=== PATIENT | female | born 1965 | race Caucasian/White ===

== ENCOUNTER 2020-05-14 17:59 | Emergency (ER) | payer OTHER, SELFPAY ==
--- NOTE | ~2020-05-14 | XR_ITS ---
EXAMINATION: XR chest 1V portable EXAM DATE: 05/14/2020 19:01 INDICATION: Cough. Shortness of breath. TECHNIQUE: Portable AP frontal chest x-ray was obtained. There is no prior study for comparison. FINDINGS: The cardiac silhouette is enlarged. Moderate hyperinflation. No confluent consolidation, pn eumothorax or pleural effusion suspected. There are no osseous abnormalities identified. IMPRESSION: 1. Cardiomegaly. 2. Hyperinflation. Reviewed, dictated and finalized at location A.
--- NOTE | 2020-05-14 18:03 | ECG_ITS ---
Measurements Intervals [place] Rate: 104 P: 35 HI: 164 QRS: -48 QRSD: 117 T: 79 QT: 323 QTc: 426 Interpretive Statements SINUS TACHYCARDIA POSSIBLE LEFT ATRIAL ENLARGEMENT LEFT ANTERIOR FASCICULAR BLOCK LEFT VENTRICULAR HYPERTROPHY AND ST-T CHANGE POOR R WAVE PROGRESSION, ANTERIOR LEADS BASELINE WANDER- I, II, III, AVR ABNORMAL ECG Electronically Signed On 05-14-2020 20:53:47 CDT by Chintan Quintero D.O.
[2020-05-14 18:04] VITALS: BP 183/87; PULSE 104; RESP 18; TEMP 36.2; O2SAT 97
[2020-05-14 18:33] VITALS: BP 199/102; PULSE 107; RESP 20; O2SAT 96
--- NOTE | 2020-05-14 19:10 | ED.URI ---
HPI - URI/Sore Throat General Chief Complaint: Upper Respiratory Infection Stated Complaint: cough, headache, feeling hot, covid tested Time Seen by Provider: 05/14/20 18:50 Source: patient Mode of arrival: ambulatory Limitations: no limitations History of Present Illness HPI Narrative: This is a 54 year old female that presents to the ER for cold symptoms x 2 days. Reports cough, congestion, headache and shortness of breath. Reports subjective fevers. Reports her father recently and was found to have coronavirus. Denies chest pain. Related Data Allergies Allergy/AdvReac Type Severity Reaction Status Date / Time No Known Allergies Allergy Verified 05/14/20 18:01 Review of Systems Review of Systems: Narrative: CONSTITUTIONAL: Reports fever, chills ENT: Reports rhinorrhea, congestion. Denies sore throat CARDIOVASCULAR: Denies chest pain or edema. RESPIRATORY: Reports cough and dyspnea. All systems reviewed & are unremarkable except as noted in HPI and below PMFSH Past Medical History Medical History (Updated 05/14/20 @ 21:19 by Zenobia Hogan PA-C) History of CHF (congestive heart failure) History of diabetes mellitus History of hyperlipidemia Social History Social History Gender identity (if verbalized by the patient): Female Exam Narrative: Exam Narrative: GENERAL: Well-appearing, obese, and in no acute distress. HEAD: Normocephalic, atraumatic. EYES: EOMI. ENT: Nares clear, no rhinorrhea or epistaxis. Mucous membranes moist. Oropharynx without tonsillar hypertrophy exudate or other lesions. Bilateral TMs pearly bill non-bulging NECK: Supple. No adenopathy or masses. CHEST: Clear to auscultation. No respiratory distress. No wheezes rales or rhonchi HEART: Regular rate and rhythm. No murmur heard. Normal peripheral pulses. EXTREMITIES: Normal range of motion. No edema. SKIN: Warm, dry, no rash. NEURO: No focal deficits. Alert and oriented x3. PSYCH: Normal mood and affect Course Vital Signs Vital signs: Vital Signs Temperature 97.1 F L 05/14/20 18:04 Pulse Rate 104 H 05/14/20 18:04 Respiratory Rate 18 05/14/20 18:04 Blood Pressure 183/87 H 05/14/20 18:04 Pulse Oximetry 97 05/14/20 18:04 Temperature 97.1 F L 05/14/20 18:04 Pulse Rate 102 H 05/14/20 20:38 Respiratory Rate 20 05/14/20 20:38 Blood Pressure 159/82 H 05/14/20 19:35 Pulse Oximetry 96 05/14/20 20:38 MDM - URI/Sore Throat MDM Narrative Medical decision making narrative: Patient presents to the emergency department for cold symptoms since yesterday. She is afebrile and nontoxic-appearing. Blood pressure elevated upon arrival, this improved without intervention. Patient's oxygen saturation has remained normal on room air. CBC without acute findings. Metabolic panel with mild hypokalemia and transaminitis, otherwise no acute findings. Patient given a dose of potassium in the ED. BNP is elevated to 1430. No vascular congestion noted on chest x-ray and no lower extremity edema. D-dimer is not elevated. Patient was tested today for coronavirus. Her father recently and was COVID positive. Patient able to ambulate in the ED and maintain oxygen saturation. She is stable and felt appropriate for further outpatient evaluation. She was given warnings to return to the ER Lab Data Attestation: I reviewed the patient's lab results. Result diagrams: 05/14/20 19:25 05/14/20 19:25 Labs: Lab Results 05/14/20 05/14/20 05/14/20 Range/Units 19:25 19:25 19:25 WBC 5.5 (4.5-10.0) K/mm3 RBC 4.42 (4.2-5.4) M/mm3 Hgb 13.3 (12.0-15.0) g/dL Hct 38.8 (37.0-47.0) % MCV 87.8 (80-100) fl MCH 30.1 (26-34) pg MCHC 34.3 (32-36) g/dl RDW 13.0 (11.5-14.5) % Plt Count 246 (150-375) k/mm3 MPV 10.5 H (7.4-10.4) fl Immature Gran % (Auto) 0.4 (0-0.5) % Neut % (Auto) 70.4 (45.5-73.1) % Lymph % (Auto) 11.4 L (18.3-44.2) % M
[2020-05-14 19:35] VITALS: BP 159/82; PULSE 105; RESP 22; O2SAT 96
[2020-05-14 19:46] LABS: Basophils Absolute Auto 0.1 K/mm3 (0.0-0.1); Basophils Percent Auto 0.9 % (0.2-1.2); Eosinophils Absolute Auto 0.2 K/mm3 (0-0.3); Eosinophils Percent Auto 2.7 % (0-4.4); Hematocrit 38.8 % (37.0-47.0); Hemoglobin 13.3 g/dL (12.0-15.0); Immature Granulocyte Absolute 0.02 K/mm3 (0.00-0.031); Immature Granulocyte Percent A 0.4 % (0-0.5); Lymphocytes Absolute Auto 0.63 K/mm3 (0.9-3.2); Lymphocytes Percent Auto 11.4 % (18.3-44.2); Mean Corpuscular HGB Conc 34.3 g/dl (32-36); Mean Corpuscular Hemoglobin 30.1 pg (26-34); Mean Corpuscular Volume 87.8 fl (80-100); Mean Platelet Volume 10.5 fl (7.4-10.4); Monocytes Absolute Auto 0.8 K/mm3 (0.1-0.6); Monocytes Percent Auto 14.2 % (2.6-8.5); Neutrophils Absolute Auto 3.9 K/mm3 (1.3-6.7); Neutrophils Percent Auto 70.4 % (45.5-73.1); Platelet Count Result 246 k/mm3 (150-375); Red Blood Count 4.42 M/mm3 (4.2-5.4); White Blood Count 5.5 K/mm3 (4.5-10.0)
[2020-05-14 19:54] LABS: INR 1.1; Prothrombin Time 13.5 Seconds (11.1-14.7)
[2020-05-14 19:55] LABS: Partial Thromboplastin Time 28.1 SECONDS (22.3-36.8)
[2020-05-14 19:57] LABS: D Dimer 0.32 ug/mL (<0.48)
[2020-05-14 20:02] LABS: Alanine Aminotransferase 49 U/L (4-35); Albumin Level 4.6 g/dL (3.5-5.1); Alkaline Phosphatase 87 U/L (38-126); Anion Gap 13 mmol/L (8-16); Aspartate Amino Transferase 67 U/L (14-36); Bilirubin,Total 0.8 mg/dL (0.2-1.3); Blood Urea Nitrogen 10 mg/dL (7-17); CRP 1.3 mg/dL (<1.0); Calcium 8.7 mg/dL (8.4-10.2); Carbon Dioxide 27 mmol/L (22-30); Chloride 96 mmol/L (98-107); Estimated CRCL calculation 96 ml/min; Estimated Glomerular Filt Rate > 60; Glucose 168 mg/dL (65-105); Lactate Dehydrogenase 546 U/L (313-618); Potassium 3.1 mmol/L (3.4-5.0); Sodium 136 mmol/L (137-145)
[2020-05-14 20:08] LABS: NT Pro B Type Natriuretic Pept 1430 PG/ML (5-100)
[2020-05-14 20:38] VITALS: PULSE 102; RESP 20; O2SAT 96
[2020-05-14 21:50] VITALS: BP 150/81; PULSE 104; RESP 20; O2SAT 95
== END 2020-05-14 22:22 | disposition home or self-care (01) ==
PROVIDERS: Physician Assistant; Emergency Provider Emergency Medicine
DX: B34.9 Viral infection, unspecified (principal); Z20.828 Contact with and (suspected) exposure to other viral communicable diseases; E11.9 Type 2 diabetes mellitus without complications; I50.9 Heart failure, unspecified; E78.5 Hyperlipidemia, unspecified; I51.7 Cardiomegaly; R00.0 Tachycardia, unspecified; R94.31 Abnormal electrocardiogram [ECG] [EKG]; I44.4 Left anterior fascicular block
CPT/HCPCS: 36415; 71045; 80053; 82728; 83615; 83880; 85025; 85380; 85610; 85730; 86140; 93005; 99284

== ENCOUNTER 2021-03-24 14:43 | Inpatient (IN) | payer OTHER, SELFPAY ==
[2021-03-24] VITALS (24 sets, daily range): BP systolic 142–172; BP diastolic 79–106; PULSE 81–97; RESP 15–32; TEMP 36.1–36.6; O2SAT 95–100; BMI 30.3
--- NOTE | ~2021-03-24 | XR_ITS ---
XR chest 2V DATE: 03/24/2021 15:10 INDICATION: Chest heaviness, shortness of breath. History of congestive heart failure, diabetes melli tus TECHNIQUE: PA and lateral views COMPARISON: 05/14/2020 portable AP chest FINDINGS: Cardiomegaly. No hilar or mediastinal enlargement. No pulmonary infiltrate or consolidation , pleural effusion or pulmonary vascular congestion or pneumothorax. Aortic calcification and minimal aortic unfolding. Mild degenerative spurring of the thoracic spine. IMPRESSION: Cardiomegaly; no active pulmonary disease or congestive change Reviewed, dictated and finalized at location A.
--- NOTE | 2021-03-24 14:58 | ECG_ITS ---
Measurements Intervals [place] Rate: 91 P: 41 CO: 168 QRS: -63 QRSD: 114 T: 84 QT: 406 QTc: 502 Interpretive Statements SINUS RHYTHM POSSIBLE LEFT ATRIAL ENLARGEMENT LEFT ANTERIOR FASCICULAR BLOCK NONSPECIFIC ST & T-WAVE ABNORMALITY- HIGH LATERAL LEADS ABNORMAL ECG Electronically Signed On 03-25-2021 8:16:15 CDT by Chintan Quintero D.O.
[2021-03-24 15:09] LABS: Basophils Absolute Auto 0.1 K/mm3 (0.0-0.1); Basophils Percent Auto 0.9 % (0.2-1.2); Eosinophils Absolute Auto 0.2 K/mm3 (0-0.3); Eosinophils Percent Auto 2.3 % (0-4.4); Hematocrit 42.1 % (37.0-47.0); Hemoglobin 13.5 g/dL (12.0-15.0); Immature Granulocyte Absolute 0.02 K/mm3 (0.00-0.031); Immature Granulocyte Percent A 0.3 % (0-0.5); Lymphocytes Absolute Auto 1.48 K/mm3 (0.9-3.2); Lymphocytes Percent Auto 18.6 % (18.3-44.2); Mean Corpuscular HGB Conc 32.1 g/dl (32-36); Mean Corpuscular Hemoglobin 28.9 pg (26-34); Mean Corpuscular Volume 90.1 fl (80-100); Monocytes Absolute Auto 0.5 K/mm3 (0.1-0.6); Monocytes Percent Auto 6.8 % (2.6-8.5); Neutrophils Absolute Auto 5.7 K/mm3 (1.3-6.7); Neutrophils Percent Auto 71.1 % (45.5-73.1); Platelet Count Result 316 k/mm3 (150-375); Red Blood Count 4.67 M/mm3 (4.2-5.4); Red Cell Distribution Width 14.7 % (11.5-14.5)
[2021-03-24 15:19] LABS: INR 1.3; Prothrombin Time 16.9 Seconds (11.1-14.7)
[2021-03-24 15:23] LABS: Anion Gap 15 mmol/L (8-16); Blood Urea Nitrogen 13 mg/dL (7-17); Calcium 9.2 mg/dL (8.4-10.2); Carbon Dioxide 20 mmol/L (22-30); Chloride 104 mmol/L (98-107); Estimated CRCL calculation 90 ml/min; Estimated Glomerular Filt Rate > 60; Glucose 184 mg/dL (65-105); Sodium 139 mmol/L (137-145)
[2021-03-24 15:35] LABS: NT Pro B Type Natriuretic Pept 13300 pg/mL (5-100); Troponin I 0.021 ng/mL (0.000-0.034)
[2021-03-24] MEDS: BUMETANIDE INJ 1 MG/4 ML VIAL 2 MG IV PUSH (16:40)
[2021-03-24] MEDS: POTASSIUM CHLORIDE 20 MEQ TABLET PO (16:40)
--- NOTE | 2021-03-24 17:55 | ED.SOB ---
HPI - SOB/Dyspnea General Chief Complaint: Shortness of Breath/Dyspnea Stated Complaint: SOB Time Seen by Provider: 03/24/21 16:25 Source: patient Mode of arrival: ambulatory Limitations: no limitations History of Present Illness HPI Narrative: 55-year-old female Here for shortness of breath Patient says she was diagnosed with congestive heart failure at the time of an ER visit at [facility] about 5 years ago She used to see a doctor in the area but they moved to [place] and for the last year she really has only been taking leftover medications and not seeing anybody She still has metoprolol but is out of Lasix She did say that she thinks he had Covid in May diagnosed here, but I cannot see that we have any Covid testing results in the EMR Her report is that she feels like she has shortness of breath and chest tightness all the time, does not matter if she is sitting or laying down or ambulating She has a tiny bit of swelling in her legs She does not have fever or cough Related Data Home Medications Medication Instructions Recorded Confirmed metoprolol tartrate 03/24/21 03/24/21 Allergies Allergy/AdvReac Type Severity Reaction Status Date / Time No Known Allergies Allergy Verified 03/24/21 14:57 Review of Systems Review of Systems: All systems reviewed & are unremarkable except as noted in HPI and below Constitutional: Constitutional: Reports no additional constitutional complaints, Denies chills, Denies fever(s) and Denies headache(s) Eyes: Eyes: Reports no additional eye complaints and Denies change in vision ENT: Denies headache(s) and Denies sore throat Cardiovascular: Cardiovascular: Reports chest pain, Denies radiating jaw, neck or arm pain and Denies dyspnea Respiratory: Respiratory: Denies cough and Reports dyspnea Gastrointestinal: Gastrointestinal: Denies abdominal pain, Denies diarrhea, Denies nausea and Denies vomiting Genitourinary: Genitourinary: Denies urinary frequency and Denies dysuria Musculoskeletal: Musculoskeletal: Denies deformity, Denies arthralgias, Denies joint swelling and Denies numbness Integumentary/Breasts: Skin/Breast: Denies rash and Denies wounds Neurologic: Denies headache(s), Denies focal weakness and Denies numbness Psychiatric: Psychiatric: Reports no additional psychiatric complaints Endocrine: Endocrine: Reports no additional endocrine complaints Hematologic/Lymphatic: Hematologic/Lymphatic: Reports no additional hematologic/lymphatic complaints Allergic/Immunologic: Allergic/Immunologic: Reports no additional allergic/immunologic complaints [facility] Past Medical History Medical History (Updated 03/24/21 @ 19:42 by Rajehs Reynaga MD) History of CHF (congestive heart failure) History of diabetes mellitus History of hyperlipidemia Social History Social History Gender identity (if verbalized by the patient): Female Exam Const: General: cooperative, no acute distress and alert Orientation/consciousness: patient oriented x3 (alert) HENMT: Head: normal to inspection, normocephalic and atraumatic Ears: external ears normal General nose exam: no epistaxis Eyes: Conjunctivae: conjunctivae normal EOM: EOMs intact bilaterally Neck: Neck: normal visual inspection, supple and no JVD Resp: Effort & Inspection: normal respiratory effort and not labored Auscultation: clear to auscultation bilaterally and other (BS =) Cardio: Rate: regular rate Rhythm: regular rhythm Heart sounds: no murmurs GI: GI Palp: Yes Soft to palpation and No Tenderness to palpation present (GI) Skin: General skin exam: normal color and no rashes or lesions noted Neuro: General: patient oriented x3 (alert) and moves all extremities Speech: normal speech Extrem: General: normal to inspection Other: Trace edema Psych: Affect: normal affect Course Course Emergency Course: Improved after diuresis and treatment of hypertension Discussed with hospital
[2021-03-24] MEDS: ENALAPRILAT 1.25 MG/ML VIAL IV PUSH (18:34)
--- NOTE | 2021-03-24 21:47 | PM.IMHP ---
H&P: HPI History of Present Illness Date/Time: 03/24/21 21:47 Chief Complaint: Shortness of breath Narrative: patient is a 55-year-old female with diagnosis of congestive heart failure with systolic dysfunction back 5 years ago with ejection fraction at 15% was given a LifeVest at that time and some medications. Follow-up echocardiogram with improvement of her heart failure up to 45% and subsequent removal of the life vest. He never followed up with copy messenger since then . Wil used to see her regular doctor and is on Lasix and metoprolol. She has not seen her doctor who is in [place] since a year now. She ran out of her Lasix couple of days ago. Wil started feeling short of breath and cough. She also reports some chest heaviness since past few days. She denies any chest pain per se that. See also notes increased swelling in her legs. No fever or chills. She did have COVID infection back in May and subsequent vaccination against COVID in December of 2020. Workup in the ER revealed normal CBC and BMP troponin was negative at 0.021 [place] [address]. Her chest x-ray showed cardiomegaly with no active pulmonary disease or congestive changes. She was given IV Lasix in the ER. EKG showed normal rate with sinus rhythm left axis deviation with no acute changes compared to previous was unchanged. she is feeling little better since She got the Lasix in the ER Review of Systems Review of Systems: Narrative: - CONSTITUTIONAL: Denies weight loss, fever and chills. - HEENT: Denies changes in vision and hearing - RESPIRATORY: reports SOB and cough. - CV: Denies palpitations and CP reports chest heaviness - GI: Denies abdominal pain, nausea, vomiting and diarrhea. - : Denies dysuria and urinary frequency. - MSK: Denies myalgia and joint pain. - SKIN: Denies rash and pruritus. - NEUROLOGICAL: Denies headache and syncope. - PSYCHIATRIC: Denies recent changes in mood. Denies anxiety and depression. All systems reviewed & are unremarkable except as noted in HPI and below Neurologic: Reports weakness Endocrine: Endocrine: Reports fatigue PMFSH Past Medical History Medical History (Updated 03/24/21 @ 21:53 by Gama Stewart MD) History of CHF (congestive heart failure) History of diabetes mellitus History of hyperlipidemia Social History Social History Gender identity (if verbalized by the patient): Female Meds Home Medications and Allergies Home Medications Medication Instructions Recorded Confirmed Type benzonatate [Tessalon Perles] 100 mg PO TID PRN 4 Days #14 cap 05/14/20 Rx metoprolol tartrate 03/24/21 03/24/21 History Allergies Allergy/AdvReac Type Severity Reaction Status Date / Time No Known Allergies Allergy Verified 03/24/21 14:57 Vital Signs Vital Signs - 24 hr 03/24/21 14:54 03/24/21 16:31 03/24/21 16:56 Temperature 97.4 F L Pulse Rate 92 88 91 Respiratory Rate 17 29 H Blood Pressure 170/100 H 155/97 H Pulse Oximetry 97 98 99 03/24/21 17:10 03/24/21 17:24 03/24/21 17:30 Temperature Pulse Rate 94 97 93 Respiratory Rate 32 H 21 H 27 H Blood Pressure Pulse Oximetry 98 99 98 03/24/21 17:31 03/24/21 17:32 03/24/21 17:45 Temperature Pulse Rate 93 90 92 Respiratory Rate 27 H 29 H 18 Blood Pressure 172/106 H Pulse Oximetry 97 97 99 03/24/21 17:46 03/24/21 18:00 03/24/21 18:01 Temperature Pulse Rate 90 Respiratory Rate 22 H Blood Pressure 150/97 H 147/92 H Pulse Oximetry 97 99 98 03/24/21 18:15 03/24/21 18:16 03/24/21 18:30 Temperature Pulse Rate 88 90 87 Respiratory Rate 15 15 22 H Blood Pressure 147/90 H Pulse Oximetry 99 98 97 03/24/21 18:31 03/24/21 18:32 03/24/21 18:45 Temperature Pulse Rate 88 93 85 Respiratory Rate 19 25 H 28 H Blood Pressure 149/89 H Pulse Oximetry 98 97 03/24/21 18:46 03/24/21 19:00 03/24/21 19:01 Temperature Pulse Rate 85 82 82 Respiratory Ra
--- NOTE | 2021-03-24 22:17 | ADMGEN ---
This patient, Miriam Silver, was admitted to [facility] Surg Room 331-01. Patient/family oriented to hospital policies and general routines including ID bracelet, bed and alarms, visiting hours, pain management, procedures, bathroom and other care routines, personal items, smoking policy, room service/diet, and visiting hours. Information on how to activate the Rapid Response Team has been discussed. Patient/Family are encouraged to report perceived risks to care and to ask questions if they do not understand what they are told or what they should do.
[2021-03-24 22:37] LABS: Troponin I 0.026 ng/mL (0.000-0.034)
[2021-03-24] MEDS: carvediloL 3.125 MG TABLET PO (22:43)
[2021-03-25] VITALS (10 sets, daily range): BP systolic 119–140; BP diastolic 63–80; PULSE 62–91; RESP 16–18; TEMP 36.1–36.7; O2SAT 95–99
[2021-03-25 06:28] LABS: Basophils Absolute Auto 0.1 K/mm3 (0.0-0.1); Basophils Percent Auto 0.9 % (0.2-1.2); Eosinophils Absolute Auto 0.6 K/mm3 (0-0.3); Hematocrit 35.4 % (37.0-47.0); Hemoglobin 11.5 g/dL (12.0-15.0); Immature Granulocyte Absolute 0.02 K/mm3 (0.00-0.031); Immature Granulocyte Percent A 0.3 % (0-0.5); Lymphocytes Absolute Auto 2.38 K/mm3 (0.9-3.2); Lymphocytes Percent Auto 30.3 % (18.3-44.2); Mean Corpuscular HGB Conc 32.5 g/dl (32-36); Mean Corpuscular Hemoglobin 28.8 pg (26-34); Mean Corpuscular Volume 88.7 fl (80-100); Mean Platelet Volume 9.9 fl (7.4-10.4); Monocytes Absolute Auto 0.6 K/mm3 (0.1-0.6); Monocytes Percent Auto 8.1 % (2.6-8.5); Neutrophils Absolute Auto 4.2 K/mm3 (1.3-6.7); Neutrophils Percent Auto 53.4 % (45.5-73.1); Platelet Count Result 229 k/mm3 (150-375); Red Blood Count 3.99 M/mm3 (4.2-5.4); Red Cell Distribution Width 14.4 % (11.5-14.5); White Blood Count 7.9 K/mm3 (4.5-10.0)
[2021-03-25 06:41] LABS: Anion Gap 9 mmol/L (8-16); Blood Urea Nitrogen 12 mg/dL (7-17); Calcium 8.5 mg/dL (8.4-10.2); Carbon Dioxide 26 mmol/L (22-30); Chloride 104 mmol/L (98-107); Estimated CRCL calculation 90 ml/min; Estimated Glomerular Filt Rate > 60; Glucose 120 mg/dL (65-105); Potassium 3.1 mmol/L (3.4-5.0); Sodium 139 mmol/L (137-145)
[2021-03-25] MEDS: carvediloL 3.125 MG TABLET PO (08:49)
[2021-03-25] MEDS: lisinopriL 5 MG TABLET PO (08:49)
[2021-03-25] MEDS: ENOXAPARIN 40 MG/0.4 ML SYRINGE SUB-Q (08:49)
[2021-03-25] MEDS: POTASSIUM CHLORIDE 20 MEQ TABLET.ER PO (08:50)
[2021-03-25] MEDS: ASPIRIN 81 MG CHEWABLE TABLET PO (08:50)
[2021-03-25] MEDS: FUROSEMIDE INJ 40 MG/4 ML VIAL 20 MG IV PUSH (08:51)
[2021-03-25 09:34] LABS: Magnesium 2.1 mg/dL (1.6-2.3)
--- NOTE | 2021-03-25 10:07 | PM.CNCAR ---
Assessment and Plan Assessment and plan (1) Accelerated essential hypertension: Code(s): I10 - Essential (primary) hypertension Status: Acute Assessment and Plan: In part related to lack of medications recently. Will increase her carvedilol to 6.25 mg p.o. b.i.d.. Discontinue her lisinopril and switch her to losartan 25 mg p.o. daily and hopefully transition her to Entresto if her insurance will approve. Depending on if her chest heaviness improves following CHF treatment, she may need repeat ischemic evaluation. (2) Nonischemic cardiomyopathy: Code(s): I42.8 - Other cardiomyopathies Status: Acute Assessment and Plan: Via cardiac catheterization several years ago, there is supposedly no significant coronary history seen. Will review records from [facility]. (3) Congestive heart failure: Code(s): I50.9 - Heart failure, unspecified Status: Acute Assessment and Plan: Acute on chronic decompensated heart failure related to lack of medications recently. Will Order 2D echocardiogram Doppler to re-evaluate EF. Again restart her home medications but with some adjustments. Will increase her carvedilol to 6.25 mg p.o. b.i.d., losartan 25 mg p.o. daily to be started and discontinue her lisinopril. Intake and output as well as daily weights. Basic metabolic panel in the morning. Increase her furosemide to 40 mg IV. b.i.d.. (4) Systolic dysfunction: Code(s): I51.9 - Heart disease, unspecified Status: Acute Assessment and Plan: History of severe nonischemic CHF with ejection fraction previously as low as 15%. At last evaluation around 45% per patient (5) Cough: Code(s): R05 - Cough Status: Acute Assessment and Plan: This is related to heart failure (6) Electrolyte imbalance: Code(s): E87.8 - Other disorders of electrolyte and fluid balance, not elsewhere classified Status: Acute Assessment and Plan: Replace her potassium 40 mg p.o. x1 History of Present Illness History of Present Illness Consult date/time: 03/25/21 10:07 Requesting physician: Gama Stewart MD Consult reason: congestive heart failure Reason For Visit: chf Narrative: Date of service 03/25/2021: Reason for consultation: CHF History patient is a 55-year-old female who does carry a diagnosis of systolic congestive heart failure. This dates back about 5 years. She had ejection fraction of 15% at that time and this was originally treated at [facility]. Her primary care doctor at the time (Dr. Hanna) referred her to [facility] for cardiac care. She states that she was seen a few times there. Her ejection fraction did improve and she has not seen a meteorological equipment repairer in several years. She does state that her ejection fraction improved up to around 45%. She did undergo a cardiac catheterization per patient which she had no coronary disease. Over the past year or so she has not seen any doctors as she has lost her insurance. Normal she no longer seeing her previous primary care physician either. She has been out of her medications for several weeks. She has a 2 week history of shortness of breath. Shortness breath progressed to the point of having dyspnea at rest. She also has a persistent heaviness in her chest. It does get worse with exercise. She has had this sensation the past which she relates to excessive fluid. She has had progressively worsening leg swelling as well as a cough whenever she lays flat. She has symptoms of orthopnea as well as paroxysmal nocturnal dyspnea. She denies any syncope, presyncope. She has palpitations which she feels her heart beating hard as well as skipping at times. She has been started on furosemide and is already feeling a little bit better but still has some dyspnea with exertion such as walking to and from the bathroom. Review of Systems Review of Systems: All systems reviewed & are unremarkable except as noted in HPI and bel
--- NOTE | 2021-03-25 11:30 | PM.IMPN ---
Progress Note: A&P Assessment and Plan (1) Congestive heart failure: Qualifiers: Heart failure type: combined systolic and diastolic Heart failure chronicity: acute on chronic Qualified Code(s): I50.43 - Acute on chronic combined systolic (congestive) and diastolic (congestive) heart failure Code(s): I50.9 - Heart failure, unspecified Status: Acute Assessment and Plan: Acute on chronic decompensated heart failure. She describes a history of severely reduced EF 15% diagnosed around 2015. She wore a LifeVest at that time and was treated medically. She describes repeat echo several months later showed improved EF 45%. She has not seen the vice president planning at [facility] since that time and has been managed by her PCP. She ran out of her Lasix 1 week ago and presents with shortness of breath and cough. Appreciate cardiology input. She remains on IV Lasix 40 BID. Her lisinopril was changed to losartan with intentions of possibly starting Entresto. Home metoprolol changed to carvedilol which has been increased today. Echocardiogram pending. Monitor fluid status with daily weights, I&Os. (2) Cough: Code(s): R05 - Cough Status: Acute Assessment and Plan: Suspect related to above. CXR negative. Tested for COVID-19; unlikely since she had COVID in May and was received both Pfizer vaccinations in December 2020. She is on droplet isolation precautions until results are available. (3) Accelerated essential hypertension: Code(s): I10 - Essential (primary) hypertension Status: Chronic Assessment and Plan: Cardiology making medication adjustments - appreciate input. BPs elevated on arrival now much improved, last 130/80. On losartan, carvedilol and lasix today. Monitor BP and adjust treatment as needed. (4) Nonischemic cardiomyopathy: Code(s): I42.8 - Other cardiomyopathies Status: Chronic Assessment and Plan: See above. Echo pending. 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 Check A1c in AM. Continue to monitor with accu-cheks and adjust treatment as needed, cover with SSI. Additional Plan Patient has Eliquis on home meds. She has not taken this in quite some time. She is unsure how long she has been off this medication or what she was prescribed it for in the past. She denies history of blood clots or arrhythmias. Subjective Date/time seen: 03/25/21 11:15 Interval history: Ms. Silver is a 55yo F admitted for acute on chronic decompensated heart failure. She is feeling a little better today. Shortness of breath is improved but she is still having some exertional dyspnea with walking in the room today. Nonproductive cough persists. She describes having chest heaviness yesterday which is improved today now that she can breathe easier. Denies nausea, vomiting or abdominal pain. She had some mild CHARY leg swelling which is improved. Review of Systems Review of Systems: All systems reviewed & are unremarkable except as noted in HPI and below Exam Narrative: Exam Narrative: General: Female resting comfortably sitting up in bed in no acute distress. HEENT: Normocephalic, EOMI, oral mucosa moist. Cardiovascular: Rate and rhythm are regular. Respiratory: Decreased breath sounds bilaterally without crackles. Respirations even and non-labored. To
[2021-03-25] MEDS: POTASSIUM CHLORIDE 20 MEQ TABLET 40 MEQ PO (14:58)
[2021-03-25 18:09] LABS: Glucose Point of Care 183 mg/dl (65-105)
[2021-03-25] MEDS: FUROSEMIDE INJ 40 MG/4 ML VIAL IV PUSH (18:09)
[2021-03-25] MEDS: carvediloL 6.25 MG TABLET PO (21:18)
[2021-03-26] VITALS (9 sets, daily range): BP systolic 109–130; BP diastolic 69–86; PULSE 70–89; RESP 14–20; TEMP 36–36.8; O2SAT 94–98
[2021-03-26 05:18] LABS: Glucose Point of Care 148 mg/dl (65-105)
[2021-03-26 06:35] LABS: Potassium 3.7 mmol/L (3.4-5.0)
[2021-03-26 06:42] LABS: Anion Gap 8 mmol/L (8-16); Blood Urea Nitrogen 14 mg/dL (7-17); Calcium 8.9 mg/dL (8.4-10.2); Carbon Dioxide 27 mmol/L (22-30); Chloride 106 mmol/L (98-107); Estimated CRCL calculation 78 ml/min; Estimated Glomerular Filt Rate > 60; Glucose 116 mg/dL (65-105); Potassium 3.6 mmol/L (3.4-5.0); Sodium 141 mmol/L (137-145)
[2021-03-26 06:43] LABS: Hematocrit 36.9 % (37.0-47.0); Hemoglobin 11.9 g/dL (12.0-15.0); Mean Corpuscular HGB Conc 32.2 g/dl (32-36); Mean Corpuscular Hemoglobin 28.5 pg (26-34); Mean Corpuscular Volume 88.3 fl (80-100); Platelet Count Result 263 k/mm3 (150-375); Red Blood Count 4.18 M/mm3 (4.2-5.4); Red Cell Distribution Width 14.1 % (11.5-14.5); White Blood Count 8.9 K/mm3 (4.5-10.0)
[2021-03-26 07:35] LABS: Hemoglobin A1C 6.8 % (<5.7)
[2021-03-26 08:25] LABS: Glucose Point of Care 129 mg/dl (65-105)
[2021-03-26] MEDS: FUROSEMIDE INJ 40 MG/4 ML VIAL IV PUSH ×2 (08:38→17:14)
[2021-03-26] MEDS: ASPIRIN 81 MG CHEWABLE TABLET PO (08:38)
[2021-03-26] MEDS: LOSARTAN POTASSIUM 25 MG TABLET PO (08:38)
[2021-03-26] MEDS: POTASSIUM CHLORIDE 20 MEQ TABLET.ER PO (08:38)
[2021-03-26] MEDS: carvediloL 6.25 MG TABLET PO ×2 (08:39→21:17)
[2021-03-26] MEDS: ENOXAPARIN 40 MG/0.4 ML SYRINGE SUB-Q (08:39)
--- NOTE | 2021-03-26 11:08 | PM.PNCARD ---
Progress Note: A&P Assessment and Plan (1) Accelerated essential hypertension: Code(s): I10 - Essential (primary) hypertension Status: Chronic Assessment and Plan: Continue carvedilol and losartan. Continue IV diuretics. Likely transition to oral diuretics tomorrow. Additional 40 mEq p.o. potassium x1. (2) Nonischemic cardiomyopathy: Code(s): I42.8 - Other cardiomyopathies Status: Chronic Assessment and Plan: Via cardiac catheterization several years ago, there is supposedly no significant coronary history seen. Will review records from [facility]. (3) Congestive heart failure: Qualifiers: Heart failure chronicity: acute on chronic Heart failure type: combined systolic and diastolic Qualified Code(s): I50.43 - Acute on chronic combined systolic (congestive) and diastolic (congestive) heart failure Code(s): I50.9 - Heart failure, unspecified Status: Acute Assessment and Plan: Echocardiogram is still pending. Continue carvedilol and losartan. Transition to oral furosemide tomorrow. (4) Systolic dysfunction: Code(s): I51.9 - Heart disease, unspecified Status: Acute Assessment and Plan: History of severe nonischemic CHF with ejection fraction previously as low as 15%. At last evaluation around 45% per patient (5) Cough: Code(s): R05 - Cough Status: Acute Assessment and Plan: This is related to heart failure (6) Electrolyte imbalance: Code(s): E87.8 - Other disorders of electrolyte and fluid balance, not elsewhere classified Status: Acute Assessment and Plan: Replace and additional potassium 40 mg p.o. x1 Subjective Date/time seen: 03/26/21 11:08 Interval history: Ms. Silver is a 55yo F admitted for acute on chronic decompensated heart failure. Date of service 03/26/2021: She feels better. She is less short of breath still somewhat dyspneic when walking to the bathroom after her Lasix wears off. No paroxysmal nocturnal dyspnea. No chest pain Review of Systems Review of Systems: All systems reviewed & are unremarkable except as noted in HPI and below Constitutional: Constitutional: Denies fatigue, Denies headache(s) and Denies weakness Eyes: Eyes: Denies blurry vision ENT: Reports Normal hearing present, Denies headache(s) and Denies neck pain Cardiovascular: Cardiovascular: Reports chest pain, Reports leg edema, Reports dyspnea and Reports dyspnea on exertion Respiratory: Respiratory: Reports cough, Reports dyspnea and Reports dyspnea on exertion Gastrointestinal: Gastrointestinal: Denies abdominal pain Genitourinary: Genitourinary: Denies hematuria and Denies flank pain Musculoskeletal: Musculoskeletal: Denies back pain and Denies neck pain Integumentary/Breasts: Skin/Breast: Denies dry skin and Denies unusual bruising Neurologic: Reports Normal hearing present, Denies confusion, Denies headache(s) and Denies weakness Psychiatric: Psychiatric: Denies anxiety and Denies confusion Endocrine: Endocrine: Denies fatigue and Denies flushing Hematologic/Lymphatic: Hematologic/Lymphatic: Denies easy bleeding Allergic/Immunologic: Allergic/Immunologic: Denies GI upset with certain foods Exam Narrative: Exam Narrative: Alert oriented appears to be in no acute distress. Appears stated age Const: General: comfortable and no acute distress; No confusion Orientation/consciousness: No confusion HENMT: General nose exam: no epistaxis Eyes: Sclera: sclerae normal Neck: Neck: supple and no JVD Chest: Other: No reproducible chest wall pain to palpation Resp: Auscultation: diminished lung sounds Cardio: Rate: regular rate Rhythm: regular rhythm GI: Inspection: non-distended Skin: General skin exam: normal color Neuro: General: No confusion Cranial nerves: Yes Normal hearing present Cognition (Neuro): normal cognition Speech: normal speech Extrem: General: edema (Mild
[2021-03-26] MEDS: POTASSIUM CHLORIDE 20 MEQ TABLET 40 MEQ PO (11:22)
[2021-03-26 12:20] LABS: Glucose Point of Care 161 mg/dl (65-105)
[2021-03-26 13:51] LABS: SARS-CoV-2 RNA PCR Negative (Negative)
--- NOTE | 2021-03-26 16:46 | PM.IMPN ---
Progress Note: A&P Assessment and Plan (1) Congestive heart failure: Qualifiers: Heart failure chronicity: acute on chronic Heart failure type: combined systolic and diastolic Qualified Code(s): I50.43 - Acute on chronic combined systolic (congestive) and diastolic (congestive) heart failure Code(s): I50.9 - Heart failure, unspecified Status: Acute Assessment and Plan: -Acute on chronic decompensated heart failure - She describes a history of severely reduced EF 15% diagnosed around 2016. She wore a LifeVest at that time and was treated medically. She describes repeat echo several months later showed improved EF 45%. Her dairy management specialist at that time said that there was no further need for follow-up and she has been following closely with her PCP since -She ran out of her Lasix 1 week ago and presented with shortness of breath and cough.She remains on IV Lasix 40 BID. -Her lisinopril was changed to losartan with intentions of possibly starting Entresto. - Home metoprolol changed to carvedilol -Echocardiogram pending. -likely discharge in 1-2 days (2) Cough: Code(s): R05 - Cough Status: Acute Assessment and Plan: Suspect related to above. CXR negative. COVID-19 negative -could also be due to atelectasis as she would cough with deep inspiration. I recommended deep breathing exercises (3) Accelerated essential hypertension: Code(s): I10 - Essential (primary) hypertension Status: Chronic Assessment and Plan: Last blood pressure 109/69 -continue losartan, carvedilol and lasix today. (4) Nonischemic cardiomyopathy: Code(s): I42.8 - Other cardiomyopathies Status: Chronic Assessment and Plan: See above. Echo pending. (5) Type 2 diabetes mellitus: Qualifiers: Diabetes mellitus termite treater helper insulin use: without termite treater helper use Diabetes mellitus complication status: without complication Qualified Code(s): E11.9 - Type 2 diabetes mellitus without complications Code(s): E11.9 - Type 2 diabetes mellitus without complications Status: Chronic Assessment and Plan: She reports is diet-controlled without medications. -A1c 6.8 -follow up with PCP Additional Plan Patient has Eliquis on home meds. She has not taken this in quite some time. She is unsure how long she has been off this medication or what she was prescribed it for in the past. She denies history of blood clots or arrhythmias. Time Spent With Patient Time with patient: 25 - 35 minutes Subjective Date/time seen: 03/26/21 16:46 Interval history: Pt is a 55 y/o here for CHF. Patient was seen today and states her dyspnea on exertion and orthopnea has improved but not completely gone away. She continues to have a cough. She feels a little bit constipated than her last bowel movement was Thursday. She is eating and drinking well and her appetite has been better than it has been in a while. She has diet-controlled diabetes and I discussed her A1c with her. She denies chest pain. Review of Systems Review of Systems: All systems reviewed & are unremarkable except as noted in HPI and below Exam Narrative: Exam Narrative: General: Well developed well nourished patient in NAD HEENT: normocephalic Neck: supple Neuro: Alert and oriented x4 CV:RRR Resp: No crackles or rhonchi but she did have a slight dry cough with deep inspiration. Abd: Soft, non distended. No pain to palpation. Positive bowel sounds Extremities: No swelling, erythema, or pain to palpation. Objective Data Vital Signs Vital Signs: Vital Signs - 24 hr 03/25/21 20:00 03/25/21 20:05 03/25/21 21:18 Temperature 98 F Pulse Rate 76 78 78 Respiratory Rate 18 18 Blood Pressure 133/78 Pulse Oximetry 99 99 03/26/21 00:00 03/26/21 04:00 03/26/21 08:00 Temperature 98.3 F 98.2 F Pulse Rate 80 70 74 Respiratory Rate 18 16 18 Blood Pressure 124/77 130/8
[2021-03-26 17:14] LABS: Glucose Point of Care 143 mg/dl (65-105)
[2021-03-26] MEDS: polyethylene glycoL 3350 17 GM POWD.PACK PO (17:15)
[2021-03-26 21:58] LABS: Glucose Point of Care 171 mg/dl (65-105)
[2021-03-27] VITALS: PULSE 73
[2021-03-27 04:00] VITALS: PULSE 82
[2021-03-27 06:00] VITALS: BP 127/78; PULSE 68; RESP 20; TEMP 36.7; O2SAT 97
--- NOTE | 2021-03-27 06:00 | ECHO_ITS ---
Patient Info Name: Miriam Silver Age: 55 years : 1965 Gender: Female Ht: 64 in Wt: 176 lbs BSA: 1.92 m2 HR: 74 bpm BP: 130 / 86 mmHg Heart Rhythm: Sinus Rhythm Technical Quality: Good Exam Date: 03/27/2021 8:01 AM Exam Location: [facility] Patient Status: Inpatient Admit Date: 03/26/2021 Staff Ordering Physician: Rajesh Reynaga MD Survey Worker: Bobby Kaplan RDCS, RT Attending Provider: Madeleine Tovra PA-C Referring Physician: Ronnell TOVAR; Exam Type: CA echo doppler color flow Study Info Indications I50.9 - Heart failure, unspecified Complete two-dimensional, color flow and Doppler transthoracic echocardiogram is performed. Strain analysis performed. Summary 1. Complete two-dimensional, color flow and Doppler transthoracic echocardiogram is performed. 2. Strain analysis performed. 3. Left ventricular chamber dimension is severely enlarged. 4. Left ventricular systolic function is severely reduced, estimated at 25-30%. 5. There is mildly increased left ventricular wall thickness. 6. The left ventricular diastolic function is grade II diastolic dysfunction. 7. Global longitudinal strain is abnormal at -7 %. 8. Left atrial chamber dimension is moderately enlarged. 9. There is moderate aortic valve regurgitation. 10. There is moderate to severe mitral valve regurgitation. 11. There is mild tricuspid valve regurgitation. 12. Mild pulmonary hypertension, estimated pulmonary arterial systolic pressure is 39 mmHg. 13. There is mild pulmonic regurgitation. Left Ventricle Left ventricular chamber dimension is severely enlarged. Left ventricular systolic function is severely reduced, estimated at 25-30%. There is mildly increased left ventricular wall thickness. The left ventricular diastolic function is grade II diastolic dysfunction. Global longitudinal strain is abnormal at -7 %. Right Ventricle Right ventricular chamber dimension is normal. Right ventricular systolic function is reduced. Left Atria Left atrial chamber dimension is moderately enlarged. Right Atria Right atrial chamber dimension is normal. Atrial Septum Intact interatrial septum visualized by color flow imaging. Aortic Valve The aortic valve is trileaflet. There is mild aortic valve sclerosis. There is no aortic valve stenosis. There is moderate aortic valve regurgitation. Pulmonic Valve The pulmonic valve is normal. There is no pulmonic valve stenosis. There is mild pulmonic regurgitation. Mitral Valve The mitral valve has thickened leaflets. There is no mitral valve stenosis. There is moderate to severe mitral valve regurgitation. Tricuspid Valve The tricuspid valve leaflets are normal. There is no significant tricuspid valve stenosis. There is mild tricuspid valve regurgitation. Mild pulmonary hypertension, estimated pulmonary arterial systolic pressure is 39 mmHg. Pericardium/Pleural The pericardium appears normal. There is trivial pericardial effusion. Inferior Vena Cava Dilated inferior vena cava with <50% collapse upon inspiration consistent with elevated right atrial pressure, 15 mmHg. Aorta The aortic root size at the sinus of Valsalva is normal. The prox ascending aorta size is normal. Left Ventricular Outflow Tract Name Value Normal
[2021-03-27 06:24] LABS: Alanine Aminotransferase 17 U/L (4-35); Albumin Level 4.3 g/dL (3.5-5.1); Alkaline Phosphatase 66 U/L (38-126); Anion Gap 11 mmol/L (8-16); Aspartate Amino Transferase 27 U/L (14-36); Bilirubin,Total 1.4 mg/dL (0.2-1.3); Blood Urea Nitrogen 17 mg/dL (7-17); Calcium 9.6 mg/dL (8.4-10.2); Carbon Dioxide 27 mmol/L (22-30); Chloride 102 mmol/L (98-107); Estimated CRCL calculation 78 ml/min; Estimated Glomerular Filt Rate > 60; Glucose 121 mg/dL (65-105); Sodium 140 mmol/L (137-145)
[2021-03-27 07:51] LABS: Glucose Point of Care 145 mg/dl (65-105)
[2021-03-27 08:52] VITALS: PULSE 70
[2021-03-27] MEDS: ASPIRIN 81 MG CHEWABLE TABLET PO (08:52)
[2021-03-27] MEDS: carvediloL 6.25 MG TABLET PO (08:52)
[2021-03-27] MEDS: POTASSIUM CHLORIDE 20 MEQ TABLET.ER PO (08:52)
[2021-03-27] MEDS: FUROSEMIDE INJ 40 MG/4 ML VIAL IV PUSH (08:53)
[2021-03-27] MEDS: LOSARTAN POTASSIUM 25 MG TABLET PO (08:53)
[2021-03-27] MEDS: polyethylene glycoL 3350 17 GM POWD.PACK PO (08:53)
[2021-03-27] MEDS: ENOXAPARIN 40 MG/0.4 ML SYRINGE SUB-Q (08:53)
--- NOTE | 2021-03-27 09:26 | PM.PNCARD ---
Progress Note: A&P Assessment and Plan (1) Accelerated essential hypertension: Code(s): I10 - Essential (primary) hypertension Status: Chronic Assessment and Plan: Continue carvedilol and losartan. (2) Nonischemic cardiomyopathy: Code(s): I42.8 - Other cardiomyopathies Status: Chronic Assessment and Plan: Via cardiac catheterization several years ago, there is supposedly no significant coronary history seen. Will review records from [facility]. (3) Congestive heart failure: Qualifiers: Heart failure chronicity: acute on chronic Heart failure type: combined systolic and diastolic Qualified Code(s): I50.43 - Acute on chronic combined systolic (congestive) and diastolic (congestive) heart failure Code(s): I50.9 - Heart failure, unspecified Status: Acute Assessment and Plan: EF less than 35%. Visually estimated at 25-30%. Continue carvedilol and losartan. DC IV furosemide. Resume furosemide 40 mg daily. She is agreeable to a LifeVest. Will add low-dose spironolactone also (4) Systolic dysfunction: Code(s): I51.9 - Heart disease, unspecified Status: Acute Assessment and Plan: History of severe nonischemic CHF with ejection fraction previously as low as 15%. At last evaluation around 45% per patient (5) Cough: Code(s): R05 - Cough Status: Acute Assessment and Plan: This is related to heart failure (6) Electrolyte imbalance: Code(s): E87.8 - Other disorders of electrolyte and fluid balance, not elsewhere classified Status: Acute Assessment and Plan: stable Subjective Date/time seen: 03/27/21 09:26 Interval history: Ms. Silver is a 55yo F admitted for acute on chronic decompensated heart failure. Date of service 03/27/2021: She feels better. She has no chest Heaviness. She is not having any shortness of breath walking to and from the bathroom. No dyspnea at rest Review of Systems Review of Systems: All systems reviewed & are unremarkable except as noted in HPI and below Constitutional: Constitutional: Denies fatigue, Denies headache(s) and Denies weakness Eyes: Eyes: Denies blurry vision ENT: Reports Normal hearing present, Denies headache(s) and Denies neck pain Cardiovascular: Cardiovascular: Reports chest pain, Reports leg edema, Reports dyspnea and Reports dyspnea on exertion Respiratory: Respiratory: Reports cough, Reports dyspnea and Reports dyspnea on exertion Gastrointestinal: Gastrointestinal: Denies abdominal pain Genitourinary: Genitourinary: Denies hematuria and Denies flank pain Musculoskeletal: Musculoskeletal: Denies back pain and Denies neck pain Integumentary/Breasts: Skin/Breast: Denies dry skin and Denies unusual bruising Neurologic: Reports Normal hearing present, Denies confusion, Denies headache(s) and Denies weakness Psychiatric: Psychiatric: Denies anxiety and Denies confusion Endocrine: Endocrine: Denies fatigue and Denies flushing Hematologic/Lymphatic: Hematologic/Lymphatic: Denies easy bleeding Allergic/Immunologic: Allergic/Immunologic: Denies GI upset with certain foods Exam Narrative: Exam Narrative: Alert oriented appears to be in no acute distress. Appears stated age Const: General: comfortable and no acute distress; No confusion Orientation/consciousness: No confusion HENMT: General nose exam: no epistaxis Eyes: Sclera: sclerae normal Neck: Neck: supple and no JVD Chest: Other: No reproducible chest wall pain to palpation Resp: Auscultation: diminished lung sounds Cardio: Rate: regular rate Rhythm: regular rhythm GI: Inspection: non-distended Skin: General skin exam: normal color Neuro: General: No confusion Cranial nerves: Yes Normal hearing present Cognition (Neuro): normal cognition Speech: normal speech Extrem: General: no edema Psych: Mental Status: mental status grossly normal Objective Data Vital S
[2021-03-27 11:46] LABS: Glucose Point of Care 191 mg/dl (65-105)
--- NOTE | 2021-03-27 12:07 | PM.DS ---
DS: Admitting Diagnosis Admitting Diagnosis Admitting Diagnosis: CHF exacerbation DS: Discharge Diagnosis Discharge Diagnosis (1) Congestive heart failure: Qualifiers: Heart failure chronicity: acute on chronic Heart failure type: combined systolic and diastolic Qualified Code(s): I50.43 - Acute on chronic combined systolic (congestive) and diastolic (congestive) heart failure Code(s): I50.9 - Heart failure, unspecified Status: Acute Assessment and Plan: -Acute on chronic decompensated heart failure - She describes a history of severely reduced EF 15% diagnosed around 2015. She wore a LifeVest at that time and was treated medically -Her echo from this stay showed 25-30% EF with moderate to severe mitral valve regurgitation and mild pulmonary HTN -She ran out of her Lasix 1 week ago and presented with shortness of breath and cough. -medications were adjusted as detailed below -pt sent home with life vest and is going to f/u with cardiology (2) Cough: Code(s): R05 - Cough Status: Acute Assessment and Plan: Suspect related to above. CXR negative. COVID-19 negative -could also be due to atelectasis as she would cough with deep inspiration. I recommended deep breathing exercises. This has improved (3) Accelerated essential hypertension: Code(s): I10 - Essential (primary) hypertension Status: Chronic Assessment and Plan: Last blood pressure 118/74 -continue losartan, carvedilol and lasix. (4) Nonischemic cardiomyopathy: Code(s): I42.8 - Other cardiomyopathies Status: Chronic Assessment and Plan: as above (5) Type 2 diabetes mellitus: Qualifiers: Diabetes mellitus terminal operator insulin use: without correction use Diabetes mellitus complication status: without complication Qualified Code(s): E11.9 - Type 2 diabetes mellitus without complications Code(s): E11.9 - Type 2 diabetes mellitus without complications Status: Chronic Assessment and Plan: She reports is diet-controlled without medications. -A1c 6.8 -follow up with PCP DS: Summary Hospital Course Hospital Course: Patient is a 55-year-old female with a history of CHF who presented emergency room for shortness of breath. Vitals in the ER were temperature 36.3? doses pulse 82 respiratory rate 17 blood pressure 170/100, pulse ox 97 on room air. CBC within normal limits. BMP relatively normal. Chest x-ray showed cardiomegaly with no active pulmonary disease. EKG showed normal rate sinus rhythm. Patient was admitted to the hospitalist service and started on Lasix therapy. Cardiology was consulted and adjusted her medications as stated below. The patient remained hospitalized for couple days on IV Lasix therapy which improved her symptoms. PE seemed less likely (wells 0). The day of discharge she had minimal shortness of breath with exertion and was feeling much better. Her echo is detailed below. She is to [facility] with [facility] and she was discharged with a life vest. She was educated about the worrisome signs and symptoms come back to emergency room for and was discharged stable condition. Echo: 1. Complete two-dimensional, color flow and Doppler transthoracic echocardiogram is performed. 2. Strain analysis performed. 3. Left ventricular chamber dimension is severely enlarged. 4. Left ventricular systolic function is severely reduced, estimated at 25-30%. 5. There is mildly increased left ventricular wall thickness. 6. The left ventricular diastolic function is grade II diastolic dysfunction. 7. Global longitudinal strain is abnormal at -7 %. 8. Left atrial chamber dimension is moderately enlarged. 9. There is moderate aortic valve regurgitation. 10. There is moderate to severe mitral valve regurgitation. 11. There is mild tricuspid valve regurgitation. 12. Mild pulmonary hypertension, estimated
[2021-03-27 14:00] VITALS: BP 118/74; PULSE 70; RESP 20; TEMP 36.4; O2SAT 94
== END 2021-03-27 17:47 | disposition home or self-care (01) | DRG 194 ==
LOC: ANHED 19:42 → ANH3MEDSUR 03-25 07:33
PROVIDERS: Emergency Medicine; Internal Medicine; Internal Medicine Cardiovascular Disease; Physician Assistant; Admitting Provider Family Medicine; Emergency Provider Emergency Medicine; Visit Provider Internal Medicine
DX: I11.0 Hypertensive heart disease with heart failure (principal); I50.43 Acute on chronic combined systolic (congestive) and diastolic (congestive) heart failure; Z20.822 Contact with and (suspected) exposure to COVID-19; J98.11 Atelectasis; I42.8 Other cardiomyopathies; E11.9 Type 2 diabetes mellitus without complications; E78.5 Hyperlipidemia, unspecified; Z86.16 Personal history of COVID-19
CPT/HCPCS: 36415; 71046; 80048; 80076; 82948; 83036; 83735; 83880; 84132; 84484; 85025; 85027; 85610; 85730; 93005; 93306; 96372; 96374; 96375; 96376; 99285; A9270; C9803; G0378; G0379; J1650; J1940; U0003; U0005

== ENCOUNTER 2021-04-02 12:13 | Outpatient (RCR) | payer OTHER, SELFPAY ==
[2021-04-02 13:15] LABS: Anion Gap 12 mmol/L (8-16); Blood Urea Nitrogen 15 mg/dL (7-17); Calcium 9.6 mg/dL (8.4-10.2); Carbon Dioxide 25 mmol/L (22-30); Chloride 106 mmol/L (98-107); Estimated Glomerular Filt Rate > 60; Glucose 162 mg/dL (65-105); Potassium 4.1 mmol/L (3.4-5.0); Sodium 143 mmol/L (137-145)
== END 2021-07-01 23:59 | disposition home or self-care (01) ==
LOC: ANHLAB 12:13
PROVIDERS: Visit Provider Nurse Practitioner Adult Health
DX: I42.0 Dilated cardiomyopathy (principal)
CPT/HCPCS: 36415; 80048

== ENCOUNTER 2021-04-11 13:02 | Outpatient (CLI) | payer OTHER, SELFPAY ==
[2021-04-11 14:04] LABS: Anion Gap 11 mmol/L (8-16); Blood Urea Nitrogen 19 mg/dL (7-17); Calcium 9.5 mg/dL (8.4-10.2); Carbon Dioxide 25 mmol/L (22-30); Chloride 105 mmol/L (98-107); Estimated Glomerular Filt Rate > 60; Glucose 185 mg/dL (65-105); Potassium 3.9 mmol/L (3.4-5.0); Sodium 141 mmol/L (137-145)
== END 2021-04-11 13:03 | disposition home or self-care (01) ==
LOC: ANHLAB 13:04
PROVIDERS: Visit Provider Nurse Practitioner Adult Health
DX: I42.0 Dilated cardiomyopathy (principal)
CPT/HCPCS: 36415; 80048

== ENCOUNTER 2021-04-29 14:42 | Emergency (ER) | payer OTHER, SELFPAY ==
--- NOTE | ~2021-04-29 | CT_ITS ---
EXAMINATION: CT lumbar spine wo con DATE: 04/29/2021 20:25 INDICATION: Low back pain TECHNIQUE: Computed tomography (CT) of the lumbar spine was performed without intravenous contrast. T he dose-length product (DLP) was 1130.78 mGy-cm. Iterative reconstruction was used. COMPARISON: None FINDINGS: There are 2 mm of retrolisthesis of L2 on L3 and L3 on L4. The vertebral body heights are m aintained. There is no fracture. There is severe loss of intervertebral disc space height at L2-3 and L3-4 there is moderate loss of intervertebral disc space height at L5-S1. There is moderate to sever e facet osteoarthritis at L4-5 and L5-S1. There is moderate central canal stenosis at L3-4. IMPRESSION: 1. Severe lumbar spondylosis without acute findings. Reviewed, dictated and finalized at location A.
[2021-04-29 15:26] VITALS: BP 157/81; PULSE 71; RESP 18; TEMP 36.3; O2SAT 99
--- NOTE | 2021-04-29 19:44 | ED.BACK ---
HPI - Back Pain/Injury General Chief Complaint: Back Pain/Injury Stated Complaint: fall/low back pain Time Seen by Provider: 04/29/21 19:28 Source: patient Mode of arrival: ambulatory Limitations: no limitations History of Present Illness HPI Narrative: This is a 55 year old female that presents to the ER for low back pain after a fall 4 days ago. Reports she slipped and fell off of her deck. Reports falling about 3 feet and landing onto her back on the grass. Reports since she has had low back pain. Worse with movement and relieved with rest. She has been taking OTC pain medication with little relief. Does report hitting her head. Denies loss of consciousness. Denies vision changes, vomiting, numbness, or weakness. Related Data Home Medications Medication Instructions Recorded Confirmed gabapentin [Neurontin] 300 mg PO HS PRN 03/25/21 03/25/21 tramadol 25 mg PO HS PRN 03/25/21 03/25/21 albuterol sulfate INHALATION 04/29/21 sacubitril-valsartan [Entresto] 1 tablet PO BID 04/29/21 Allergies Allergy/AdvReac Type Severity Reaction Status Date / Time No Known Allergies Allergy Verified 04/29/21 20:06 Review of Systems Review of Systems: Narrative: CONSTITUTIONAL: Denies fever EYES: Denies visual changes GASTROINTESTINAL: Denies vomiting MUSCULOSKELETAL: Reports back pain, and myalgia. NEUROLOGIC: Denies headache, numbness, or weakness. All systems reviewed & are unremarkable except as noted in HPI and below PMFSH Past Medical History Medical History (Updated 04/29/21 @ 20:58 by Zenobia Hogan PA-C) History of CHF (congestive heart failure) History of diabetes mellitus History of hyperlipidemia Type 2 diabetes mellitus Family History Family History Father Congestive heart failure Mother Cardiac abnormality Social History Social History Smoking status: Never smoker Alcohol intake: former Substance use: never Gender identity (if verbalized by the patient): Female Spiritual care concerns: No Exam Narrative: Exam Narrative: GENERAL: Well-appearing, well-nourished, and in no acute distress. HEAD: Normocephalic, atraumatic. EYES: PERRLA and EOMI. ENT: Nares clear, no rhinorrhea or epistaxis. Mucous membranes moist. Oropharynx without tonsillar hypertrophy exudate or other lesions. Bilateral TMs pearly bill non-bulging NECK: Supple. No adenopathy or masses. No midline cervical spine tenderness CHEST: Clear to auscultation. No respiratory distress. No wheezes rales or rhonchi HEART: Regular rate and rhythm. No murmur heard. Normal peripheral pulses. BACK: No midline thoracic spine tenderness. Tender to palpation of midline lumbar spine EXTREMITIES: Normal range of motion. No edema. Strength equal in bilateral upper and lower extremities (5/5) SKIN: Warm, dry, no rash. NEURO: No focal deficits. Alert and oriented x3. Cranial nerves II through XII grossly PSYCH: Normal mood and affect Course Vital Signs Vital signs: Vital Signs Temperature 97.3 F L 04/29/21 15:26 Pulse Rate 71 04/29/21 15:26 Respiratory Rate 18 04/29/21 15:26 Blood Pressure 157/81 H 04/29/21 15:26 Pulse Oximetry 99 04/29/21 15:26 Temperature 97.3 F L 04/29/21 15:26 Pulse Rate 71 04/29/21 15:26 Respiratory Rate 18 04/29/21 15:26 Blood Pressure 157/81 H 04/29/21 15:26 Pulse Oximetry 99 04/29/21 15:26 MDM - Back Pain/Injury MDM Narrative Medical decision making narrative: Patient presents to the ER for a fall 4 days ago with low back pain. Patient is neurologically intact. CT scan of the lumbar spine shows severe lumbar spondylosis without acute findings. Patient updated on case findings. Instructed to rest, ice and take [id number] pain medication as needed. She will be given muscle relaxer as needed for pain. She is to follow-up with her primary care doctor. She was given
[2021-04-29] MEDS: HYDROcodone/acetaminophen (*CRX) 5-325 MG TABLET 1 TAB PO (20:02)
== END 2021-04-29 21:18 | disposition home or self-care (01) ==
PROVIDERS: Emergency Provider Emergency Medicine; PCP Nurse Practitioner Family
DX: S39.92XA Unspecified injury of lower back, initial encounter (principal); I50.9 Heart failure, unspecified; E11.9 Type 2 diabetes mellitus without complications; E78.5 Hyperlipidemia, unspecified; Z79.82 Long term (current) use of aspirin; M47.816 Spondylosis without myelopathy or radiculopathy, lumbar region; W13.8XXA Fall from, out of or through other building or structure, initial encounter
CPT/HCPCS: 72131; 81025; 99284; A9270

== ENCOUNTER 2025-04-05 14:53 | Outpatient (CLI) | payer OTHER, SELFPAY ==
--- NOTE | ~2025-04-05 | CT_ITS ---
EXAMINATION: CTA chest DATE: 04/05/2025 15:40 INDICATION: Aortic root enlargement TECHNIQUE: Computed tomographic angiography (CTA) of the chest was performed without and with 100 mL Omnipaque-350 intravenous contrast. Volume-rendered 3D-reconstructions of the aorta and large arterie s were constructed by the technologist on a separate workstation. Automated exposure control and iter ative reconstruction technique were employed. The dose-length product was 735.54 mGy-cm. COMPARISON: None. FINDINGS: Fusiform aneurysm of the ascending thoracic aorta which measures 3.5 x 3.6 cm at the annulus increasi ng to 4.5 x 4.5 cm in the mid descending aorta and tapering to 3.5 x 3.4 cm immediately proximal to t he level of the takeoff of the innominate artery. The more distal aortic arch and descending thoracic aorta are normal in caliber. Although not performed as a dedicated pulmonary embolism protocol there is good contrast opacification of the pulmonary arteries demonstrating no pulmonary embolism. Visual ized portion of lungs are clear with no suspicious pulmonary nodules, pneumonia, pulmonary edema or p leural effusion. Heart size is normal. No pericardial effusion. No pathologically enlarged thoracic l ymphadenopathy. Cholecystectomy clips at the gallbladder fossa. Moderate thoracic spondylosis. IMPRESSION: 1. Fusiform ascending thoracic aortic aneurysm measuring up to 4.5 cm. Reviewed, dictated and finalized at location A.
--- OUTSIDE RECORDS SUMMARY | 2025-04-05 14:57 | XMS_ITS | Encounter Summary ---
Author Organization [facility] Address [address] [place] [address] Care Team Providers Care Numerical Control Programmer Name Role Phone Augusto Hanna MD Primary Care Provider [phone] Encounter Details Date Type Department Care Team (Late st Contact Info) Description 08/25/2005 Outpatient Historical [facility] Internal Medicine [address] [address] Augusto Hanna MD [address] [place] [phone] Social History Tobacco Use Types Packs/Day Years Used Date Smoking Tobacco: Never Assessed Comments Unknown Sex and Gender Information Value Date Recorded Sex Assigned at Not on file Legal Sex Female 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 Gender Identity Not on file Sexual Orientation Not on file documented as of this encounter Last Filed Vital Signs Vital Sign Reading Time Taken Comments Blood Pressure 140/70 08/25/2005 4:15 PM HOOP PUNCH OPERATOR HELPER Pulse - - Temperature 36.9 C (98.4 F) 08/25/2005 4:15 PM HOOP PUNCH OPERATOR HELPER Respiratory Rate - - Oxygen Saturation - - Inhaled Oxygen Concentration - - Weight 116.1 kg (256 lb) 08/25/2005 4:15 PM HOOP PUNCH OPERATOR HELPER Height - - Body Mass Index 43.26 10/17/2003 3:45 PM HOOP PUNCH OPERATOR HELPER documented in this encounter Plan of Treatment Not on file documented as of this encounter Visit Diagnoses Not on filedocumented in this encounter Care Teams Numerical Control Programmer Relationship Specialty Start Date End Date Augusto Hanna MD PCP - General 06/07/08 01/23/22 documented as of this encounter
--- OUTSIDE RECORDS SUMMARY | 2025-04-05 14:57 | XMS_ITS | Encounter Summary ---
Author Organization [facility] Address [address] [place] [address] Care Team Providers Care Gold Assayer Name Role Phone Augusto Hanna MD Primary Care Provider [phone] Encounter Details Date Type Department Care Team (Late st Contact Info) Description 04/26/2007 Orders Only [facility] Internal Medicine [address] [address] Joanna Cortez MD NO ADDRESS ON FILE Social History Tobacco Use Types Packs/Day Years Used Date Smoking Tobacco: Never Assessed Comments Unknown Sex and Gender Information Value Date Recorded Sex Assigned at Not on file Legal Sex Female 3:39 AM PROOFER BLACK AND WHITE Gender Identity Not on file Sexual Orientation Not on file documented as of this encounter Progress Notes * Joanna Cortez MD - 02/23/2008 11:36 AM CDT TIME:04:04 pm PATIENT`S HOME PHONE: PATIENT`S WORK PHONE: PATIENT`S INSURANCE: [facility] [employer] WHO TOOK THE CALL: Petty Ramirez L GENERAL INFORMATION WHO CALLED: Pharmacy called. PHARMACY NUMBER: [phone] SECTION 1: REQUESTED ACTION pamela 04/26/07 at 04:15 pm: MEDICATION REQUEST: AK pt MEDICATION REQUEST: Patient requests a refill. gen Wellbutrin SR 150 mg. bid #60 LF 02/23/07(on d/c list) and Delaney 180 mg. od #30 LF 02/23/07. DOCTOR`S RESPONSE: pino 04/26/07 at 05:09 pm MEDICATIONS: DELANEY ORAL TABLET 180 MG, 1 Every Day, 30 Dispensed, 5 Fills, status: CONTINUED, 04/26/2007. why is she refilling med on d/c'd list? FINAL ACTION: anant 04/26/07 at 05:[address] ARNDT per Pt never been off Wellbutrin SR 150 so he said to refill x1mth Electronically Signed by: Maryann Lyman on Thursday, April 26, 2007 documented in this encounter Plan of Treatment Not on file documented as of this encounter Visit Diagnoses Not on filedocumented in this encounter Care Teams Gold Assayer Relationship Specialty Start Date End Date Augusto Hanna MD PCP - General 06/07/08 01/23/22 documented as of this encounter
--- OUTSIDE RECORDS SUMMARY | 2025-04-05 14:57 | XMS_ITS | Encounter Summary ---
Author Organization [facility] Address 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
--- OUTSIDE RECORDS SUMMARY | 2025-04-05 14:57 | XMS_ITS | Encounter Summary ---
Author Organization [facility] Address [address] [place] [address] Care Team Providers Care Supervisor Labor Gang Name Role Phone Augusto Hanna MD Primary Care Provider [phone] Encounter Details Date Type Department Care Team (Late st Contact Info) Description 06/01/2007 Orders Only [facility] Internal Medicine [address] [address] Augusto Hanna MD [address] [place] [phone] Social History Tobacco Use Types Packs/Day Years Used Date Smoking Tobacco: Never Assessed Comments Unknown Sex and Gender Information Value Date Recorded Sex Assigned at Not on file Legal Sex Female 3:39 AM PRODUCTION CONTROL ANALYST Gender Identity Not on file Sexual Orientation Not on file documented as of this encounter Progress Notes * Augusto Hanna MD - 02/22/2008 3:12 PM CDT TIME:10:06 am PATIENT`S HOME PHONE: PATIENT`S WORK PHONE: PATIENT`S INSURANCE: [facility] [employer] WHO TOOK THE CALL: Maryann Lyman C GENERAL INFORMATION WHO CALLED: Pharmacy called. [phone] SECTION 1: REQUESTED ACTION anant 06/01/07 at 10:06 am: MEDICATION REQUEST: Patient requests a refill. Wellbutrin SR 150mg #60 L/R 04/26 DOCTOR`S RESPONSE: dinah 06/01/07 at 10:18 am MEDICATIONS: Call in to Pharmacy WELLBUTRIN SR ORAL TABLET 12 HR 150 MG, 1 Two Times A Day, 180 Dispensed, 1 Fills, status: CONTINUED, 06/01/2007. FINAL ACTION: pamela 06/01/07 at 03:08 pm Called pharmacy at 06/01/07 at 03:09 pm. Electronically Signed by: Petty Ramirez on Friday, June 01, 2007 documented in this encounter Plan of Treatment Not on file documented as of this encounter Visit Diagnoses Not on filedocumented in this encounter Care Teams Supervisor Labor Gang Relationship Specialty Start Date End Date Augusto Hanna MD PCP - General 06/07/08 01/23/22 documented as of this encounter
--- OUTSIDE RECORDS SUMMARY | 2025-04-05 14:57 | XMS_ITS | Encounter Summary ---
Author Organization [facility] Address 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
--- OUTSIDE RECORDS SUMMARY | 2025-04-05 14:57 | XMS_ITS | Encounter Summary ---
Author Organization [facility] Address 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
--- OUTSIDE RECORDS SUMMARY | 2025-04-05 14:57 | XMS_ITS | Encounter Summary ---
Author Organization [facility] Address [address] [place] [address] Care Team Providers Care Supervisor Fabrication And Assembly Name Role Phone Augusto Hanna MD Primary Care Provider [phone] Encounter Details Date Type Department Care Team (Late st Contact Info) Description 12/03/2007 Outpatient [facility] Internal Medicine [address] [address] Augusto Hanna MD [address] [place] [phone] Social History Tobacco Use Types Packs/Day Years Used Date Smoking Tobacco: Never Assessed Comments Unknown Sex and Gender Information Value Date Recorded Sex Assigned at Not on file Legal Sex Female 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
--- OUTSIDE RECORDS SUMMARY | 2025-04-05 14:57 | XMS_ITS | Encounter Summary ---
Author Organization [facility] Address [address] [place] [address] Care Team Providers Care Banquet Manager Name Role Phone Augusto Hanna MD Primary Care Provider [phone] Encounter Details Date Type Department Care Team (Late st Contact Info) Description 01/25/2007 Orders Only [facility] Internal Medicine [address] [address] Augusto Hanna MD [address] [place] [phone] Social History Tobacco Use Types Packs/Day Years Used Date Smoking Tobacco: Never Assessed Comments Unknown Sex and Gender Information Value Date Recorded Sex Assigned at Not on file Legal Sex Female 3:39 AM DIRECTOR SUPPLY Gender Identity Not on file Sexual Orientation Not on file documented as of this encounter Progress Notes * Augusto Hanna MD - 02/24/2008 4:44 PM CDT WHO TOOK THE CALL: Augusto Hanna M TIME:05:02 pm fax reviewed bp too high restart carlos a nix 01/25/07 05:03 pm ADDITIONAL TEST REQUESTS/ORDERS: . 401.9-HYPERTENSION, UNSPECIFIED MEDICATIONS: DIOVAN ORAL TABLET 80 MG, 1 Every Day, 90 Dispensed, 1 Fills, 90 Duration/Days Supply, status: NEW PRESCRIPTION, 01/25/2007. ukendr 01/25/07 05:38 pm STAFF FOLLOW UP: . spoke with pt. given above results and directions phoned script to pharmacy. /goyo Electronically Signed by: Urmila Hoskins on Thursday, January 25, 2007 documented in this encounter Plan of Treatment Not on file documented as of this encounter Visit Diagnoses Not on filedocumented in this encounter Care Teams Banquet Manager Relationship Specialty Start Date End Date Augusto Hanna MD PCP - General 06/07/08 01/23/22 documented as of this encounter
--- OUTSIDE RECORDS SUMMARY | 2025-04-05 14:57 | XMS_ITS | Encounter Summary ---
Author Organization [facility] Address [address] [place] [address] Care Team Providers Care Stock Broker Supervisor Name Role Phone Augusto Hanna MD Primary Care Provider [phone] Encounter Details Date Type Department Care Team (Late st Contact Info) Description 07/16/2006 Outpatient [facility] Internal Medicine [address] [address] Augusto Hanna MD [address] [place] [phone] Social History Tobacco Use Types Packs/Day Years Used Date Smoking Tobacco: Never Assessed Comments Unknown Sex and Gender Information Value Date Recorded Sex Assigned at Not on file Legal Sex Female 3:39 AM 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 Gender Identity Not on file Sexual Orientation Not on file documented as of this encounter Last Filed Vital Signs Vital Sign Reading Time Taken Comments Blood Pressure 126/80 07/16/2006 3:00 PM CDT Pulse - - Temperature - - Respiratory Rate - - Oxygen Saturation - - Inhaled Oxygen Concentration - - Weight 117.5 kg (259 lb) 07/16/2006 3:00 PM CDT Height - - Body Mass Index 43.77 10/17/2003 3:45 PM HAND CANDY DIPPER documented in this encounter Plan of Treatment Not on file documented as of this encounter Visit Diagnoses Not on filedocumented in this encounter Care Teams Stock Broker Supervisor Relationship Specialty Start Date End Date Augusto Hanna MD PCP - General 06/07/08 01/23/22 documented as of this encounter
--- OUTSIDE RECORDS SUMMARY | 2025-04-05 14:57 | XMS_ITS | Encounter Summary ---
Author Organization [facility] Address [address] [place] [address] Care Team Providers Care Dramatic Art Teacher Name Role Phone Augusto Hanna MD Primary Care Provider [phone] Encounter Details Date Type Department Care Team (Late st Contact Info) Description 02/01/2007 Orders Only [facility] Internal Medicine [address] [address] Augusto Hanna MD [address] [place] [phone] Social History Tobacco Use Types Packs/Day Years Used Date Smoking Tobacco: Never Assessed Comments Unknown Sex and Gender Information Value Date Recorded Sex Assigned at Not on file Legal Sex Female 3:39 AM BACK LINE COOK Gender Identity Not on file Sexual Orientation Not on file documented as of this encounter Progress Notes * Augusto Hanna MD - 02/24/2008 5:57 PM CDT TIME:03:21 pm PATIENT`S HOME PHONE: PATIENT`S WORK PHONE: PATIENT`S INSURANCE: [facility] HEALTH PLANS WHO TOOK THE CALL: Petty Ramirez L GENERAL INFORMATION ALTERNATIVE PHONE NUMBER: [phone] WHO CALLED: Patient called. PROBLEMS: Throat is swollen. Med gets stuck in throat in the morning. SORE THROAT: Patient complains of sore throat. The sore throat began approximately 5 days ago. Therapies tried include Tylenol. Had 3 wks ago, but went away when she was taking Amoxicillin for tooth extraction. When she finished the antibiotic, the pain came back. Last time she was in the office you told her you didn't have a long enough instrument to see that far down in her throat. -Was to call w/BP readings: 01/29/07 104/61 01/30/07 107/64 01/31/07 120/69 02/01/07 117/67 SECTION 1: REQUESTED ACTION licasl 02/01/07 at 03:26 pm: Pt wants to know if she can have a strep culture doneat [facility] by her office. DOCTOR`S RESPONSE: dinah 02/01/07 at 03:59 pm not likely to have pos culture at this pt after abx,can re rx with stronger abx--if persists will refer to ent--bp ok MEDICATIONS: Call in to Pharmacy CEFUROXIME AXETIL ORAL TABLET 250 MG, 1 Two Times A Day, 20 Dispensed, status: NEW PRESCRIPTION, 02/01/2007. SPECIALTY REFERRAL: ENT (OTOLARYNGOLOGY) Dr. Félix Powers ph: [phone].if sx persist 02/01/07 Spoke with pt. given above results and directions. phoned script to pharmacy. /goyo Electronically Signed by: Urmila Hoskins on Thursday, February 01, 2007 documented in this encounter Plan of Treatment Not on file documented as of this encounter Visit Diagnoses Not on filedocumented in this encounter Care Teams Dramatic Art Teacher Relationship Specialty Start Date End Date Augusto Hanna MD PCP - General 06/07/08 01/23/22 documented as of this encounter
--- OUTSIDE RECORDS SUMMARY | 2025-04-05 14:57 | XMS_ITS | Encounter Summary ---
Author Organization [facility] Address [address] [place] [address] Care Team Providers Care Janitor Supervisor Name Role Phone Augusto Hanna MD Primary Care Provider [phone] Encounter Details Date Type Department Care Team (Late st Contact Info) Description 10/09/2005 Outpatient [facility] Internal Medicine [address] [address] Augusto Hanna MD [address] [place] [phone] Social History Tobacco Use Types Packs/Day Years Used Date Smoking Tobacco: Never Assessed Comments Unknown Sex and Gender Information Value Date Recorded Sex Assigned at Not on file Legal Sex Female 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
--- OUTSIDE RECORDS SUMMARY | 2025-04-05 14:57 | XMS_ITS | Clinical Summary ---
Author Organization [address] Address [address] [place] [id number] Care Team Providers Care Blanket Binder Name Role Phone BeatrizLuz Maria PT Unavailable Katrina Shorty Yancey MD Primary Care Provider [phone] Allergies Active Allergy Reactions Criticality Noted Date Comments Canagliflozin Rash Medium 03/29/2014 Dulaglutide Diarrhea,Nausea And Vomiting Low 2015 Metformin Diarrhea,Nausea And Vomiting Low 013 Sitagliptin Diarrhea,Nausea And Vomiting Low 2012 Medications albuterol HFA (PROVENTIL HFA,VENTOLIN HFA,PROAIR HFA) 90 mcg/actuation inhalerIndication s:Bronchitis Inhale 2 puffs every 6 (six) hours as needed for wheezing or shortness of breath 1 Inhaler 3 04/04/20 21 Active acetaminophen (TYLENOL) 500 mg tablet Take 1 tablet (500 mg total) by mouth every 6 (six) hours as needed for pain Active biotin 10 mg tablet Active diphenhydrAMINE (BENADRYL) 25 mg capsule Take 1 tablet/capsu le (25 mg total) by mouth every 6 (six) hours as needed for itching Active aspirin 81 mg chewable tabletIndications :Mild coronary artery disease Take 1 tablet (81 mg total) by mouth daily 30 tablet 11 01/30/[address] (CYMBALTA) 60 mg capsule TAKE 1 CAPSULE BY MOUTH AT BEDTIME AFTER FINISHED WITH 30MG DOSE 04/11/20 22 Active traMADoL (ULTRAM) 50 mg tablet TAKE 1 TABLET BY MOUTH 1 TO 2 TIMES DAILY NEEDED FOR SEVERE PAIN 02/14/20 23 Active carvediloL (COREG) 6.25 mg tabletIndications :Nonischemic cardiomyopathy (HCC) TAKE 1 TABLET BY MOUTH EVERY 12 HOURS 180 tablet 3 08/06/20 23 Active Rybelsus 14 mg tablet TAKE 1 TABLET BY MOUTH IN THE MORNING BEFORE BREAKFAST 90 tablet 1 10/27/19 24 Active lidocaine (LIDODERM) 5 % Place 1 patch on the skin daily for 14 days Remove & discard patch within 12 hours or as directed by . 14 patch 02/23/20 24 026 Active HYDROcodone-aceta minophen (NORCO) 5-325 mg per tabletIndications :Pain Take 1 tablet by mouth every 6 (six) hours as needed for pain for up to 8 doses 8 tablet 02/23/20 24 Active atorvastatin (LIPITOR) 20 mg tabletIndications :Coronary artery disease involving [place] coronary artery of [place] heart without angina pectoris Take 1 tablet (20 mg total) by mouth daily 90 tablet 3 04/01/20 24 Active meclizine (ANTIVERT) 25 mg tablet Take 1 tablet (25 mg total) by mouth as needed 08/15/20 24 Active Jardiance 25 mg tablet Take 1 tablet by mouth once daily 30 tablet 09/23/20 24 Active buPROPion SR (WELLBUTRIN SR) 200 mg 12 hr tablet Take 1 tablet by mouth twice daily 180 tablet 10/03/20 24 Active spironolactone (ALDACTONE) 25 mg tabletIndications :Chronic combined systolic and diastolic CHF (congestive heart failure) (HCC),Non-ischemi c cardiomyopathy (HCC) Take 1 tablet by mouth once daily 90 tablet 3 10/11/19 25 Active sacubitriL-valsar wallace (Entresto) 49-51 mg tabletIndications :Nonischemic cardiomyopathy (HCC) Take 1 tablet by mouth twice daily 180 tablet 1 11/29/19 25 Active furosemide (LASIX) 40 mg tablet Take 1 tablet by mouth nightly 30 tablet 5 02/23/20 25 Active gabapentin (NEURONTIN) 300 mg capsule TAKE 1 CAPSULE BY MOUTH THREE TIMES DAILY 270 capsule 03/20/20 25 Active gabapentin (NEURONTIN) 300 mg capsule TAKE 1 CAPSULE BY MOUTH THREE TIMES DAILY 270 capsule 03/22 025 Discontinued Active Problems Problem Noted Date Diagnosed Date Annual physical exam 05/11/2024 Assessment & Plan (05/11/2024 11:49 AM CDT): Discussed lifestyle modifications, diet and exercise. Routine blood work ordered/reviewed today. Yearly vision and dental examinations. Anxiety and depression 06/30/2023 Assessment & Plan (08/25/2023 1:17 PM LABORATORY MACHINIST): Not at goal at thsi time Will increase wellbutrin to 200 mg bid Assessment & Plan (06/30/2023 3:04 PM CDT): Not at goal at this time Continue duloxetine Worse since the passing of a friend recently Start wellbutrin 150 mg bid Diabetic polyneuropathy asso ciated with type 2 diabetes mellitus 01/01/2023 Assessment & Plan (11/14/2024 12:02 PM LABORATORY MACHINIST): Stable - doing well with gabapentin 300 mg tid Continue current regimen Contrl sugars well Discussed other options Assessment & Plan (01/01/2023 11:52 AM CDT): Stable - doing well with gabapentin 300 mg tid Continue current regimen Type 2 diabetes mellitus wit hout complication, without long-term current use of insulin 07/02/2022 Assessment & Plan (11/14/2024 11:50 AM LABORATORY MACHINIST): Lab Results Component Value Date HGBA1C 6.7 05/11/2024 HGBA1C 6.0 (H) 06/17/2023 HGBA1C 7.6 01/01/2023 Lab Results Component Value Date LDLCALC 93 05/11/2024 CREATININE 0.63 05/11/2024 At goal Cotn[place]ue jardiance 25 mg every day, continue rybelsus 14 mg every day Assessment & Plan (05/11/2024 11:57 AM CDT): Lab Results Component Value Date HGBA1C 6.7 05/11/2024 HGBA1C 6.0 (H) 06/17/2023 HGBA1C 7.6 01/01/2023 Lab Results Component Value Date LDLCALC 39 06/17/2023 CREATININE 0.9 01/20/2024 Worsening but still remains at goal Cotninue jardiance 25 mg every day, continue rybelsus 14 mg every day Assessment & Plan (01/01/2023 11:29 AM CDT): As above Assessment & Plan (07/02/2022 3:00 PM CDT): Lab Results Component Value Date HGBA1C 9.4 (H) 12/27/2021 HGBA1C 10.6 (H) 01/26/2016 Lab Results Component Value Date LDLCALC 45 12/27/2021 CREATININE 0.58 (L) 12/27/2021 Not at goal - recheck a1c today Continue jardiance, statin. likelty need to add another agent History of colon polyps 05/28/2022 Overview (05/28/2022): Added automatically from request for surgery [id number] Class 1 obesity due to exces s calories with serious comorbidity and body mass index (BMI) of 32.0 to 32.9 in adult 12/26/2021 Assessment & Plan (11/14/2024 12:04 PM LABORATORY MACHINIST): Wt Readings from Last 3 Encounters: 11/14/24 90.4 kg (199 lb 6.4 oz) 09/19/24 91.2 kg (201 lb) 05/11/24 87.5 kg (192 lb 14.4 oz) BMI Readings from Last 3 Encounters: 11/14/24 34.21 kg/m 09/19/24 34.50 kg/m 05/11/24 33.09 kg/m Not at goal of bmi <30 Continue diet and exercise BMI Follow-up includes: nutrition counseling and exercise counseling. Assessment & Plan (05/11/2024 11:50 AM CDT): Wt Readings from Last 3 Encounters: 05/11/24 87.5 kg (192 lb 14.4 oz) 04/01/24 88.5 kg (195 lb) 02/23/24 83.9 kg (185 lb) BMI Readings from Last 3 Encounters: 05/11/24 33.09 kg/m 04/01/24 33.47 kg/m 02/23/24 31.76 kg/m Not at goal of bmi <30 Continue diet and exercise BMI Follow-up includes: nutrition counseling and exercise counseling. Assessment & Plan (06/30/2023 2:47 PM CDT): Wt Readings from Last 3 Encounters: 06/30/23 85.3 kg (188 lb) 04/21/23 84.4 kg (186 lb) 01/20/23 90.8 kg (200 lb 3.2 oz) BMI Readings from Last 3 Encounters: 06/30/23 32.25 kg/m 04/21/23 31.93 kg/m 01/20/23 34.36 kg/m Not at goal of bmi <30 Continue diet and exercise BMI Follow-up includes: nutrition counseling and exercise counseling. Assessment & Plan (01/01/2023 11:51 AM CDT): Wt Readings from Last 3 Encounters: 01/01/23 93.4 kg (206 lb) 07/15/22 95.1 kg (209 lb 9.6 oz) 07/11/22 94.3 kg (208 lb) BMI Readings from Last 3 Encounters: 01/01/23 35.34 kg/m 07/15/22 35.98 kg/m 07/11/22 35.70 kg/m Not at goal of bmi <30 Continue diet and exercise BMI Follow-up includes: nutrition counseling and exercise counseling. Assessment & Plan (07/02/2022 2:49 PM CDT): BMI Follow-up includes: nutrition counseling and exercise counseling. Not at goal BMI Readings from Last 3 Encounters: 07/02/22 35.51 kg/m 06/11/22 35.34 kg/m 06/06/22 35.36 kg/m Assessment & Plan (03/28/2022 3:32 PM CDT): Healthy, low carbohydrate lifestyle and exercise for 150min/week recommended Assessment & Plan (12/26/2021 12:39 PM CDT): Healthy, low carbohydrate lifestyle and exercise for 150min/week recommended Major depressive disorder, recurrent, moderate 0 12/26/2021 Assessment & Plan (07/02/2022 3:01 PM CDT): Continue zoloft, pt has no concerns Assessment & Plan (03/28/2022 3:31 PM CDT): Condition has improved since increasing Sertraline to 100 mg daily. Will continue at this dose. Assessment & Plan (01/29/2022 1:10 PM CDT): Has improved with the Sertraline 50 mg daily but not at goal. Has stressors with mother she cares for and who was recently in hospital. Will increase to 100 mg daily and follow up in 6-8 weeks for normal HMV with labs. Assessment & Plan (12/26/2021 12:40 PM CDT): Patient's father in 2019 and she almost lost her mother about 10 days later. This has been trying for her, along with financial stressors at home. Discussed medications and counseling. She notes that she has been on antidepressant in the past but can't recall the name. Will start on Sertraline 50 mg daily, education on medication provided. Coronary artery disease invo lving [place] coronary artery of [place] heart without angina pectoris 04/02/2021 Assessment & Plan (12/26/2021 12:38 PM CDT): Patient is followed by Dr. Bar (cardio) As of now, condition is stable. EF has improved. Continues Coreg, Lasix, Entresto, and Spironolactone. Also, continues statin and aspirin Mitral valve insufficiency and aortic valve insu fficiency 04/02/2021 Sleep apnea 09/05/2020 Assessment & Plan (12/26/2021 12:34 PM CDT): Pt was diagnosed many years ago but never received CPAP. She continues to have daytime sleepiness, will have her see sleep medicine for further management. Gastroesophageal reflux disease without esophagi tis 10/02/2016 Chronic combined systolic an d diastolic CHF (congestive heart failure) 03/05/2016 Assessment & Plan (05/11/2024 11:51 AM CDT): Patient is followed by Dr. Bar (cardio) in [place] and [facility] As of now, condition is stable. EF has improved. Continues Coreg, Lasix 20 mg qd, Entresto, and Spironolactone 25 mg every day . \continue jardiance 25 mg qd Assessment & Plan (08/25/2023 1:19 PM LABORATORY MACHINIST): Patient is followed by Dr. Bar (cardio) in [place] and [facility] As of now, condition is stable. EF has improved. Continues Coreg, Lasix 20 mg qd, Entresto, and Spironolactone 25 mg every day . \continue jardiance 25 mg qd Assessment & Plan (06/30/2023 2:47 PM CDT): Patient is followed by Dr. Bar (cardio) As of now, condition is stable. EF has improved. Continues Coreg, Lasix 20 mg qd, Entresto, and Spironolactone 25 mg every day . \continue jardiance 25 mg qd Assessment & Plan (01/01/2023 11:28 AM CDT): Patient is followed by Dr. Bar (cardio) As of now, condition is stable. EF has improved. Continues Coreg, Lasix, Entresto, and Spironolactone. \continue jardiance 25 mg qd Assessment & Plan (07/02/2022 2:50 PM CDT): Patient is followed by Dr. Bar (cardio) As of now, condition is stable. EF has improved. Continues Coreg, Lasix, Entresto, and Spironolactone. Assessment & Plan (12/26/2021 12:31 PM CDT): Patient is followed by Dr. Bar (cardio) As of now, condition is stable. EF has improved. Continues Coreg, Lasix, Entresto, and Spironolactone. Non-ischemic cardiomyopathy 02/07/2016 Assessment & Plan (12/26/2021 12:35 PM CDT): Patient is followed by Dr. Bar (cardio) As of now, condition is stable. EF has improved. Continues Coreg, Lasix, Entresto, and Spironolactone. Hyperplastic colonic polyp 03/17/2012 Overview (09/05/2020): 02/2010 Assessment & Plan (12/26/2021 12:38 PM CDT): Pt has hx of polps and thinks her last colonoscopy was >5 years ago but <10 years ago. She notes that her brother from colon cancer in 2013. Will refer for Colonoscopy as she is likely in need. Family hx of colon cancer 03/17/2012 Overview (12/26/2021): Brother, dx age 52 Assessment & Plan (12/26/2021 12:39 PM CDT): Pt has hx of polps and thinks her last colonoscopy was >5 years ago but <10 years ago. She notes that her brother from colon cancer in 2013. Will refer for Colonoscopy as she is likely in need. Moderate persistent asthma with acute exacerbati on 12/03/2007 Assessment & Plan (12/26/2021 12:36 PM CDT): Asthma is stable, pt rarely uses prn inhaler. Please consider the albuterol as a rescue only medication. If needing the albuterol more than 2xwk, please contact office. Mixed hyperlipidemia 07/16/2006 Assessment & Plan (12/26/2021 12:37 PM CDT): Labs ordered Patient continues Atorvastatin, no side effects reported. Osteoarthritis 08/25/2005 Assessment & Plan (12/26/2021 12:35 PM CDT): Patient notes that she had lumbar imaging in the summer through [facility] that showed she had severe lumbar OA and 2 bulging discs. Pt experiences pain constantly, she has been on tramadol in the past. She currently takes otc Tylenol. Will get records from [place] and refer patient to pain management. Hypertension associated with diabetes 10/17/2003 Assessment & Plan (11/14/2024 12:05 PM LABORATORY MACHINIST): BP Readings from Last 3 Encounters: 11/14/24 106/58 09/19/24 116/60 05/11/24 110/70 Vitals BP 106/58 (BP Location: Left arm, Patient Position: Sitting) Pulse 79 Resp 16 Ht 162.6 cm (5' 4.02) Wt 90.4 kg (199 lb 6.4 oz) SpO2 97% BMI 34.21 kg/m Lab Results Component Value Date POTASSIUM 4.2 05/11/2024 At goal Continue aldactone 25 mg every day, lasxi 20 mg every day prn, entresto 49-51 mg every day Assessment & Plan (05/11/2024 11:51 AM CDT): BP Readings from Last 3 Encounters: 05/11/24 110/70 04/01/24 130/60 02/23/24 114/71 Vitals BP 110/70 (BP Location: Left arm, Patient Position: Sitting) Pulse 68 Resp 16 Ht 162.6 cm (5' 4.02) Wt 87.5 kg (192 lb 14.4 oz) SpO2 98% BMI 33.09 kg/m Lab Results Component Value Date POTASSIUM 4.2 06/17/2023 At goal Continue aldactone 25 mg every day, lasxi 20 mg every day prn, entresto 49-51 mg every day Assessment & Plan (08/25/2023 1:18 PM LABORATORY MACHINIST): BP Readings from Last 3 Encounters: 08/25/23 120/64 07/28/23 104/62 06/30/23 102/62 Vitals BP 120/64 (BP Location: Right arm, Patient Position: Sitting) Pulse 77 Resp 16 Ht 162.6 cm (5' 4.02) Wt 84.4 kg (186 lb 1.6 oz) SpO2 96% BMI 31.93 kg/m Lab Results Component Value Date POTASSIUM 4.2 06/17/2023 At goal Continue aldactone 25 mg every day, lasxi 40 mg every day, entresto 49-51 mg every day Assessment & Plan (06/30/2023 2:48 PM CDT): BP Readings from Last 3 Encounters: 04/21/23 112/68 01/20/23 114/62 01/01/23 112/62 Vitals Resp 18 Ht 162.6 cm (5' 4.02) Wt 85.3 kg (188 lb) BMI 32.25 kg/m Lab Results Component Value Date POTASSIUM 4.2 06/17/2023 At goal Continue aldactone 25 mg every day, lasxi 40 mg every day, entresto 49-51 mg every day Assessment & Plan (01/01/2023 11:28 AM CDT): BP Readings from Last 3 Encounters: 07/15/22 126/68 07/11/22 118/60 07/02/22 117/72 There were no vitals taken for this visit. Lab Results Component Value Date POTASSIUM 4.1 12/27/2021 At goal Continue aldactone 25 mg every day, lasxi 40 mg every day, entresto 49-51 mg every day Assessment & Plan (07/02/2022 2:50 PM CDT): At goal - continue current regimen Assessment & Plan (12/26/2021 12:32 PM CDT): BP is borderline in office today, for now will continue with current regimen and have pt monitor, follow up in 4 weeks. Resolved Problems Problem Noted Date Diagnosed Date Resolved Date Type 2 diabetes mellitus wit hout complication, without long-term current use of insulin 03/30/2012 05/11/2024 Assessment & Plan (08/25/2023 1:18 PM LABORATORY MACHINIST): Lab Results Component Value Date HGBA1C 6.0 (H) 06/17/2023 HGBA1C 7.6 01/01/2023 HGBA1C 8.2 07/02/2022 Lab Results Component Value Date LDLCALC 39 06/17/2023 CREATININE 0.75 06/17/2023 At goal = most recent A1c as above cotninue jhardiance 25 mg C/w jardiance 25 mg every day, rybelsus 14 mg every day , lipitor 20 gm every day Assessment & Plan (06/30/2023 2:49 PM CDT): Lab Results Component Value Date HGBA1C 6.0 (H) 06/17/2023 HGBA1C 7.6 01/01/2023 HGBA1C 8.2 07/02/2022 Lab Results Component Value Date LDLCALC 39 06/17/2023 CREATININE 0.75 06/17/2023 At goal = most recent A1c as above cotninue jhardiance 25 mg C/w jardiance 25 mg every day, rybelsus 14 mg every day , lipitor 20 gm every day Assessment & Plan (01/01/2023 11:50 AM CDT): Lab Results Component Value Date HGBA1C 8.2 07/02/2022 HGBA1C 9.4 (H) 12/27/2021 HGBA1C 10.6 (H) 01/26/2016 Lab Results Component Value Date LDLCALC 45 12/27/2021 CREATININE 0.58 (L) 12/27/2021 Repeat a1c still pending - will do today in office Neuropathy sx likely related to uncontrolled diabetes cotninue jhardiance 25 mg Pt stopped her cymbalta Doesn't seem she has been taking rybelsus either - but pt states she is Will increase rybelsus to 14 mg every day and see if we can achieve better glucose control Assessment & Plan (03/28/2022 3:30 PM CDT): Awaiting labs since adding in Jardiance. Assessment & Plan (12/26/2021 12:34 PM CDT): Last A1c that I can access was performed 10/2018 and was 7.3% Patient was on Jardiance in the past, I will likely restart this medication- given cardiac benefits. Will check labs first. Abnormal foot exam in office, pt experiences neuropathy. Will start Gabapentin. Eye exam appt made for patient. Encounters Date Type Department Care Team Description 04/04/2025 Telephone [facility] Cardiology [address] [place] [phone] Amy Bar MD 03/29/2025 Telephone [facility] Cardiology [address] [place] [phone] Amy Bar MD 03/27/2025 1:00 PM CDT Ancillary Procedure [facility] Cardiology [address] [place] [phone] Chronic combined systolic and diastolic CHF (congestive heart failure) (HCC); Coronary artery disease involving [place] coronary artery of [place] heart without angina pectoris; Mitral valve insufficiency and aortic valve insufficiency; Non-ischemic cardiomyopathy (HCC) 03/14/2025 Results Follow-Up [facility] Cardiology at [address] [place] [phone] Amy Bar MD XR Chest Pa Lateral 2 Views, Pro B-type natriuretic peptide, Transthoracic Echo (TTE) Complete W Doppler/CF 03/13/2025 12:16 PM CDT - 03/13/2025 11:59 PM CDT Hospital Encounter [address] [id number] Chronic combined systolic and diastolic CHF (congestive heart failure) (HCC) Discharge Disposition: Discharge to home or self care 03/13/2025 12:15 PM CDT Lab [facility] Outpatient Lab at [address] [phone] 03/13/2025 12:15 PM CDT Ancillary Procedure [facility] Imaging at [address] [phone] Cough, unspecified type 03/13/2025 11:00 AM CDT Office Visit [facility] Cardiology at [address] [place] [phone] Amy Bar MD Cough, unspecified type (Primary Dx); Chronic combined systolic and diastolic CHF (congestive heart failure) (HCC); Coronary artery disease involving [place] coronary artery of [place] heart without angina pectoris; Hypertension associated with diabetes (HCC); Mitral valve insufficiency and aortic valve insufficiency; Non-ischemic cardiomyopathy (HCC) 02/03/2025 Telephone [facility] Primary Care at [address] [place] [phone] Shorty Nicole MD Medical Question/Miscellaneous from Last 3 Months Immunizations Immunization Administration Dates Next Due Influenza, Quadrivalent, Carmen l Culture-based MDCK, Preservative Free, Antibiotic Free, Intramuscular 09/17/2021 Influenza, Quadrivalent, Spl it, Preservative Free, Intramuscular 06/17/2023,07/02/2022,07/03/2019 Influenza, Split 10/24/2013 Influenza, Trivalent, Preser vative Free, Intramuscular 06/22/2024 Influenza, Unspecified 09/10/2021 Pfizer SARS-CoV-2 Monovalent Vaccination (12+ Yrs) PURPLE 09/17/2021,12/26/2020,12/04/2020 Pneumococcal Conjugate Pcv20 01/01/2023 Pneumococcal Polysaccharide PPV23 02/10/2018,09/2010 Tdap 10/16/2009 Surgical History Surgery Date Site/Laterality Comments OTHER SURGICAL HISTORY Chlecystectomy SECTION C- section WRIST SURGERY wrist surgery NOSE SURGERY Nasal surgery CHOLECYSTECTOMY SECTION CARPAL TUNNEL RELEASE COLONOSCOPY 02/05/2010 COLONOSCOPY 05/27/2022 Medical History Medical History Date Comments Hx Other Medical CHICO Hx Other Medical PND Hx Other Medical Anal fissure Sleep apnea Sleep apnea Hx Other Medical HTN Hx Other Medical DM Polyp of colon Colon polyps Asthma Asthma Diabetes mellitus (HCC) Hypertension Rheumatoid arthritis (HCC) Depression CHF (congestive heart failure) (HCC) Type 2 diabetes mellitus (HCC) Lymphoma (HCC) Family History Medical History Relation Name Comments Colon cancer Brother COVID-19 Father Heart disease Mother Diabetes Other 1 Family history of Diabetes mellitus; Other Other 2 Family history of HTN; Other Other 3 Family history of Asbestosis; Coronary artery disease Other 4 Fami ly history of Coronary artery disease; Relation Name Status Comments Brother Father (Age 84) Mother Alive Other 1 Other 2 Other 3 Other 4 Social History Tobacco Use Types Packs/Day Years Used Date Smoking Tobacco: Never Smokeless Tobacco: Never Tobacco Cessation:Counseling Given: Not Answered Alcohol Use Standard Drinks/Week Comments No 0 (1 standard drink = 0.6 oz pur e alcohol) AUDIT-C Answer Date Recorded Q1: How often do you have a drink containing alcohol? Never 08/25/2023 Q2: How many drinks containi ng alcohol do you have on a typical day when you are drinking? Patient does not drink Q3: How often do you have si x or more drinks on one occasion? Never 08/25/2023 PHQ-2 Answer Date Recorded PHQ-2 Total Score (If total score is 3 or more points, staff should administer the PHQ-9) 0 11/14/2024 Personal Safety Answer Date Recorded Have you ever been in or are you currently in a harmful physical or emotional relationship or is someone making you feel afraid or unsafe? Denies 02/23/2024 Comments No Sex and Gender Information Value Date Recorded Sex Assigned at Not on file Legal Sex Female 1:49 AM LABORATORY MACHINIST Gender Identity Not on file Sexual Orientation Not on file Obstetrics History Para Term AB IAB SAB Ectopic Multiple Livin g Live Births 5 2 3 Date Outcome GA Total Labor Labor/2nd/3rd Weight Sex Type Anes PTL Patricia A1 A5 Name Clin Para Para AB AB AB Last Filed Vital Signs Vital Sign Reading Time Taken Comments Blood Pressure 126/72 03/13/2025 11:02 AM CDT Pulse 73 03/13/2025 11:02 AM CDT Temperature 36.4 C (97.5 F) 07/02/2022 2:36 PM CDT Respiratory Rate 16 11/14/2024 11:34 AM LABORATORY MACHINIST Oxygen Saturation 98% 03/13/2025 11:02 AM CDT Inhaled Oxygen Concentration - - Weight 89.8 kg (198 lb) 03/13/2025 11:02 AM CDT Height 162.6 cm (5' 4) 03/13/2025 11:02 AM CDT Body Mass Index 33.99 03/13/2025 11:02 AM CDT Plan of Treatment Health Maintenance Due Date Last Done Comments Dilated Eye Exam 1963 Zoster Vaccine (1 of 2) 2013 DTaP/Tdap/Td Vaccine (2 - Td or Tdap) 10/16/2019 10/16/2009 Foot Exam 12/26/2022 12/26/2021 Breast Cancer Screening-Mammogram 01/23/2023 022, 10/09/2016 Cervical Cancer Screening 04/21/2024 04/21/2023 Covid-19 Vaccine (2023-11 5 season) 2024 02/13/2022, 09/17/2021, 12/26/2020, Additional history exists Albumin Creatinine Ratio, Urine 06/17/2024 , 01/02/2022 Hemoglobin A1C 11/11/2024 05/11/2024, 06/05, 01/01/2023, Additional history exists Regular Well Visit/Exam 18-64 05/11/2025 05/11/2024, 04/21/2023 eGFR 05/11/2025 05/11/2024, 01/03, 06/17/2023, Additional history exists Influenza Vaccine (#1) 2025 , 06/17/2023, 07/02/2022, Additional history exists Colon Cancer Screening-Colonoscopy 06/11/20252021, 05/27/2022 Depression Screening 11/14/2025 11/14/2024, 05/11/2024, 08/25/2023, Additional history exists Lipid Panel 03/13/2026 03/13/2025, 09/04, 05/11/2024, Additional history exists Pneumococcal vaccine <65 Completed 023, 02/10/2018, 10/16/2009 Hepatitis B Screening Completed 05/11/2024 Hepatitis C Screening Completed 05/11/2024, 022 Procedures Procedure Name Priority Date/Time Associated Diagnosis Comments TRANSTHORACIC ECHO (TTE) COMPLETE W DOPPLER/CF WO CONTRAST Routine 03/27/2025 2:15 PM CDT Chronic combined systolic and diastolic CHF (congestive heart failure) (HCC) Coronary artery disease involving [place] coronary artery of [place] heart without angina pectoris Mitral valve insufficiency and aortic valve insufficiency Non-ischemic cardiomyopathy (HCC) XR CHEST PA LATERAL 2 VIEWS Schedule Routine, Read Routine (OP Routine) 03/13/2025 12:19 PM CDT Cough, unspecified type PRO B-TYPE NATRIURETIC PEPTIDE Routine 03/13/2025 12:16 PM CDT Chronic combined systolic and diastolic CHF (congestive heart failure) (HCC) POCT LIPID PANEL Routine 03/13/2025 10:57 AM CDT Coronary artery disease involving [place] coronary artery of [place] heart without angina pectoris HEPATITIS C ANTIBODY Routine 05/11/2024 12:50 PM CDT Need for hepatitis B screening test EGFR Routine 05/11/2024 12:50 PM CDT Type 2 diabetes mellitus with hyperglycemia, unspecified whether exterminator helper termite insulin use (HCC) POCT HEMOGLOBIN A1C Routine 05/11/2024 11:46 AM CDT Type 2 diabetes mellitus with hyperglycemia, unspecified whether exterminator helper termite insulin use (HCC) ALBUMIN CREATININE RATIO, URINE Routine 06/17/2023 11:18 AM CDT Type 2 diabetes mellitus without complication, without long-term current use of insulin (HCC) Type 2 diabetes mellitus with hyperglycemia, without long-term current use of insulin (HCC) PAP AND HPV, REFLEX TO HPV GENOTYPES Routine 04/21/2023 2:37 PM CDT COLONOSCOPY 06/11/2022 7:10 AM CDT SCREENING MAMMOGRAM BILATERAL W ALEX Schedule Routine, Read Routine (OP Routine) 01/23/2022 4:35 PM CDT Encounter for screening mammogram for breast cancer from Last 3 Months or Most Recently Relevant to Health Maintenance Results * TRANSTHORACIC ECHO (TTE) COMPLETE W DOPPLER/CF WO CONTRAST (03/27/2025 2:15 PM CDT) EF Mod BP 74 % CONS SCIMAGE Anatomical Region Laterality Modality Ultrasound 03/27/2025 1:09 PM CDT Narrative 03/27/2025 4:12 PM CDT [facility] [address], [place] [address] [address] [facility] [address], [place] [address] P:[phone] P:[phone] Echocardiographic Report Patient Name: JACEK TRIPP A : 1965 Study Date: 03/27/2025 1:09:19 PM Gender: F Geological Aide: Marifer Easton (Darin)(CT), RD Location: [facility] Provider: AMY BAR Height(Cm): 163 BSA: 2.02 Weight(Kg): 89.8 Heart Rate: 52 BP: 126 / 72 Quality: Good Order Provider: AMY BAR PROCEDURES: Echocardiographic Report: Transthoracic echocardiogram with complete 2D, M-Mode, and color Doppler examination. With Strain Analysis. 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 MEASUREMENTS: 2D/MM Value Range Doppler Value Range EF Mod BP 74 % [ 54 - 74 ] BRENNEN Vmax 2.25 cm2 [ 2.00 - 4.00 ] LVIDd 2D 4.99 cm [ 3.80 - 5.20 ] AV Mean PG 4 mmHg LVIDs 2D 2.82 cm [ 2.20 - 3.50 ] AV Peak Gustavo 1.30 m/s [ 1.00 - 1.70 ] LVPWd 2D 1.09 cm [ 0.60 - 0.90 ] AV Peak PG 7 mmHg IVSd 2D 1.22 cm [ 0.60 - 0.90 ] AV VTI 29.78 cm LA Volume Index 25 cc/m2 [ 16 - 34 ] LVOT Diam 2.02 cm [ 1.70 - 2.10 ] LVOT Peak Gustavo 0.81 m/s [ 0.70 - 1.10 ] LVOT VTI 18.41 cm PV Peak Gustavo 0.73 m/s [ 0.40 - 0.80 ] TR Peak Gsutavo 2.55 m/s [ 1.00 - 2.80 ] TR Peak PG 26 mmHg 2D/MM Value Range Doppler Value Range - FINDINGS: Interpretation Site: Exam was interpreted at [facility]. Left Ventricle: Ejection fraction is measured at 74 %. Global Longitudinal Strain is -14 %. The left ventricle is normal in size and systolic function. There is moderate concentric left ventricular hypertrophy. The left ventricular ejection fraction is visually estimated to be 65-70%. Right Ventricle: Normal right ventricular size. Normal right ventricular systolic function. Left Atrium: The left atrium is normal in size. Right Atrium: The right atrium is normal in size. Atrial Septum: The atrial septum is not well visualized. Mitral Valve: There is no mitral stenosis. There is no mitral regurgitation. Aortic Valve: The aortic valve is trileaflet and opens well. There is mild aortic regurgitation. Tricuspid Valve: The tricuspid valve is grossly normal. There is trace tricuspid regurgitation. Pulmonic Valve: The pulmonic valve is not well visualized. There is color Doppler evidence of trace pulmonic valve regurgitation. Pericardium: Normal pericardium with no significant pericardial effusion. Aorta: The aortic root at the level of the sinus of Valsalva measures 3.6 cm in diameter. The visualized portions of the proximal ascending aorta is dilated measuring 4.5 cm in diameter. IVC: The IVC is not well visualized. CONCLUSIONS: Ejection fraction is measured at 74 %. Global Longitudinal Strain is -14 %. The left ventricle is normal in size and systolic function. There is moderate concentric left ventricular hypertrophy. The left ventricular ejection fraction is visually estimated to be 65-70%. The aortic root at the level of the sinus of Valsalva measures 3.6 cm in diameter. The visualized portions of the proximal ascending aorta is dilated measuring 4.5 cm in diameter. Electronically Signed By: Dr. Momo Louis 03/27/2025 4:11:46 PM CDT Procedure Note Momo Louis MD - 03/27/2025 [facility] [address] [facility] [address], [place] [address] [address] [facility] [id number], [place] [address] P:[phone] P:[phone] Echocardiographic Report Patient Name: JACEK TRIPP A : 1965 Study Date: 03/27/2025 1:09:19 PM Gender: F Geological Aide: Marifer Fields)(CT), [facility] Location: [facility] Provider: AMY BAR Height(Cm): 163 BSA: 2.02 Weight(Kg): 89.8 Heart Rate: 52 BP: 126 / 72 Quality: Good Order Provider: AMY BAR PROCEDURES: Echocardiographic Report: Transthoracic echocardiogram with complete 2D, M-Mode, and color Dopplerexamination. With Strain Analysis. 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 MEASUREMENTS: 2D/MM Value Range Doppler ValueRange EF Mod BP 74 % [ 54 - 74 ] BRENNEN Vmax 2.25cm2 [ 2.00 - 4.00 ] LVIDd 2D 4.99 cm [ 3.80 - 5.20 ] AV Mean PG 4mmHg LVIDs 2D 2.82 cm [ 2.20 - 3.50 ] AV Peak Gustavo 1.30m/s [ 1.00 - 1.70 ] LVPWd 2D 1.09 cm [ 0.60 - 0.90 ] AV Peak PG 7mmHg IVSd 2D 1.22 cm [ 0.60 - 0.90 ] AV VTI 29.78cm LA Volume Index 25 cc/m2 [ 16 - 34 ] LVOT Diam 2.02 cm[ 1.70 - 2.10 ] LVOT Peak Gustavo 0.81 m/s [ 0.70 - 1.10 ] LVOT VTI 18.41 cm PV Peak Gustavo 0.73 m/s [ 0.40 - 0.80 ] TR Peak Gustavo 2.55 m/s [ 1.00 - 2.80 ] TR Peak PG 26 mmHg 2D/MM Value Range Doppler ValueRange - FINDINGS: Interpretation Site: Exam was interpreted at [facility]. Left Ventricle: Ejection fraction is measured at 74 %. Global Longitudinal Strain is -14%. The left ventricle is normal in size and systolic function. There is moderateconcentric left ventricular hypertrophy. The left ventricular ejection fraction isvisually estimated to be 65-70%. Right Ventricle: Normal right ventricular size. Normal right ventricular systolicfunction. Left Atrium: The left atrium is normal in size. Right Atrium: The right atrium is normal in size. Atrial Septum: The atrial septum is not well visualized. Mitral Valve: There is no mitral stenosis. There is no mitral regurgitation. Aortic Valve: The aortic valve is trileaflet and opens well. There is mild aorticregurgitation. Tricuspid Valve: The tricuspid valve is grossly normal. There is trace tricuspidregurgitation. Pulmonic Valve: The pulmonic valve is not well visualized. There is color Doppler evidenceof trace pulmonic valve regurgitation. Pericardium: Normal pericardium with no significant pericardial effusion. Aorta: The aortic root at the level of the sinus of Valsalva measures 3.6 cm indiameter. The visualized portions of the proximal ascending aorta is dilated measuring4.5 cm in diameter. IVC: The IVC is not well visualized. CONCLUSIONS: Ejection fraction is measured at 74 %. Global Longitudinal Strain is -14%. The left ventricle is normal in size and systolic function. There is moderateconcentric left ventricular hypertrophy. The left ventricular ejection fraction isvisually estimated to be 65-70%. The aortic root at the level of the sinus of Valsalva measures 3.6 cm indiameter. The visualized portions of the proximal ascending aorta is dilated measuring4.5 cm in diameter. Electronically Signed By: Dr. Momo Louis 03/27/2025 4:11:46 PM CDT Amy Bar MD CV ECHO PROCEDURES Final Result * XR Chest Pa Lateral 2 Views (03/13/2025 12:19 PM CDT) Anatomical Region Laterality Modality Body, Chest N/A Digital Radiogra phy 03/13/2025 3:57 PM CDT Narrative 03/13/2025 3:57 PM CDT EXAM DESCRIPTION: XR CHEST PA LATERAL 2 VIEWS REASON FOR STUDY: Pt complains of cough for a month and a half. No surgery to heart, lungs, or chest. History of heart disease. Non-smoker. TECHNIQUE: 2 radiographic view(s) of the chest. COMPARISON: Chest radiograph 09/23/2020 FINDINGS: The cardiomediastinal silhouette appears normal. There is no airspace consolidation or pleural effusion. IMPRESSION: No acute findings THIS IS AN ELECTRONICALLY VERIFIED FINAL REPORT 03/13/2025 3:57 PM - Electronically signed by Ian Spear M.D., JR T: Report ID: [id number] Reading Location: [id number] Procedure Note Ina Spear MD - 03/13/2025 EXAM DESCRIPTION: XR CHEST PA LATERAL 2 VIEWS REASON FOR STUDY: Pt complains of cough for a month and a half. No surgery to heart, lungs,or chest. History of heart disease. Non-smoker. TECHNIQUE: 2 radiographic view(s) of the chest. COMPARISON: Chest radiograph 09/23/2020 FINDINGS: The cardiomediastinal silhouette appears normal. There is no airspace consolidation or pleural effusion. IMPRESSION: No acute findings THIS IS AN ELECTRONICALLY VERIFIED FINAL REPORT 03/13/2025 3:57 PM - Electronically signed by Ian Spear M.D., JR T: Report ID: [id number] Reading Location: [id number] Amy Bar MD IMG XR PROCEDURES Final R esult * Pro B-type natriuretic peptide (03/13/2025 12:16 PM CDT) NT-proBNP <36 <=300 pg/mL Comment: Interpretive Comments: A. Dyspnea in Acute Care Setting All Ages: < 300 pg/ml, acute heart failure unlikely. < 50 yrs: 300 - 450 pg/ml, further investigation warranted. > 450 pg/ml, acute heart failure likely. 50 - 74 yrs: 300 - 900 pg/ml, further investigation warranted. > 900 pg/ml, acute heart failure likely . > or = 75 yrs: 450 - 1800 pg/ml, further investigation warranted. > 1800 pg/ml, acute heart failure likely. B. Non-acute Setting < 75 yrs < 125 pg/ml, rules out heart failure. > or = 125 pg/ml, further investigation warranted. > or = 75 yrs < 450 pg/ml, rules out heart failure. > or = 450 pg/ml, further investigation warranted. - Knowledge of each individual patient's NT-proBNP range may be more useful than using similar cut-points for every patient. Please note that marked elevations in NT-proBNP levels may be observed in state other than Left Ventricular Congestive Failure, including: acute coronary syndromes, right heart strain/failure (including pulmonary embolism and cor pulmonale), critical illness, renal failure, as well as advanced age. - References: 1. Ata RUIZ et.al. Eur Heart J. 2006:27:330-337. 2. Peri RW, Estevan AM. J. AM Lidia Cardiol: Cardiovasc Imag. 2009;2: 216- 225. Interpretive Data Last Revised Date: 2018. Blood 03/13/2025 12:1 6 PM CDT 03/13/2025 6:07 PM CDT us Amy Bar MD LAB BLOOD ORDERAB[place] [address] [address] [place] [address] * (ABNORMAL) POCT lipid panel (03/13/2025 10:57 AM CDT) Cholesterol, POC 124 <200 MG/DL HDL, POC 28(A) >=40 mg/dL Triglycerides, POC 202(A) <=149 mg/dL LDL Cholesterol POC 55 <=129 mg/dL Chol/HDL Ratio, POC 4.4 NONE Non-HDL Cholesterol, POC 95 NONE mg/dL Cholesterol Total, POC 124 30 - 199 mg/dL Capillary blood 03/13/2025 1 0:57 AM CDT Amy Bar MD POINT OF CARE TEST ORDERA BLES Final Result * eGFR (05/11/2024 12:50 PM CDT) eGFR >90 >=60 mL/min/1. 73 m2 Comment: Interpretive Data Reference Interval Normal >/= 90 mL/min/1.73m2 Mildly decreased* 60 - 89 mL/min/1.73m2 Mildly to moderately decreased 45 - 59 mL/min/1.73m2 Moderately to severely decreased 30 - 44 mL/min/1.73m2 Severely decreased 15 - 29 mL/min/1.73m2 Kidney Failure < 15 mL/min/1.73m2 *Relative to young adult level Estimated glomerular filtration rate is determined by the 2020 CKD-EPI equation recommended by the National Kidney Foundation (A Unifying Approach to GFR Estimation: Recommendations of the NKF-ASK Task Force on Reassessing the Inclusion of Race in Diagnosing Kidney Disease, JASN 2020). The CKD-EPI equation should not be used for patients with unstable renal function and has not been validated in children and those over 70. Current interpretive data was last reviewed 2021. Blood 05/11/2024 12:5 0 PM CDT 05/11/2024 1:14 PM CDT Shorty Nicole MD LAB BLOOD ORDERABLES Final Resul t [facility]) [address] [facility] Department [place] [address] * Hepatitis C antibody Blood (05/11/2024 12:50 PM CDT) Pathologist [facility] Hep C Ab Nonreactive Nonreactive Comment: Interpretive Data Nonreactive: Antibodies to HCV not detected. Does NOT exclude the possibility of recent exposure to HCV. Equivocal: Equivocal for HCV antibodies. Supplemental molecular testing will be automatically performed to determine infection status in accordance with current CDC screening recommendations. Reactive: Positive for HCV antibodies. This may represent current or past HCV infection. Supplemental molecular testing will be automatically performed to determine current infection status in accordance with current CDC screening recommendations. Interpretive data was last revised on 2019. Testing performed by: [address] [address] Blood 05/11/2024 12:5 0 PM CDT 05/11/2024 3:29 PM CDT us Shorty Nicole MD LAB MICROBIOLOGY - GENERAL ORDER DELANEY Edited Result - Final [place] [facility] ([place]) [address] [facility] Department [place] [address] * POCT hemoglobin A1c (05/11/2024 11:46 AM CDT) [facility] Hemoglobin A1C, POC 6.7 % Capillary blood 05/11/2024 1 1:46 AM CDT us Shorty Nicole MD POINT OF CARE TEST ORDERABLES Fi nal Result * Albumin Creatinine Ratio, Urine (06/17/2023 11:18 AM CDT) Pathologist [facility] Albumin Ur <12.0 mg/L [facility] ([facility]) Comment: Interpretive Data No reference range established. Current interpretive data was last revised 2019. Testing performed by: [address] [address] Creatinine Ur 59.2 mg/dL [facility] ([facility]) Comment: Interpretive Data No reference range established. Current interpretive data was last revised 2019. Testing performed by: [address] [address] Albumin Creatinine Ratio, Ur <20 1 - 29 mg/g [facility] ([facility]US) Comment:Testing performed by : [facility], [address] [facility], [place]., [address] Urine 06/17/2023 11:1 8 AM CDT 06/17/2023 10:08 PM CDT Shorty Nicole MD LAB URINE ORDERABLES Final Resul t [facility] ([facility]) [address] [facility] Department [place] [address] * Pap and HPV, reflex to HPV Genotypes (04/21/2023 2:37 PM CDT) CLINICAL INFORMATION: [facility] Comment: Routine exam Postmenopausal LMP [facility] Comment:POST MENOPAUSAL Previous Pap [facility] Comment:NONE GIVEN Prev. Bx [facility] Comment:NONE GIVEN SOURCE: [facility] Comment:Cervix, Endocervix Pap, specimen adequacy [facility] Comment: Satisfactory for evaluation. Endocervical/transformation zone component present. HPV interp [facility] Comment: Cytology Results: Negative for intraepithelial lesion or malignancy. Drying Room Attendant [facility] Comment: DEDRICKMALIK(ASCP) CT screening location: [place] [address] [place] [address] Comment [facility] Comment: EXPLANATORY NOTE: The Pap is a screening test for cervical cancer. It is not a diagnostic test and is subject to false negative and false positive results. It is most reliable when a satisfactory sample, regularly obtained, is submitted with relevant clinical findings and history, and when the Pap result is evaluated along with historic and current clinical information. Human papillomavirus DNA, High Risk E6/E7 Not Detected NOT DETECTED [facility]ISON Comment: Not Detected High Risk HPV types (16,18,31,33,35,39,45,51,52, 56,58,59,66,68) were not detected. Other HPV types which cause anogenital lesions may be present. The significance of the other types of HPV in malignant processes has not been established. Methodology: Real Time PCR 04/21/2023 2:37 PM CDT 04/22/2023 2:13 AM CDT us Lucia Clark [employer]AND MANAG[employer] FOREST[employer] LAB CYTOLOGY ORDERABLES Final Re [facility]ult [facility] [address] [place] [address] [facility] [address] [facility] [place] [address] * COLONOSCOPY (06/11/2022 7:10 AM CDT) Anatomical Region Laterality Modality Other Narrative Procedure Note Rosibel Sharp MD - 06/11/2022 7:10 AM CDT [facility] Patient Name: Jacek Tripp Procedure Date: 06/11/2022 7:10 AM Date of : 1965 Admit Type: Outpatient Age: 56 Gender: Female Attending MD: Rosibel Sharp M.D. Room: [facility] ENDOSCOPY ROOM 1 Note Status: Finalized Patient Profile: This is a 56 year old female. Her brother had colon cancer Procedure: Colonoscopy Indications: Screening in patient at increased risk: Familyhistory of 1st-degree relative with colorectal cancerbefore age 60 years, Last colonoscopy: February 2010 Referring MD: Cherelle Mary Providers: Rosibel Sharp M.D. Impression: - One 3 mm polyp in the cecum, removed with a jumbo cold forceps. Resected and retrieved. - One 4 mm polyp in the descending colon, removedwith a jumbo cold forceps. Resected and retrieved. - Internal and external hemorrhoids. Recommendation: - Await pathology results. - Repeat colonoscopy in 3 years for screeningpurposes. - Continue present medications. Medicines: Monitored Anesthesia Care Complications: No immediate complications. Estimated Blood Loss: Estimated blood loss: none. Procedure: Pre-Anesthesia Assessment: - Prior to the procedure, a History and Physicalwas performed, and patient medications and allergieswere reviewed. The patient's tolerance of previous anesthesia was also reviewed. The risks andbenefits of the procedure and the sedation options and risks were discussed with the patient. All questions were answered, and informed consent was obtained. Prior Anticoagulants: The patient has taken noanticoagulant or antiplatelet agents. ASA Grade Assessment: III -A patient with severe systemic disease. Afterreviewing the risks and benefits, the patient was deemed in satisfactory condition to undergo the procedure. The benefits, risks and alternatives of theprocedure and sedation were discussed and informed consentwas obtained. All questions were answered. Please referto the signed informed consent document in the medical record. The bowel preparation used was Miralax via split dose instruction. The bowel preparation usedwas bisacodyl tablets via split dose instruction. The scope was passed under direct vision. The Pediatric Colonoscope PCF-H190L [id number] was introducedthrough the anus and advanced to the the cecum, identifiedby appendiceal orifice and ileocecal valve. Thequality of the bowel preparation was adequate. Bowel prepwas administered using a split dose. Findings: Small to medium size external hemorrhoids were found on perianalexam. A 3 mm polyp was found in the cecum. The polyp was sessile. The polyp was removed with a jumbo cold forceps. Resection and retrieval were complete. The rectum, sigmoid colon, transverse colon and ascending colonappeared normal. A 4 mm polyp was found in the descending colon. The polyp wassessile. The polyp was removed with a jumbo cold forceps. Resection andretrieval were complete. Internal hemorrhoids were found during retroflexion. The hemorrhoids were medium-sized. Electronically signed by oRsibel Sharp M.D. Rosibel Sharp M.D. 06/11/2022 8:51:40 AM Number of Addenda: 0 Note Initiated On: 06/11/2022 7:10 AM Procedure Code(s): --- Professional --- 98971, Colonoscopy, flexible; with biopsy, single or multiple Diagnosis Code(s): --- Professional --- Z80.0, Family history of malignant neoplasm of digestive organs K64.8, Other hemorrhoids D12.0, Benign neoplasm of cecum D12.4, Benign neoplasm of descending colon CPT copyright 2020 [employer]. All rights reserved. The codes documented in this report are preliminary and upon compounder helper reviewmay be revised to meet current compliance requirements. Recognized by the [employer] for promoting quality in endoscopy Rosibel Sharp MD ENDOSCOPY PROCEDURES Edite d Result - Final * Screening Mammogram Bilateral W Alex (01/23/2022 4:35 PM CDT) Anatomical Region Laterality Modality Breast Bilateral Mammography 01/28/2022 2:56 PM CDT Impressions 01/28/2022 2:56 PM CDT There is no mammographic evidence of malignancy. A 1 year screening mammogram is recommended. BI-RADS: 1 - Negative. The patient has been or will be contacted. The patient will be entered into a reminder system with a target due date of 1 year for her next mammogram. Electronically signed by: BROOKLYNN Govea 01/28/2022 2:56 PM CDT EXAMINATION: SCREENING MAMMOGRAM BILATERAL W ALEX ORDERING HEALTHCARE PROVIDER: BRITTNEY YUSUF HISTORY: Routine screening mammography. COMPARISON: 10/09/2016, 06/29/2014. TECHNIQUE: CC and MLO views of both breasts were obtained with digital technique using digital breast tomosynthesis with C view. Computer aided detection was utilized. FINDINGS: DENSITY: The breasts have scattered areas of fibroglandular density. BREASTS: There are no suspicious masses, suspicious calcifications, or other suspicious findings in either breast. There has been no suspicious interval change. Brittney Yusuf [employer] IMG MAMMO PROCEDURES Final Resul t from Last 3 Months or Most Recently Relevant to Health Maintenance Insurance [facility] Advance Directives For more information, please contact: [phone] * Full Code (Latest Code Status on File) Date Activated Date Inactivated Comments 06/11/2022 7:25 AM 06/11/2022 1:35 PM * Full Code Date Activated Date Inactivated Comments 06/11/2022 7:25 AM 06/11/2022 7:25 AM * Full Code Date Activated Date Inactivated Comments 05/27/2022 10:05 AM 05/27/2022 4:02 PM * Full Code Date Activated Date Inactivated Comments 05/27/2022 10:05 AM 05/27/2022 10:05 AM Care Teams Blanket Binder Relationship Specialty Start Date End Date Shorty Nicole MD PCP - General Family Medicine 07/02/22 Luz Maria Henderson, PT Physical Therapist Physical Therapy 03/17/22
--- OUTSIDE RECORDS SUMMARY | 2025-04-05 14:57 | XMS_ITS | Encounter Summary ---
Author Organization [facility] Address [address] [place] [address] Care Team Providers Care Music Internship Name Role Phone Augusto Hanna MD Primary Care Provider [phone] Encounter Details Date Type Department Care Team (Late st Contact Info) Description 09/18/2006 Outpatient [facility] Internal Medicine [address] [address] Augusto Hanna MD [address] [place] [address] Social History Tobacco Use Types Packs/Day Years Used Date Smoking Tobacco: Never Assessed Comments Unknown Sex and Gender Information Value Date Recorded Sex Assigned at Not on file Legal Sex Female 3:39 AM ADMINISTRATION CLERK Gender Identity Not on file Sexual Orientation Not on file documented as of this encounter Last Filed Vital Signs Vital Sign Reading Time Taken Comments Blood Pressure 130/78 09/18/2006 2:00 PM ADMINISTRATION CLERK Pulse - - Temperature 36.9 C (98.4 F) 09/18/2006 2:00 PM ADMINISTRATION CLERK Respiratory Rate - - Oxygen Saturation - - Inhaled Oxygen Concentration - - Weight 114.8 kg (253 lb) 09/18/2006 2:00 PM ADMINISTRATION CLERK Height - - Body Mass Index 42.76 10/17/2003 3:45 PM ADMINISTRATION CLERK documented in this encounter Plan of Treatment Not on file documented as of this encounter Visit Diagnoses Not on filedocumented in this encounter Care Teams Music Internship Relationship Specialty Start Date End Date Augusto Hanna MD PCP - General 06/07/08 01/23/22 documented as of this encounter
--- OUTSIDE RECORDS SUMMARY | 2025-04-05 14:57 | XMS_ITS | Encounter Summary ---
Author Organization [facility] Address 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 HISTORY: HISTORY: 401.9-HYPERTENSION, UNSPECIFIED The patient denies chest pain, shortness of breath, dyspnea on exertion, pedal edema, or headache. 715.90-OSTEOARTHROSIS UNSPECIFIED The arthritis is unchanged. 780.57-SLEEP APNEA occ problems with machine PHYSICAL EXAMINATION: CONSTITUTIONAL: GENERAL APPEARANCE: Healthy appearing patient in no distress. NECK/THYROID: Trachea midline. No thyroid enlargement, tenderness, or mass. No supraclavicular or cervical adenopathy. RESPIRATORY: Clear to auscultation and percussion. Normal respiratory effort. CARDIOVASCULAR: CARDIAC: Regular rhythm. No murmurs, rubs, or gallops. ARTERIAL: No aortic bruits. EDEMA/VARICOSITIES OF EXTREMITIES: No edema or varicosities. GASTROINTESTINAL: ABDOMEN: Soft, non-tender, without masses. Bowel sounds active. LIVER/SPLEEN/KIDNEY: No hepatosplenomegaly, tenderness or nodularity. Kidneys not palpable. ASSESSMENT/PLAN: 272.4-HYPERLIPIDEMIA recheck lab 401.9-HYPERTENSION, UNSPECIFIED cont med, pt to home monitor LAB ORDERS: fasting Order number: [id number] Test Ordered: COMPREHENSIVE METABOLIC PANEL W/ GLOMERULAR FILTRATION RATE, ESTIMATED (EGFR) 16464 Order number: [id number] Test Ordered: LIPID PANEL 7600 780.57-SLEEP APNEA pt to take maching for adm PREVENTIVE COUNSELING The patient was counseled regarding diet, regular sustained exercise for at least 30 minutes 3-4 times per week. Patient Education: Risks, benefits, and possible side effects of medication(s) were reviewed with the patient. RETURN VISIT : Patient instructed to return in 4 months. Electronically Signed by: Augusto Hanna MD on Friday, December 29, 2006 documented in this encounter Plan of Treatment Not on file documented as of this encounter Visit Diagnoses Not on filedocumented in this encounter Care Teams Shrimp Trawler Captain Relationship Specialty Start Date End Date Augusto Hanna MD PCP - General 06/07/08 01/23/22 documented as of this encounter
--- OUTSIDE RECORDS SUMMARY | 2025-04-05 14:57 | XMS_ITS | Encounter Summary ---
Author Organization [facility] Address 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 [address] D.O.B: 1965 SSN: [id number] Parent/Guardian if applicable: Patient Insurance: [employer] PL[employer] Policy#: [id number] Group #: Best To Call : [phone] Best Time to Call : ANYTIME. May We Leave Message At That Number : YES, LEAVE MESSAGE. Referring to: PODIATRY Dr. Jm Potter ph: [phone]. Dr. Ramon Potter ph: [phone]. Reason for referral: foot and nail care. ORDERING PHYSICIAN : GERMÁN MEEKS MD PRIORITY OF REFERRAL: AT PATIENT'S CONVENIENCE. OFFICE CHARTER COACH DRIVER & PHONE: Apryl Hahn C FOR SCHEDULING USE ONLY FIRST ATTEMPT Date:JUN 01, 2007 Lucia Mann A 10:07 a Spoke with Patient. APPOINTMENT DATE : 06/17/2007 ( 1:30 pm) Dr. Jm Potter 06/01/07 10:08 am Referral number: [employer] --NN Entered into [facility] for tracking purposes. melchor vergara 06/16/2007 08:37 a Referral/Pre-auth communicated: Referral information phoned to specialist's office. ADDITIONAL CRS COMMENTS: Date MAY 05, 2007 Roslyn Paz 09:21 a Who would you like the patient to see? balaji Potter in [facility] * Germán Meeks MD - 02/23/2008 1:00 PM CDT WEIGHT: 250lbs BLOOD PRESSURE: 128/80 Left Arm Sitting ( LARGE CUFF) NURSE NAME: Bryson Reyes N TOBACCO USE Patient does not currently use tobacco. CHIEF COMPLAINT Back Pain HISTORY: back pain worse rad to left lef HISTORY: 401.9-HYPERTENSION, UNSPECIFIED The patient denies chest pain, shortness of breath, dyspnea on exertion, pedal edema, or headache. 780.57-SLEEP APNEA The patient's sleep apnea has not changed. PHYSICAL EXAMINATION: CONSTITUTIONAL: GENERAL APPEARANCE: Healthy appearing [...] hepatosplenomegaly, tenderness or nodularity. Kidneys not palpable. MUSCULOSKELETAL EXAM: EXTREMITIES: ls tender BILATERAL LOWER EXTREMITIES: No misalignment or tenderness. Full range of motion. Normal stability,strength and tone. fungal nails feet ASSESSMENT/PLAN: 401.9-HYPERTENSION, UNSPECIFIED con med, enc diet and ex 724.5-BACK PAIN discussed try med, pt to look at alt pain mgt, she does not want surgery MEDICATIONS: FLEXERIL ORAL TABLET 10 MG, 1 Every Day At Bedtime, 30 Dispensed, 3 Fills, status: NEW PRESCRIPTION, 05/04/2007. LYRICA ORAL CAPSULE CONVENTIONAL 75 MG, 1 Two Times A Day, 60 Dispensed, status: NEW PRESCRIPTION, 05/04/2007. SPECIALTY REFERRAL: PODIATRY Dr. Ramon Potter ph: [phone]. Dr. Jm Potter ph: [phone]. RETURN VISIT : Patient instructed to return in 3 months. Electronically Signed by: Germán Meeks MD on Friday, May 04, 2007 documented in this encounter Plan of Treatment Not on file documented as of this encounter Visit Diagnoses Not on filedocumented in this encounter Care Teams Book Reviewer Relationship Specialty Start Date End Date Germán Meeks MD PCP - General 06/07/08 01/23/22 documented as of this encounter
--- OUTSIDE RECORDS SUMMARY | 2025-04-05 14:57 | XMS_ITS | Encounter Summary ---
Author Organization [facility] Address 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 Gender Identity Not on file Sexual Orientation Not on file documented as of this encounter Last Filed Vital Signs Vital Sign Reading Time Taken Comments Blood Pressure 140/70 12/29/2006 3:15 PM CDT Pulse - - Temperature - - Respiratory Rate - - Oxygen Saturation - - Inhaled Oxygen Concentration - - Weight 117.9 kg (260 lb) 12/29/2006 3:15 PM CDT Height - - Body Mass Index 43.94 10/17/2003 3:45 PM BEVERAGE STEWARD documented in this encounter Plan of Treatment Not on file documented as of this encounter Visit Diagnoses Not on filedocumented in this encounter Care Teams Starter Mechanic Relationship Specialty Start Date End Date Augusto Hanna MD PCP - General 06/07/08 01/23/22 documented as of this encounter
--- OUTSIDE RECORDS SUMMARY | 2025-04-05 14:57 | XMS_ITS | Encounter Summary ---
Author Organization [facility] Address [address] [place] [address] Care Team Providers Care Crematory Operator Name Role Phone Augusto Hanna MD Primary Care Provider [phone] Encounter Details Date Type Department Care Team (Late st Contact Info) Description 01/08/2006 Orders Only [facility] Internal Medicine [address] [address] Augusto Hanna MD [address] [place] [address] Social History Tobacco Use Types Packs/Day Years Used Date Smoking Tobacco: Never Assessed Comments Unknown Sex and Gender Information Value Date Recorded Sex Assigned at Not on file Legal Sex Female 3:39 AM WAITER/WAITRESS FORMAL Gender Identity Not on file Sexual Orientation Not on file documented as of this encounter Progress Notes * Augusto Hanna MD - 07/14/2008 12:38 AM CDT WEIGHT: 262lbs BLOOD PRESSURE: 112/50 Right Arm Sitting Large Cuff NURSE NAME: Bryson Reyes N CHIEF COMPLAINT Patient here for follow up hypertension. HISTORY: HISTORY: 401.9-HYPERTENSION, UNSPECIFIED The patient is tolerating the medication. 466.0-BRONCHITIS ACUTE The acute bronchitis has improved. 724.5-BACK PAIN unchanged , little help with epidural 782.3-EDEMA The edema has improved. 786.50-CHEST PAIN UNSPECIFIED better when used xanax-stress related 477.9-RHINITIS ALLERGIC UNSPECIFIED sx worse recently ROS: RESPIRATORY: No dyspnea, cough, hemoptysis or wheezing. : No frequency, urgency, hematuria or dysuria. GI: No abdominal pain, nausea, vomiting, diarrhea, constipation, melena, or hematochezia. PAST MEDICAL HISTORY: reviewed FAMILY HISTORY: 3 brothers valve disease SOCIAL HISTORY: TOBACCO USE: Has no significant smoking history. 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 PHYSICAL EXAMINATION: CONSTITUTIONAL: GENERAL APPEARANCE: Healthy appearing patient in no distress. EYES: PUPILS: Pupils equal and normally reactive to light and accommodation. EARS, NOSE, MOUTH AND THROAT: EARS: EFFUSION PRESENT BILATERALLY. ORAL: Inspection of gums, lips, palate, and teeth normal. No scars, lesions, or masses. Oral mucosaunremarkable with non-inflamed posterior pharynx. NECK/THYROID: Trachea midline. No thyroid enlargement, tenderness, or mass. No supraclavicular or cervical adenopathy. RESPIRATORY: Clear to auscultation and percussion. Normal respiratory effort. CARDIOVASCULAR: CARDIAC: Regular rhythm. No murmurs, rubs, or gallops. ARTERIAL: Aortic pulses of normal amplitude with no bruits. EDEMA/VARICOSITIES OF EXTREMITIES: No edema or varicosities. GASTROINTESTINAL: ABDOMEN: Soft, non-tender, without masses. Bowel sounds active. LIVER/SPLEEN/KIDNEY: No hepatosplenomegaly, tenderness or nodularity. Kidneys not palpable. SKIN: SKIN: Warm, dry, no diaphoresis, no significant lesions, irritation, rashes or ulcers. No induration, obvious subcutaneous nodules or tightening. ASSESSMENT/PLAN: 401.9-HYPERTENSION, UNSPECIFIED improved, contm ed 724.5-BACK PAIN discussed at length ,may need surgery, discussed wt loss issues 346.81-MIGRAINE occasional, periods when frequent MEDICATIONS: TOPAMAX ORAL TABLET 25 MG, 1 Two Times A Day, 60 Dispensed, 3 Fills, status: NEW PRESCRIPTION, 01/08/2006. 477.9-RHINITIS ALLERGIC UNSPECIFIED MEDICATIONS: DELANEY ORAL TABLET 180 MG, 1 Every Day, 30 Dispensed, 3 Fills, status: NEW PRESCRIPTION, 01/08/2006. RETURN VISIT : Patient instructed to return in 3 months. Electronically Signed by: Augusto Hanna MD on January documented in this encounter Plan of Treatment Not on file documented as of this encounter Visit Diagnoses Not on filedocumented in this encounter Care Teams Crematory Operator Relationship Specialty Start Date End Date Augusto Hanna MD PCP - General 06/07/08 01/23/22 documented as of this encounter
--- OUTSIDE RECORDS SUMMARY | 2025-04-05 14:57 | XMS_ITS | Encounter Summary ---
Author Organization [facility] Address [address] [place] [address] Care Team Providers Care Creel Clerk Name Role Phone Augusto Hanna MD Primary Care Provider [phone] Encounter Details Date Type Department Care Team (Late st Contact Info) Description 12/13/2007 Orders Only [facility] Internal Medicine [address] [address] Augusto Hanna MD [address] [place] [address] Social History Tobacco Use Types Packs/Day Years Used Date Smoking Tobacco: Never Assessed Comments Unknown Sex and Gender Information Value Date Recorded Sex Assigned at Not on file Legal Sex Female 3:39 AM CHIEF OF VITAL STATISTICS Gender Identity Not on file Sexual Orientation Not on file documented as of this encounter Progress Notes * Augusto Hanna MD - 03/09/2008 5:56 PM CDT TIME:01:07 pm PATIENT`S HOME PHONE: PATIENT`S WORK PHONE: PATIENT`S INSURANCE: [employer] WHO TOOK THE CALL: Mayra Rutherford R GENERAL INFORMATION ALTERNATIVE PHONE NUMBER: [phone] WHO CALLED: Patient called. CURRENT ALLERGY LIST: PHARMACY NUMBER: [phone] call pt also PROBLEMS: COUGH:Patient complains of cough. bad sounding, barky, asthma cough. al ittle mucous coughing a lot SECTION 1: REQUESTED ACTION tashia 12/13/07 at 01:08 pm: MEDICATION REQUEST: Patient wants medications and can not come in. DOCTOR`S RESPONSE: dinah 12/13/07 at 04:48 pm will need see again if not improved MEDICATIONS: Call in to Pharmacy MEDROL (HETAL) ORAL TABLET 4 MG, DIRECTED, 1 Dispensed, status: NEW PRESCRIPTION, 12/13/2007. ZITHROMAX Z-HETAL ORAL TABLET 250 MG, DIRECTED, 1 Dispensed, status: NEW PRESCRIPTION, 12/13/2007. FINAL ACTION: anant 12/13/07 at 05:13 pm Spoke with patient 12/13/07 at 05:13 pm. Called pharmacy at 12/13/07 at 05:14 pm. Electronically Signed by: Maryann Lyman on Thursday, December 13, 2007 documented in this encounter Plan of Treatment Not on file documented as of this encounter Visit Diagnoses Not on filedocumented in this encounter Care Teams Creel Clerk Relationship Specialty Start Date End Date Augusto Hanna MD PCP - General 06/07/08 01/23/22 documented as of this encounter
--- OUTSIDE RECORDS SUMMARY | 2025-04-05 14:57 | XMS_ITS | Encounter Summary ---
Author Organization [facility] Address [address] [place] [address] Care Team Providers Care Inspector Exhaust Emissions Name Role Phone Augusto Hanna MD Primary Care Provider [phone] Encounter Details Date Type Department Care Team (Late st Contact Info) Description 12/03/2007 Outpatient [facility] Internal Medicine [address] [address] Augusto Hanna MD [address] [place] [phone] Social History Tobacco Use Types Packs/Day Years Used Date Smoking Tobacco: Never Assessed Comments Unknown Sex and Gender Information Value Date Recorded Sex Assigned at Not on file Legal Sex Female 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
--- OUTSIDE RECORDS SUMMARY | 2025-04-05 14:57 | XMS_ITS | Encounter Summary ---
Author Organization [facility] Healthcare Address [address] [place] [address] Care Team Providers Care Drug Safety Scientist Name Role Phone BeatrizLuz Maria PT Unavailable Katrina Shorty Yancey MD Primary Care Provider [phone] Encounter Details Date Type Department Care Team (Latest Contact Info) Description 03/14/2025 Results Follow-Up [facility] Medical Group Cardiology at [address] [place] [address] Angelito Bar MD [address] [facility] [place] [address] [facility], [place] [place] [address] XR Chest Pa Lateral 2 Views, Pro B-type natriuretic peptide, Transthoracic Echo (TTE) Complete W Doppler/CF Social History Tobacco Use Types Packs/Day Years Used Date Smoking Tobacco: Never Smokeless Tobacco: Never Alcohol Use Standard Drinks/Week Comments No 0 [...] on file Legal Sex Female 1:49 AM LINE CREW SUPERVISOR Gender Identity Not on file Sexual Orientation Not on file documented as of this encounter Plan of Treatment Not on file documented as of this encounter Visit Diagnoses Not on filedocumented in this encounter Care Teams Drug Safety Scientist Relationship Specialty Start Date End Date Shorty Nicole MD PCP - General Family Medicine 07/02/22 LuzM aria Henderson, PT Physical Therapist Physical Therapy 03/17/22 documented as of this encounter
--- OUTSIDE RECORDS SUMMARY | 2025-04-05 14:57 | XMS_ITS | Encounter Summary ---
Author Organization [facility] Address 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 [address] D.O.B: 1965 SSN: [id number] Parent/Guardian if applicable: Patient Insurance: [employer] Policy#: [id number] Group #: Best To Call : [phone] P.M. Best Time to Call : ANYTIME. May We Leave Message At That Number : YES, LEAVE MESSAGE. Referring to: ENT (OTOLARYNGOLOGY) Dr. Rajesh Bond ph. [phone] fax [phone] or [phone]. Dr Liban Bhagat ph. [phone] fax: [phone] ph: [phone]. PODIATRY Dr. Ramon Potter ph: [phone]. Reason for referral: Podiatris rt foot toe pain PATIENT DIAGNOSIS: . 787.2-DYSPHAGIA ORDERING PHYSICIAN : GERMÁN MEEKS MD PRIORITY OF REFERRAL: AT PATIENT'S CONVENIENCE. OFFICE WATCHMAKING TEACHER & PHONE: Apryl Hahn C FOR SCHEDULING USE ONLY: FIRST ATTEMPT Date:JUL 17, 2006 Triston Duran 10:09 a Left message on Recorder. SECOND ATTEMPT: Date:JUL 21, 2006 Radha Dobbins 01:18 p Spoke with Patient. SPECIALIST/FACILITY REFERRED TO: SAME ABOVE. Dr. Ramon Potter SPECIALIST DIFFERENT FROM ABOVE. NAME : Dr. Beny Meza PHONE : [phone] FAX : [phone] The appointment was scheduled by Radha Dobbins APPOINTMENT DATE : 07/23/2006 ( 3:[address] Ramon Potter) APPOINTMENT DATE : 08/03/2006 ( 3:[address] Beny Meza) Number of visits authorized : 3 for each specialists EFFECTIVE DATES : Valid from: 07/21/2006 To: 07/21/2007 ( for both appointments) Referral number: [employer] [id number] (Dr. Beny Meza) & [id number] (Dr. Ramon Potter) [facility] 07/21/2006 01:34 p Referral/Pre-auth communicated: Referral faxed to fax number. [phone] & [phone] * Germán Meeks MD - 07/18/2008 8:17 PM CDT WEIGHT: 259lbs BLOOD PRESSURE: 126/80 Right Arm Sitting NURSE NAME: King McduffieTresa rocha CHIEF COMPLAINT Patient here for follow up hypertension. HISTORY: HISTORY: 346.81-MIGRAINE stable 401.9-HYPERTENSION, UNSPECIFIED The patient denies chest pain, shortness of breath, dyspnea on exertion, pedal edema, or headache. 724.5-BACK PAIN The back pain has not changed. 780.57-SLEEP APNEA cpap pend 787.2-DYSPHAGIA recent, throat feels full 703.0-DISEASES OF NAIL x 2 weeks, pain swelling ROS: ENDOCRINE: No heat or cold intolerance, no excessive thirst. CARDIAC: No chest pain, palpitations, orthopnea, dyspnea on exertion, or paroxysmal nocturnal dyspnea. RESPIRATORY: No dyspnea, cough, hemoptysis or wheezing. : No frequency, urgency, hematuria or dysuria. GI: No abdominal pain, nausea, vomiting, diarrhea, constipation, melena, or hematochezia. PAST MEDICAL HISTORY: reviewed FAMILY HISTORY: 3 brothers valve disease SOCIAL HISTORY: TOBACCO USE: Has no significant smoking history. 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 PHYSICAL EXAMINATION: CONSTITUTIONAL: GENERAL APPEARANCE: Healthy appearing patient in no distress. EARS, NOSE, MOUTH AND THROAT: EARS: Tympanic membranes shiny without retraction. Canals unremarkable. Hearing grossly normal. ORAL: Inspection of gums, lips, palate, and [...] tenderness or nodularity. Kidneys not palpable. SKIN: nail full, toe tender ASSESSMENT/PLAN: 401.9-HYPERTENSION, UNSPECIFIED con tmed LAB ORDERS: 3 mo Order number: [id number] Test Ordered: COMPREHENSIVE METABOLIC PANEL W/ GLOMERULAR FILTRATION RATE, ESTIMATED (EGFR) [id number] Order number: [id number] Test Ordered: LIPID PANEL 7600 724.5-BACK PAIN stable 780.57-SLEEP APNEA try rx 278.00-OBESITY UNSPECIFIED discussed, try med MEDICATIONS: WELLBUTRIN SR ORAL TABLET 12 HR 150 MG, 1 Two Times A Day, 60 Dispensed, 3 Fills, status: NEW PRESCRIPTION, 07/16/2006. 787.2-DYSPHAGIA refer ent 790.5-ABNORMAL LIVER ENZYMES enc wt loss , recheck 703.0-DISEASES OF NAIL refer podiatry 272.4-HYPERLIPIDEMIA handouts given SPECIALTY REFERRAL: ENT (OTOLARYNGOLOGY) Dr. Rajesh Bond ph. [phone] fax [phone] or [phone].or Liban Bhagat PODIATRY Dr. Ramon Potter ph: [phone]. RETURN VISIT : Patient instructed to return in 3 months. Electronically Signed by: Germán Meeks MD on , July 16, 2006 documented in this encounter Plan of Treatment Not on file documented as of this encounter Visit Diagnoses Not on filedocumented in this encounter Care Teams Cabinetmaker Helper Relationship Specialty Start Date End Date Germán Meeks MD PCP - General 06/07/08 01/23/22 documented as of this encounter
--- OUTSIDE RECORDS SUMMARY | 2025-04-05 14:57 | XMS_ITS | Encounter Summary ---
Author Organization [facility] Healthcare Address [address] [place] [address] Care Team Providers Care Power Line Installer Name Role Phone GregoriomarilynLuz Maria PT Unavailable Katrina Shorty Yancey MD Primary Care Provider [phone] Encounter Details Date Type Department Care Team (Late st Contact Info) Description 04/04/[address] [facility] Medical Group Cardiology [address] [place] [address] Angelito Bar MD [address] [facility] [address] [place] [address] [facility], [place] [place] [address] Social History Tobacco Use Types Packs/Day Years [...] on file Legal Sex Female 1:49 AM DEVELOPMENT ADMINISTRATOR Gender Identity Not on file Sexual Orientation Not on file documented as of this encounter Miscellaneous Notes * Telephone Encounter - Joanna Mckeon RN - 04/04/2025 4:07 PM CDT Spoke with pt, advised that she will be able to drive to and from her CT scheduled for tomorrow. Ptverbalizes understanding. * Telephone Encounter - Glenda Ortega - 04/04/2025 3:37 PM CDT Pt requesting a call back to discuss whether or not she needs a ride to her appt tomorrow at thank you Contact: documented in this encounter Plan of Treatment Not on file documented as of this encounter Visit Diagnoses Not on filedocumented in this encounter Care Teams Power Line Installer Relationship Specialty Start Date End Date Shorty Nicole MD PCP - General Family Medicine 07/02/22 Luz Maria Henderson, PT Physical Therapist Physical Therapy 03/17/22 documented as of this encounter
--- OUTSIDE RECORDS SUMMARY | 2025-04-05 14:57 | XMS_ITS | Encounter Summary ---
Author Organization [facility] Address [address] [place] [address] Care Team Providers Care Jig Grinder Name Role Phone Augusto Hanna MD Primary Care Provider [phone] Encounter Details Date Type Department Care Team (Late st Contact Info) Description 05/04/2007 Outpatient Historical [facility] Internal Medicine [address] [address] Augusto Hanna MD [address] [place] [phone] Social History Tobacco Use Types Packs/Day Years Used Date Smoking Tobacco: Never Assessed Comments Unknown Sex and Gender Information Value Date Recorded Sex Assigned at Not on file Legal Sex Female 3:39 AM INSPECTOR OUTSIDE PRODUCTION Gender Identity Not on file Sexual Orientation Not on file documented as of this encounter Last Filed Vital Signs Vital Sign Reading Time Taken Comments Blood Pressure 128/80 05/04/2007 4:30 PM CDT Pulse - - Temperature - - Respiratory Rate - - Oxygen Saturation - - Inhaled Oxygen Concentration - - Weight 113.4 kg (250 lb) 05/04/2007 4:30 PM CDT Height - - Body Mass Index 42.25 10/17/2003 3:45 PM INSPECTOR OUTSIDE PRODUCTION documented in this encounter Plan of Treatment Not on file documented as of this encounter Visit Diagnoses Not on filedocumented in this encounter Care Teams Jig Grinder Relationship Specialty Start Date End Date Augusto Hanan MD PCP - General 06/07/08 01/23/22 documented as of this encounter
--- OUTSIDE RECORDS SUMMARY | 2025-04-05 14:57 | XMS_ITS | Encounter Summary ---
Author Organization [facility] Address [address] [place] [address] Care Team Providers Care Grades 1 Through 6 Teacher Name Role Phone Augusto Hanna MD Primary Care Provider [phone] Encounter Details Date Type Department Care Team (Late st Contact Info) Description 04/16/2006 Outpatient [facility] Internal Medicine [address] [address] Augusto Hanna MD [address] [place] [phone] Social History Tobacco Use Types Packs/Day Years Used Date Smoking Tobacco: Never Assessed Comments Unknown Sex and Gender Information Value Date Recorded Sex Assigned at Not on file Legal Sex Female 3:39 AM THERAPIST PHYS Gender Identity Not on file Sexual Orientation Not on file documented as of this encounter Last Filed Vital Signs Vital Sign Reading Time Taken Comments Blood Pressure 114/70 04/16/2006 2:45 PM CDT Pulse - - Temperature - - Respiratory Rate - - Oxygen Saturation - - Inhaled Oxygen Concentration - - Weight 116.6 kg (257 lb) 04/16/2006 2:45 PM CDT Height - - Body Mass Index 43.43 10/17/2003 3:45 PM THERAPIST PHYS documented in this encounter Plan of Treatment Not on file documented as of this encounter Visit Diagnoses Not on filedocumented in this encounter Care Teams Grades 1 Through 6 Teacher Relationship Specialty Start Date End Date Augusto Hanna MD PCP - General 06/07/08 01/23/22 documented as of this encounter
--- OUTSIDE RECORDS SUMMARY | 2025-04-05 14:57 | XMS_ITS | Encounter Summary ---
Author Organization [facility] Address [address] [place] [address] Care Team Providers Care Site Manager Name Role Phone Augusto Hanna MD Primary Care Provider [phone] Encounter Details Date Type Department Care Team (Late st Contact Info) Description 12/03/2007 Orders Only [facility] Internal Medicine [address] [address] Augusto Hanna MD [address] [place] [phone] Social History Tobacco Use Types Packs/Day Years Used Date Smoking Tobacco: Never Assessed Comments Unknown Sex and Gender Information Value Date Recorded Sex Assigned at Not on file Legal Sex Female 3:39 AM REVENUE TAX SPECIALIST Gender Identity Not on file Sexual Orientation Not on file documented as of this encounter Progress Notes * Augusto Hanna MD - 02/16/2008 3:20 PM CDT WHO TOOK THE CALL: Augusto Hanna M TIME:11:43 am * Augusto Hanna MD - 02/16/2008 3:20 PM CDT WEIGHT: 248lbs BLOOD PRESSURE: 120/84 Right Arm Sitting ( large cuff) TEMPERATURE: 36.83??c Oral NURSE NAME: Mayra Rutherford R CHIEF COMPLAINT Patient complains of cough, head congestion, chest congestion, sore throat. HISTORY: HISTORY: 272.4-HYPERLIPIDEMIA The patient is somewhat compliant with the low saturated fat diet. 401.9-HYPERTENSION, UNSPECIFIED The patient is tolerating the medication. 466.0-BRONCHITIS ACUTE 2 weeks cough congestion ears full sore throat 703.0-DISEASES OF NAIL unchanged 715.90-OSTEOARTHROSIS UNSPECIFIED The arthritis is unchanged. 780.57-SLEEP APNEA The patient's sleep apnea has not changed. ROS: ENDOCRINE: No heat or cold intolerance, no excessive thirst. CARDIAC: No chest pain, palpitations, orthopnea, dyspnea on exertion, or paroxysmal nocturnal dyspnea. RESPIRATORY: HAS A COUGH. : No frequency, urgency, hematuria or dysuria. GI: No abdominal pain, nausea, vomiting, diarrhea, constipation, melena, or hematochezia. PAST MEDICAL HISTORY: reviewed FAMILY HISTORY: brother oct? SOCIAL HISTORY: TOBACCO USE: Has no significant smoking history. DISCUSSED SMOKING: neg. ALCOHOL: Does not give any significant history of alcohol usage. PHYSICAL EXAMINATION: CONSTITUTIONAL: GENERAL APPEARANCE: Healthy appearing patient in no distress. EARS, NOSE, MOUTH AND THROAT: EARS: EFFUSION PRESENT BILATERALLY, TYMPANIC MEMBRANES INFLAMED BILATERALLY. ORAL: OROPHARYNX ERYTHEMATOUS. NECK/THYROID: Trachea midline. No thyroid enlargement, tenderness, [...] No induration, obvious subcutaneous nodules or tightening. right foot onychomycosis lg toe ASSESSMENT/PLAN: 272.4-HYPERLIPIDEMIA recheck lab 466.0-BRONCHITIS ACUTE rx MEDICATIONS: LEVAQUIN ORAL TABLET 500 MG, 1 Every Day, 10 Dispensed, status: NEW PRESCRIPTION, 12/03/2007. ADVAIR DISKUS INHALATION MISCELLANEOUS 250-50 MCG/DOSE, 1 Two Times A Day, 2 Dispensed, status: NEWPRESCRIPTION, 12/03/2007. 724.5-BACK PAIN stable 790.5-ABNORMAL LIVER ENZYMES recheck lab 493.90-ASTHMA UNSPECIFIED rx as above 790.21-ABNORMAL FASTING BLOOD GLUCOSE discussed diet recheck lab LAB ORDERS: Order number: [id number] Test Ordered: COMPREHENSIVE METABOLIC PANEL & GFR 1112 Order number: [id number] Test Ordered: HEMOGLOBIN A1C 1814 Order number: [id number] Test Ordered: LIPID PANEL 1078 PREVENTIVE COUNSELING The patient was counseled regarding diet, regular sustained exercise for at least 30 minutes 3-4 times per week. Patient Education: Risks, benefits, and possible side effects of medication(s) were reviewed with the patient. The patient was allowed to ask questions to stated satisfaction. RETURN VISIT : Instructed to call if not improving. Electronically Signed by: Augusto Hanna MD on December 03, 2007 documented in this encounter Plan of Treatment Not on file documented as of this encounter Visit Diagnoses Not on filedocumented in this encounter Care Teams Site Manager Relationship Specialty Start Date End Date Augusto Hanna MD PCP - General 06/07/08 01/23/22 documented as of this encounter
--- OUTSIDE RECORDS SUMMARY | 2025-04-05 14:57 | XMS_ITS | Referral Summary ---
Author Organization [facility] [address] [place] [address] [place] [phone] Care Team Providers Care Agricultural Equipment Operator Name Role Phone Maximus Hendersonkat Fregoso PT Unavailable Shorty Ham MD Primary Care Provider [phone] Encounters Date Type Department Care Team Description 04/04/2025 Telephone [facility] Cardiology [address] [place] [address] [address] [place] [phone] Amy Bar MD 03/29/2025 Telephone [facility] Cardiology [address] [place] [address] [place] [phone] Amy Bar MD 03/27/2025 1:00 PM CDT Ancillary Procedure [facility] Cardiology [address] [place] [address] [place] [phone] Chronic combined systolic and diastolic CHF (congestive heart failure) (HCC); Coronary artery disease involving [place] coronary artery of [place] heart without angina pectoris; Mitral valve insufficiency and aortic valve insufficiency; Non-ischemic cardiomyopathy (HCC) 03/14/2025 Results Follow-Up [facility] Cardiology at [address] [place] [address] Amy Bar MD XR Chest Pa Lateral 2 Views, Pro B-type natriuretic peptide, Transthoracic Echo (TTE) Complete W Doppler/CF 03/13/2025 12:16 PM CDT - 03/13/2025 11:59 PM CDT Hospital Encounter [facility] [address] [place] [address] Chronic combined systolic and diastolic CHF (congestive heart failure) (HCC) Discharge Disposition: Discharge to home or self care 03/13/2025 12:15 PM CDT Lab [facility] Outpatient Lab at [address] [phone] 03/13/2025 12:15 PM CDT Ancillary Procedure [facility] Imaging at [address] [phone] Cough, unspecified type 03/13/2025 11:00 AM CDT Office Visit [facility] Cardiology at [address] [place] [phone] Amy Bar MD Cough, unspecified type (Primary Dx); Chronic combined systolic and diastolic CHF (congestive heart failure) (HCC); Coronary artery disease involving [place] coronary artery of [place] heart without angina pectoris; Hypertension associated with diabetes (HCC); Mitral valve insufficiency and aortic valve insufficiency; Non-ischemic cardiomyopathy (HCC) 02/03/2025 Telephone [facility] Primary Care at [address] [place] [address] Shorty Nicole MD Medical Question/Miscellaneous from Last 3 Months Allergies Active Allergy Reactions Criticality Noted Date [...] within 12 hours or as directed by MD. 14 patch 02/23/20 24 026 Active HYDROcodone-aceta minophen (NORCO) 5-325 mg per tabletIndications :Pain Take 1 tablet by mouth every 6 (six) hours as needed for pain for up to 8 doses 8 tablet 02/23/20 24 Active atorvastatin (LIPITOR) 20 mg tabletIndications :Coronary artery disease involving [place] coronary artery of [place] heart without angina pectoris Take 1 tablet [...] BY MOUTH THREE TIMES DAILY 270 capsule 12/25/19 25 025 Discontinued Active Problems Problem Noted Date Diagnosed Date Annual physical exam 05/11/2024 Assessment & Plan (05/11/2024 11:49 AM CDT): Discussed lifestyle modifications, diet and exercise. Routine blood work ordered/reviewed today. Yearly vision and dental examinations. Anxiety and depression 06/30/2023 Assessment & Plan (08/25/2023 1:17 PM JELLY FILTER TENDER): Not at goal at thsi time Will increase wellbutrin to 200 mg bid Assessment & Plan (06/30/2023 3:04 PM CDT): Not at goal at this time Continue duloxetine Worse since the passing of a friend recently Start wellbutrin 150 mg bid Diabetic polyneuropathy asso ciated with type 2 diabetes mellitus 01/01/2023 Assessment & Plan (11/14/2024 12:02 PM JELLY FILTER TENDER): Stable - doing well with gabapentin 300 mg tid Continue current regimen Contrl sugars well Discussed other options Assessment & Plan (01/01/2023 11:52 AM CDT): Stable - doing well with gabapentin 300 mg tid Continue current regimen Type 2 diabetes mellitus wit hout complication, without long-term current use of insulin 07/02/2022 Assessment & Plan (11/14/2024 11:50 AM JELLY FILTER TENDER): Lab Results Component Value Date HGBA1C 6.7 [...] (05/28/2022): Added automatically from request for surgery [id number] Class 1 obesity due to exces s calories with serious comorbidity and body mass index (BMI) of 32.0 to 32.9 in adult 12/26/2021 Assessment & Plan (11/14/2024 12:04 PM JELLY FILTER TENDER): Wt Readings from Last 3 Encounters: 11/14/24 [...] goal BMI Readings from Last 3 Encounters: 09/28/22 35.51 kg/m 06/11/22 35.34 kg/m 06/06/22 35.36 [...] medication provided. Coronary artery disease invo lving [place] coronary artery of [place] heart without angina pectoris 04/02/2021 Assessment & [...] is followed [place] Dr. Bar (cardio[place] [facility] As of now, condition is stable. EF has improved. Continues Coreg, Lasix 20 mg qd, Entresto, and Spironolactone 25 mg every day . \continue jardiance 25 mg qd Assessment & Plan (08/25/2023 1:19 PM JELLY FILTER TENDER): Patient is followed by Dr. Bar (cardio) [place] and [facility] As of now, condition is stable. EF [...] she had lumbar imaging in the summer of 2020 through [facility] that showed she had severe lumbar OA and 2 bulging discs. Pt experiences pain constantly, she has been on tramadol in the past. She currently takes otc Tylenol. Will get records from [place] and refer patient to pain management. Hypertension associated with diabetes 10/17/2003 Assessment & Plan (11/14/2024 12:05 PM JELLY FILTER TENDER): BP Readings from Last 3 Encounters: 11/14/24 [...] day Assessment & Plan (08/25/2023 1:18 PM JELLY FILTER TENDER): BP Readings from Last 3 Encounters: 08/25/23 [...] 05/11/2024 Assessment & Plan (08/25/2023 1:18 PM JELLY FILTER TENDER): Lab Results Component Value Date HGBA1C 6.0 [...] Gabapentin. Eye exam appt made for patient. Immunizations Immunization Administration Dates Next Due Influenza, Quadrivalent, Carmen l Culture-based MDCK, Preservative Free, Antibiotic Free, Intramuscular 09/17/2021 Influenza, Quadrivalent, Spl it, Preservative Free, Intramuscular 06/17/2023,07/02/2022,07/03/2019 Influenza, Split 10/24/2013 Influenza, Trivalent, Preser vative Free, Intramuscular 06/22/2024 Influenza, Unspecified 09/10/2021 Pfizer SARS-CoV-2 Monovalent Vaccination (12+ Yrs) PURPLE 09/17/2021,12/26/2020,12/04/2020 Pneumococcal Conjugate Pcv20 01/01/2023 Pneumococcal Polysaccharide PPV23 02/10/2018,09/2010 Tdap 10/16/2009 Social History Tobacco Use Types Packs/Day Years [...] on file Legal Sex Female 1:49 AM JELLY FILTER TENDER Gender Identity Not on file Sexual Orientation Not on file Last Filed Vital Signs Vital Sign Reading Time Taken Comments Blood Pressure 126/72 03/13/2025 11:02 AM CDT Pulse 73 03/13/2025 11:02 AM CDT Temperature 36.4 C (97.5 F) 07/02/2022 2:36 PM CDT Respiratory Rate 16 11/14/2024 11:34 AM JELLY FILTER TENDER Oxygen Saturation 98% 03/13/2025 11:02 AM CDT Inhaled Oxygen Concentration - - Weight 89.8 kg (198 lb) 03/13/2025 11:02 AM CDT Height 162.6 cm (5' 4) 03/13/2025 11:02 AM CDT Body Mass Index 33.99 03/13/2025 11:02 AM CDT Plan of Treatment Not on file Procedures Procedure Name Priority Date/Time Associated Diagnosis Comments TRANSTHORACIC ECHO (TTE) COMPLETE W DOPPLER/CF WO CONTRAST Routine 03/27/2025 2:15 PM CDT Chronic combined systolic and diastolic CHF (congestive heart failure) (HCC) Coronary artery disease involving [place] coronary artery of [place] heart without angina pectoris Mitral valve insufficiency [...] 10:57 AM CDT Coronary artery disease involving [place] coronary artery of [place] heart without angina pectoris HEPATITIS C ANTIBODY Routine 05/11/2024 12:50 PM CDT Need for hepatitis B screening test EGFR Routine 05/11/2024 12:50 PM CDT Type 2 diabetes mellitus with hyperglycemia, unspecified whether jail insulin use (HCC) POCT HEMOGLOBIN A1C Routine 05/11/2024 11:46 AM CDT Type 2 diabetes mellitus with hyperglycemia, unspecified whether jail insulin use (HCC) ALBUMIN CREATININE RATIO, URINE [...] PM CDT Narrative 03/27/2025 4:12 PM CDT [facility] Cardiology [address] [place] [address], [place] [address] [address] [facility] [address], [place] [address] P:[phone] P:[phone] Echocardiographic Report Patient Name: JACEK TRIPP A : 1965 Study Date: 03/27/2025 1:09:19 PM Gender: F Concert Promoter: Marifer Fields)(CT), [facility] Location: [place] Ref Provider: AMY BAR Height(Cm): 163 BSA: 2.02 Weight(Kg): 89.8 Heart Rate: 52 BP: 126 / 72 Quality: Good Order Provider: AMY BAR PROCEDURES: Echocardiographic Report: Transthoracic echocardiogram with complete 2D, M-Mode, and color Doppler examination. With Strain Analysis. INDICATIONS: I50.42 Chronic combined systolic (congestive) and diastolic (congestive) heart failure, I25.10 Atherosclerotic heart disease of [place] coronary artery without angina pectoris, I08.0 Rheumatic [...] FINDINGS: Interpretation Site: Exam was interpreted at [facility]. Left Ventricle: Ejection fraction is measured [...] Procedure Note Momo Louis MD - 03/27/2025 [facility] Cardiology [address] [facility] [place] [address], [place] [address] [address] [facility] [address], [place] [address] P:[phone] P:[phone] Echocardiographic Report Patient Name: JACEK TRIPP A : 1965 Study Date: 03/27/2025 1:09:19 PM Gender: F Concert Promoter: Marifer Fields)(CT), [facility] Location: [facility] Provider: AMY BAR Height(Cm): 163 BSA: 2.02 Weight(Kg): 89.8 Heart Rate: 52 BP: 126 / 72 Quality: Good Order Provider: AMY BAR PROCEDURES: Echocardiographic Report: Transthoracic echocardiogram with complete 2D, M-Mode, and color Dopplerexamination. With Strain Analysis. INDICATIONS: I50.42 Chronic combined systolic (congestive) and diastolic (congestive)heart failure, I25.10 Atherosclerotic heart disease of [place] coronary artery withoutangina pectoris, I08.0 Rheumatic disorders [...] FINDINGS: Interpretation Site: Exam was interpreted at [facility]. Left Ventricle: Ejection fraction is measured [...] Dr. Momo Louis 03/27/2025 4:11:46 PM CDT us Amy Bar MD CV ECHO PROCEDURES Final [...] Ian Spear M.D., JR T: Report ID: [id number] Reading Location: [id number] Procedure Note Ian Spear MD - 03/13/2025 EXAM DESCRIPTION: XR [...] Ian Spear M.D., JR T: Report ID: [id number] Reading Location: [id number] us Amy Bar MD IMG XR PROCEDURES Final [...] Heart J. 2006:27:330-337. 2. Peri RW, Estevan WOOD. J. AM Lidia Cardiol: Cardiovasc Imag. 2009;2: 216- 225. Interpretive Data Last Revised Date: 2018. Blood 03/13/2025 12:1 6 PM CDT 03/13/2025 6:07 PM CDT Amy Bar MD LAB BLOOD ORDERABLES Aide l Result [facility] [address] [address] Department of Laboratories [place] [id number] * (ABNORMAL) POCT lipid panel (03/13/2025 10:57 [...] 0 PM CDT 05/11/2024 1:14 PM CDT us Shorty Nicole MD LAB BLOOD ORDERABLES Final Resul t TONIA [facility] Department [place] [address] * Hepatitis C antibody Blood (05/11/2024 12:50 PM CDT) Hep C Ab Nonreactive Nonreactive Comment: Interpretive [...] last revised on 2019. Testing performed by: [facility], [address] [place] [address], [place]., [address] Blood 05/11/2024 12:5 0 PM CDT 05/11/2024 3:29 PM CDT us Shorty Nicole MD LAB MICROBIOLOGY - GENERAL ORDER DELANEY Edited Result - Final [facility] ([place]) 1 [facility] [place] [address] * POCT hemoglobin A1c (05/11/2024 11:46 AM CDT) Pathologist [facility] Hemoglobin A1C, POC 6.7 % Capillary blood 05/11/2024 1 1:46 AM CDT us Shorty Nicole MD POINT OF CARE TEST ORDERABLES Fi nal Result * Albumin Creatinine Ratio, Urine (06/17/2023 11:18 AM CDT) [facility] Albumin Ur <12.0 mg/L [facility] AM H ([place]) Comment: Interpretive Data No reference range established. Current interpretive data was last revised 2019. Testing performed by: [facility], [address] [place] [address]., [address] Creatinine Ur 59.2 mg/dL [facility] ([place]) Comment: Interpretive Data No reference range established. Current interpretive data was last revised 2019. Testing performed by: [facility], [address] [place] [address]., [address] Albumin Creatinine Ratio, Ur <20 1 - 29 mg/g [facility] ([place]) Comment:Testing performed by : [facility], [address] [place] [address]., [address] Urine 06/17/2023 11:1 8 AM CDT 06/17/2023 10:08 PM CDT us Shorty Nicole MD LAB URINE ORDERABLES Final Resul t [facility] ([place]) 1 [facility] [place] [address] * Pap and HPV, reflex to HPV Genotypes (04/21/2023 2:37 PM CDT) Pathologist [facility] CLINICAL INFORMATION: [facility] Comment: Routine exam Postmenopausal LMP [facility] Comment:POST MENOPAUSAL Previous Pap [facility] Comment:NONE GIVEN Prev. Bx [facility] Comment:NONE GIVEN SOURCE: [facility] Comment:Cervix, Endocervix Pap, specimen adequacy [facility] Comment: Satisfactory for evaluation. Endocervical/transformation zone component present. HPV interp [facility] Comment: Cytology Results: Negative for intraepithelial lesion or malignancy. Instructor Product Inspection Que [facility] Comment: DEDRICK, CT(ASCP) CT screening location: [place] [address] Administration [place] [address] Comment [facility] Comment: EXPLANATORY NOTE: The Pap is a [...] High Risk E6/E7 Not Detected NOT DETECTED [place] [facility] Comment: Not Detected High Risk HPV types (16,18,31,33,35,39,45,51,52, 56,58,59,66,68) were not detected. Other HPV types which cause anogenital lesions may be present. The significance of the other types of HPV in malignant processes has not been established. Methodology: Real Time PCR 04/21/2023 2:37 PM CDT 04/22/2023 2:13 AM CDT Lucia Clark RACE RELATIONS ADVISER LAB CYTOLOGY ORDERABLES Final Re sult [facility] [place] [address] [address] [place] [address] [place] [address] [place] [address] * COLONOSCOPY (06/11/2022 7:10 AM CDT) Anatomical Region Laterality Modality Other Narrative Procedure Note Rosibel Sharp MD - 06/11/2022 7:10 AM CDT [facility] Patient Name: Jacek Tripp Procedure Date: 06/11/2022 7:10 AM Date of : 1965 Admit Type: Outpatient Age: 56 Gender: Female Attending MD: Rosibel Sharp M.D. Room: [facility] ENDOSCOPY ROOM 1 Note Status: Finalized Patient [...] under direct vision. The Pediatric Colonoscope PCF-H190L [id number] was introducedthrough the anus and advanced to [...] The hemorrhoids were medium-sized. Electronically signed by Rosibel Sharp M.D. Rosibel Sharp M.D. 06/11/2022 8:51:40 AM Number of Addenda: 0 Note Initiated On: 06/11/2022 7:10 AM Procedure Code(s): --- Professional --- 11022, Colonoscopy, flexible; with biopsy, single or multiple Diagnosis Code(s): --- Professional --- Z80.0, Family history of malignant neoplasm of digestive organs K64.8, Other hemorrhoids D12.0, Benign neoplasm of cecum D12.4, Benign neoplasm of descending colon CPT copyright 2020 [employer]. All rights reserved. The codes documented in this report are preliminary and upon director and professor reviewmay be revised to meet current compliance requirements. Recognized by the [employer] for promoting quality [...] been no suspicious interval change. Brittney Yusuf RACE RELATIONS ADVISER IMG MAMMO PROCEDURES Final Resul t from Last 3 Months or Most Recently Relevant to Health Maintenance Insurance [facility] Advance Directives For more information, please contact: [phone] * Full Code (Latest Code Status on File) Date Activated Date Inactivated Comments 06/11/2022 7:25 AM 06/11/2022 1:35 PM * Full Code Date Activated Date Inactivated Comments 06/11/2022 7:25 AM 06/11/2022 7:25 AM * Full Code Date Activated Date Inactivated Comments 05/27/2022 10:05 AM 05/27/2022 4:02 PM * Full Code Date Activated Date Inactivated Comments 05/27/2022 10:05 AM 05/27/2022 10:05 AM Care Teams Agricultural Equipment Operator Relationship Specialty Start Date End Date Shorty Nicole MD PCP - General Family Medicine 07/02/22 Luz Maria Henderson, PT Physical Therapist Physical Therapy 03/17/22
--- OUTSIDE RECORDS SUMMARY | 2025-04-05 14:57 | XMS_ITS | Encounter Summary ---
Author Organization [facility] Address [address] [place] [address] Care Team Providers Care Shackler Name Role Phone Augusto Hanna MD Primary Care Provider [phone] Encounter Details Date Type Department Care Team (Late st Contact Info) Description 09/21/2006 Orders Only [facility] Internal Medicine [address] [address] Augusto Hanna MD [address] [place] [phone] Social History Tobacco Use Types Packs/Day Years Used Date Smoking Tobacco: Never Assessed Comments Unknown Sex and Gender Information Value Date Recorded Sex Assigned at Not on file Legal Sex Female 3:39 AM SHARK BIOLOGIST Gender Identity Not on file Sexual Orientation Not on file documented as of this encounter Progress Notes * Augusto Hanna MD - 07/19/2008 3:14 AM CDT TIME:05:40 pm PATIENT`S HOME PHONE: PATIENT`S WORK PHONE: PATIENT`S INSURANCE: [facility] [employer] WHO TOOK THE CALL: Mayra Rutherford R GENERAL INFORMATION WHO CALLED: Pharmacy called. PHARMACY NUMBER: [phone] SECTION 1: Albuterol changing formulation. Change to Albuterol HFA, Proair or Xopenex? REQUESTED ACTION tashia 09/21/06 at 05:41 pm: MEDICATION REQUEST: MEDICATION REQUEST: Patient requests a change in current medication. DOCTOR`S RESPONSE: dinah 09/22/06 at 08:35 am MEDICATIONS: ALBUTEROL INHALATION AEROSOL SOLUTION 90 MCG/ACT, 2 Four Times A Day, As Needed, 1 Dispensed, status: DISCONTINUED, 09/21/2006. ALBUTEROL SULFATE HFA INHALATION AEROSOL SOLUTION 108 MCG/ACT, 2 Four Times A Day, As Needed, 1 Dispensed, 1 Fills, status: NEW PRESCRIPTION, 09/21/2006. FINAL ACTION: pamela 09/22/06 at 05:23 pm Called pharmacy at 09/22/06 at 05:23 pm. Electronically Signed by: Petty Ramirez on Friday, September 22, 2006 documented in this encounter Plan of Treatment Not on file documented as of this encounter Visit Diagnoses Not on filedocumented in this encounter Care Teams Shackler Relationship Specialty Start Date End Date Augusto Hanna MD PCP - General 06/07/08 01/23/22 documented as of this encounter
--- OUTSIDE RECORDS SUMMARY | 2025-04-05 14:57 | XMS_ITS | Encounter Summary ---
Author Organization [facility] Address [address] [place] [address] Care Team Providers Care Materials Management Manager Name Role Phone Augusto Hanna MD Primary Care Provider [phone] Encounter Details Date Type Department Care Team (Late st Contact Info) Description 01/08/2006 Outpatient [facility] Internal Medicine [address] [address] Augusto Hanna MD [address] [place] [address] Social History Tobacco Use Types Packs/Day Years Used Date Smoking Tobacco: Never Assessed Comments Unknown Sex and Gender Information Value Date Recorded Sex Assigned at Not on file Legal Sex Female 3:39 AM EXPERT WITNESS Gender Identity Not on file Sexual Orientation Not on file documented as of this encounter Last Filed Vital Signs Vital Sign Reading Time Taken Comments Blood Pressure 112/50 01/08/2006 4:15 PM CDT Pulse - - Temperature - - Respiratory Rate - - Oxygen Saturation - - Inhaled Oxygen Concentration - - Weight 118.8 kg (262 lb) 01/08/2006 4:15 PM CDT Height - - Body Mass Index 44.28 10/17/2003 3:45 PM EXPERT WITNESS documented in this encounter Plan of Treatment Not on file documented as of this encounter Visit Diagnoses Not on filedocumented in this encounter Care Teams Materials Management Manager Relationship Specialty Start Date End Date Augusto Hanna MD PCP - General 06/07/08 01/23/22 documented as of this encounter
--- OUTSIDE RECORDS SUMMARY | 2025-04-05 14:58 | XMS_ITS | Encounter Summary ---
Author Organization [facility] Address [address] [place] [address] Care Team Providers Care Medical Supply Technician Name Role Phone Augusto Hanna MD Primary Care Provider [phone] Encounter Details Date Type Department Care Team (Late st Contact Info) Description 09/30/2004 Outpatient Historical [facility] Maternal and Ground Floor [address] [place] [address] Kamar Ayoub MD NO ADDRESS ON FILE Social History Tobacco Use Types Packs/Day Years Used Date Smoking Tobacco: Never Assessed Comments Unknown Sex and Gender Information Value Date Recorded Sex Assigned at Not on file Legal Sex Female 3:39 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
--- OUTSIDE RECORDS SUMMARY | 2025-04-05 14:58 | XMS_ITS | Encounter Summary ---
Author Organization [facility] Address [address] [place] [address] Care Team Providers Care Control Panel Operator Crude Unit Name Role Phone Augusto Hanna MD Primary Care Provider Encounter Details Date Type Department Care Team (Late st Contact Info) Description 10/22/2004 Outpatient Historical [facility] Maternal and Ground Floor [address] [address] Kamar Ayoub MD NO ADDRESS ON FILE Social History Tobacco Use Types Packs/Day Years Used Date Smoking Tobacco: Never Assessed Comments Unknown Sex and Gender Information Value Date Recorded Sex Assigned at Not on file Legal Sex Female 3:39 AM TRESTLEMAN Gender Identity Not on file Sexual Orientation Not on file documented as of this encounter Plan of Treatment Not on file documented as of this encounter Visit Diagnoses Not on filedocumented in this encounter Care Teams Control Panel Operator Crude Unit Relationship Specialty Start Date End Date Augusto Hanna MD PCP - General 06/07/08 01/23/22 documented as of this encounter
--- OUTSIDE RECORDS SUMMARY | 2025-04-05 14:58 | XMS_ITS | Encounter Summary ---
Author Organization [employer] Address [address] [place] [address] Care Team Providers Care Hand Molder And Caster Name Role Phone Augusto Hanna MD Primary Care Provider [phone] Encounter Details Date Type Department Care Team (Latest Contact Info) Description 09/27/2004 Inpatient Historical HIS PATIENT IN A BED Kt Eason MD [address] [facility] [address] [place] [address] PROLONG RUPT MEMB-DELIVERED (Primary Dx) Social History Tobacco Use Types Packs/Day Years Used Date Smoking Tobacco: Never Assessed Comments Unknown Sex and Gender Information Value Date Recorded Sex Assigned at Not on file Legal Sex Female 3:39 AM LICENSED MORTGAGE LOAN OFFICER Gender Identity Not on file Sexual Orientation Not on file documented as of this encounter Plan of Treatment Not on file documented as of this encounter Procedures Procedure Name Priority Date/Time Associated Diagnosis Comments CBC WITH DIFFERENTIAL Routine 10/23/2004 6:35 AM LICENSED MORTGAGE LOAN OFFICER CBC WITH DIFFERENTIAL Routine 10/23/2004 6:35 AM LICENSED MORTGAGE LOAN OFFICER C-REACTIVE PROTEIN Routine 10/23/2004 6: 35 AM LICENSED MORTGAGE LOAN OFFICER CBC WITH DIFFERENTIAL Routine 10/22/2004 2:39 PM LICENSED MORTGAGE LOAN OFFICER CBC WITH DIFFERENTIAL Routine 10/22/2004 2:39 PM LICENSED MORTGAGE LOAN OFFICER CBC WITH DIFFERENTIAL Routine 10/18/2004 1:14 PM LICENSED MORTGAGE LOAN OFFICER CBC WITH DIFFERENTIAL Routine 10/18/2004 1:14 PM LICENSED MORTGAGE LOAN OFFICER CBC WITH DIFFERENTIAL Routine 10/16/2004 5:00 AM LICENSED MORTGAGE LOAN OFFICER CBC WITH DIFFERENTIAL Routine 10/16/2004 5:00 AM LICENSED MORTGAGE LOAN OFFICER CBC WITH DIFFERENTIAL Routine 10/15/2004 7:00 PM LICENSED MORTGAGE LOAN OFFICER CBC WITH DIFFERENTIAL Routine 10/15/2004 7:00 PM LICENSED MORTGAGE LOAN OFFICER GLUCOSE TOLERANCE, 3 HR Routine 10/09/2004 7:27 AM LICENSED MORTGAGE LOAN OFFICER GLUCOSE TOLERANCE, 2 HR Routine 10/09/2004 6:24 AM LICENSED MORTGAGE LOAN OFFICER GLUCOSE TOLERANCE, 1 HR Routine 10/09/2004 5:19 AM LICENSED MORTGAGE LOAN OFFICER GLUCOSE TOLERANCE, FASTING Routine 10/09/2004 4:12 AM LICENSED MORTGAGE LOAN OFFICER documented in this encounter Results * (ABNORMAL) CBC WITH DIFFERENTIAL (10/23/2004 6:35 AM LICENSED MORTGAGE LOAN OFFICER) NEUTROPHILS 82(H) 45 - 70 % INTERFAC E SYSTEM LYMPHOCYTES 10(L) 16 - 45 % INTERFAC E SYSTEM MONOCYTES 6 3 - 13 % INTERFACE SYSTEM EOSINOPHILS 2 0 - 7 % INTERFAC E SYSTEM BASOPHILS 0 0 - 2 % INTERFACE SYSTEM NEUTROPHIL ABSOLUTE 12.52(H) 1.90 - 7.00 K/uL INTERFACE SYSTEM LYMPHOCYTE ABSOLUTE 1.54 0.70 - 4.50 K/uL INTERFACE SYSTEM MONOCYTE ABSOLUTE 0.87 0.10 - 1.30 K/uL INTERFACE SYSTEM EOSINOPHIL ABSOLUTE 0.29 0.00 - 0.70 K/uL INTERFACE SYSTEM BASOPHILS ABSOLUTE 0.02 0.00 - 0.20 K/uL INTERFACE SYSTEM 10/23/2004 6:35 AM LICENSED MORTGAGE LOAN OFFICER us Kt Eason MD HEMATOLOGY ORDERABLES Final Result Performing Organization Address [facility] Phone Number INTERFACE SYSTEM Refer to clinic/hospital department * (ABNORMAL) CBC WITH DIFFERENTIAL (10/23/2004 6:35 AM LICENSED MORTGAGE LOAN OFFICER) WBC 15.2(H) 4.0 - 9.8 K/uL INTERFACE SYSTEM RBC 3.67(L) 3.90 - 4.90 M/uL INTERFACE SYSTEM HEMOGLOBIN 10.7(L) 11.8 - 14.8 g/dL INTERFACE SYSTEM HEMATOCRIT 32.8(L) 35.5 - 44.0 % INTERFACE SYSTEM MCV 89.4 82.0 - 99.0 fL INTERFACE SYSTEM MCH 29.2 27.2 - 32.6 pg INTERFACE SYSTEM MCHC 32.6 31.5 - 35.5 % INTERFACE SYSTEM RDW 13.8 11.5 - 14.5 % INTERFACE SYSTEM RDW-STDEV 44.6 37.1 - 48.7 fL INTERFACE SYSTEM PLATELETS 255 140 - 350 K/uL INTERFACE SYSTEM MPV 10.3 9.3 - 12.4 fL INTERFACE SYSTEM 10/23/2004 6:35 AM LICENSED MORTGAGE LOAN OFFICER Kt Eason MD HEMATOLOGY ORDERABLES Final Result Performing Organization Address [facility] Phone Number INTERFACE SYSTEM Refer to clinic/hospital department * (ABNORMAL) C-REACTIVE PROTEIN (10/23/2004 6:35 AM LICENSED MORTGAGE LOAN OFFICER) Pathologist [facility] CRP 5.2(H) 0.0 - 0.8 mg/dL INTERFACE SYSTEM 10/23/2004 6:35 AM LICENSED MORTGAGE LOAN OFFICER Kt Eason MD CHEMISTRY ORDERABLES F inal Result Performing Organization Address [facility] Phone Number INTERFACE SYSTEM Refer to clinic/hospital department * (ABNORMAL) CBC WITH DIFFERENTIAL (10/22/2004 2:39 PM LICENSED MORTGAGE LOAN OFFICER) NEUTROPHILS 82(H) 45 - 70 % INTERFAC E SYSTEM LYMPHOCYTES 10(L) 16 - 45 % INTERFAC E SYSTEM MONOCYTES 6 3 - 13 % INTERFACE SYSTEM EOSINOPHILS 2 0 - 7 % INTERFAC E SYSTEM BASOPHILS 0 0 - 2 % INTERFACE SYSTEM NEUTROPHIL ABSOLUTE 12.22(H) 1.90 - 7.00 K/uL INTERFACE SYSTEM LYMPHOCYTE ABSOLUTE 1.52 0.70 - 4.50 K/uL INTERFACE SYSTEM MONOCYTE ABSOLUTE 0.93 0.10 - 1.30 K/uL INTERFACE SYSTEM EOSINOPHIL ABSOLUTE 0.25 0.00 - 0.70 K/uL INTERFACE SYSTEM BASOPHILS ABSOLUTE 0.02 0.00 - 0.20 K/uL INTERFACE SYSTEM 10/22/2004 2:39 PM LICENSED MORTGAGE LOAN OFFICER Kt Eason MD HEMATOLOGY ORDERABLES Final Result INTERFACE SYSTEM Refer to clinic/hospital department * (ABNORMAL) CBC WITH DIFFERENTIAL (10/22/2004 2:39 PM LICENSED MORTGAGE LOAN OFFICER) WBC 14.9(H) 4.0 - 9.8 K/uL INTERFACE SYSTEM RBC 3.72(L) 3.90 - 4.90 M/uL INTERFACE SYSTEM HEMOGLOBIN 10.8(L) 11.8 - 14.8 g/dL INTERFACE SYSTEM HEMATOCRIT 32.8(L) 35.5 - 44.0 % INTERFACE SYSTEM MCV 88.2 82.0 - 99.0 fL INTERFACE SYSTEM MCH 29.0 27.2 - 32.6 pg INTERFACE SYSTEM MCHC 32.9 31.5 - 35.5 % INTERFACE SYSTEM RDW 13.7 11.5 - 14.5 % INTERFACE SYSTEM RDW-STDEV 43.4 37.1 - 48.7 fL INTERFACE SYSTEM PLATELETS 254 140 - 350 K/uL INTERFACE SYSTEM MPV 10.5 9.3 - 12.4 fL INTERFACE SYSTEM 10/22/2004 2:39 PM LICENSED MORTGAGE LOAN OFFICER Kt Eason MD HEMATOLOGY ORDERABLES Final Result INTERFACE SYSTEM Refer to clinic/hospital department * (ABNORMAL) CBC WITH DIFFERENTIAL (10/18/2004 1:14 PM LICENSED MORTGAGE LOAN OFFICER) NEUTROPHIL ABSOLUTE 9.16(H) 1.90 - 7.00 K/uL INTERFACE SYSTEM LYMPHOCYTE ABSOLUTE 2.09 0.70 - 4.50 K/uL INTERFACE SYSTEM MONOCYTE ABSOLUTE 0.23 0.10 - 1.30 K/uL INTERFACE SYSTEM EOSINOPHIL ABSOLUTE 0.12 0.00 - 0.70 K/uL INTERFACE SYSTEM BASOPHILS ABSOLUTE 0.00 0.00 - 0.20 K/uL INTERFACE SYSTEM NEUTROPHILS, SEG 79(H) 45 - 70 % INT ERFACE SYSTEM LYMPHOCYTES 18 16 - 45 % INTERFAC E SYSTEM MONOCYTES 2(L) 3 - 13 % INTERFACE SYSTEM EOSINOPHILS 1 0 - 7 % INTERFAC E SYSTEM BASOPHILS 0 0 - 2 % INTERFACE SYSTEM PLATELET EST. Normal Normal INTERF SHAMA SYSTEM ANISOCYTOSIS Slight INTERFA CE SYSTEM POIKILOCYTES Slight INTERFA CE SYSTEM OVALOCYTES Slight INTERFACE SYSTEM REVIEWED ON SMEAR WBC & Plt Reviewed INTERFACE SYSTEM 10/18/2004 1:14 PM LICENSED MORTGAGE LOAN OFFICER Kt Eason MD HEMATOLOGY ORDERABLES Final Result Performing Organization Address City/[facility] de Phone Number INTERFACE SYSTEM Refer to clinic/hospital department * (ABNORMAL) CBC WITH DIFFERENTIAL (10/18/2004 1:14 PM LICENSED MORTGAGE LOAN OFFICER) WBC 11.6(H) 4.0 - 9.8 K/uL INTERFACE SYSTEM RBC 3.70(L) 3.90 - 4.90 M/uL INTERFACE SYSTEM HEMOGLOBIN 10.8(L) 11.8 - 14.8 g/dL INTERFACE SYSTEM HEMATOCRIT 32.8(L) 35.5 - 44.0 % INTERFACE SYSTEM MCV 88.6 82.0 - 99.0 fL INTERFACE SYSTEM MCH 29.2 27.2 - 32.6 pg INTERFACE SYSTEM MCHC 32.9 31.5 - 35.5 % INTERFACE SYSTEM RDW 13.1 11.5 - 14.5 % INTERFACE SYSTEM RDW-STDEV 42.3 37.1 - 48.7 fL INTERFACE SYSTEM PLATELETS 258 140 - 350 K/uL INTERFACE SYSTEM MPV 10.4 9.3 - 12.4 fL INTERFACE SYSTEM 10/18/2004 1:14 PM LICENSED MORTGAGE LOAN OFFICER Kt Eason MD HEMATOLOGY ORDERABLES Final Result Performing Organization Address City/[facility] Co de Phone Number INTERFACE SYSTEM Refer to clinic/hospital department * (ABNORMAL) CBC WITH DIFFERENTIAL (10/16/2004 5:00 AM LICENSED MORTGAGE LOAN OFFICER) NEUTROPHILS 77(H) 45 - 70 % INTERFAC E SYSTEM LYMPHOCYTES 17 16 - 45 % INTERFAC E SYSTEM MONOCYTES 6 3 - 13 % INTERFACE SYSTEM EOSINOPHILS 1 0 - 7 % INTERFAC E SYSTEM BASOPHILS 0 0 - 2 % INTERFACE SYSTEM NEUTROPHIL ABSOLUTE 7.08(H) 1.90 - 7.00 K/uL INTERFACE SYSTEM LYMPHOCYTE ABSOLUTE 1.54 0.70 - 4.50 K/uL INTERFACE SYSTEM MONOCYTE ABSOLUTE 0.51 0.10 - 1.30 K/uL INTERFACE SYSTEM EOSINOPHIL ABSOLUTE 0.11 0.00 - 0.70 K/uL INTERFACE SYSTEM BASOPHILS ABSOLUTE 0.01 0.00 - 0.20 K/uL INTERFACE SYSTEM 10/16/2004 5:00 AM LICENSED MORTGAGE LOAN OFFICER Ishmael Salazar MD HEMATOLOGY ORDERABLES Final R esult Performing Organization Address [facility] de Phone Number INTERFACE SYSTEM Refer to clinic/hospital department * (ABNORMAL) CBC WITH DIFFERENTIAL (10/16/2004 5:00 AM LICENSED MORTGAGE LOAN OFFICER) Pathologist [facility] WBC 9.3 4.0 - 9.8 K/uL INTERFACE SYSTEM RBC 3.63(L) 3.90 - 4.90 M/uL INTERFACE SYSTEM HEMOGLOBIN 10.5(L) 11.8 - 14.8 g/dL INTERFACE SYSTEM HEMATOCRIT 32.3(L) 35.5 - 44.0 % INTERFACE SYSTEM MCV 89.0 82.0 - 99.0 fL INTERFACE SYSTEM MCH 28.9 27.2 - 32.6 pg INTERFACE SYSTEM MCHC 32.5 31.5 - 35.5 % INTERFACE SYSTEM RDW 13.0 11.5 - 14.5 % INTERFACE SYSTEM RDW-STDEV 42.4 37.1 - 48.7 fL INTERFACE SYSTEM PLATELETS 231 140 - 350 K/uL INTERFACE SYSTEM MPV 10.4 9.3 - 12.4 fL INTERFACE SYSTEM 10/16/2004 5:00 AM LICENSED MORTGAGE LOAN OFFICER Ishmael Salazar MD HEMATOLOGY ORDERABLES Final R esult Performing Organization Address [facility] de Phone Number INTERFACE SYSTEM Refer to clinic/hospital department * (ABNORMAL) CBC WITH DIFFERENTIAL (10/15/2004 7:00 PM LICENSED MORTGAGE LOAN OFFICER) NEUTROPHIL ABSOLUTE 9.34(H) 1.90 - 7.00 K/uL INTERFACE SYSTEM LYMPHOCYTE ABSOLUTE 2.82 0.70 - 4.50 K/uL INTERFACE SYSTEM MONOCYTE ABSOLUTE 0.38 0.10 - 1.30 K/uL INTERFACE SYSTEM EOSINOPHIL ABSOLUTE 0.26 0.00 - 0.70 K/uL INTERFACE SYSTEM BASOPHILS ABSOLUTE 0.00 0.00 - 0.20 K/uL INTERFACE SYSTEM NEUTROPHILS, SEG 73(H) 45 - 70 % INT ERFACE SYSTEM LYMPHOCYTES 20 16 - 45 % INTERFAC E SYSTEM MONOCYTES 3 3 - 13 % INTERFACE SYSTEM EOSINOPHILS 2 0 - 7 % INTERFAC E SYSTEM BASOPHILS 0 0 - 2 % INTERFACE SYSTEM ATYPICAL LYMPHOCYTE 2 0 - 5 % INTERFACE SYSTEM PLATELET EST. Normal Normal INTERF SHAMA SYSTEM POIKILOCYTES Slight INTERFA CE SYSTEM POLYCHROMASIA Slight INTERF SHAMA SYSTEM BASOPHILIC STIPPLING Slight INTERFACE SYSTEM HYPOCHROMIA Slight INTERFAC E SYSTEM OVALOCYTES Slight INTERFACE SYSTEM 10/15/2004 7:00 PM LICENSED MORTGAGE LOAN OFFICER us Ishmael Salazar MD HEMATOLOGY ORDERABLES Final R esult INTERFACE SYSTEM Refer to clinic/hospital department * (ABNORMAL) CBC WITH DIFFERENTIAL (10/15/2004 7:00 PM LICENSED MORTGAGE LOAN OFFICER) Pathologist [facility] WBC 12.8(H) 4.0 - 9.8 K/uL INTERFACE SYSTEM RBC 2.72(L) 3.90 - 4.90 M/uL INTERFACE SYSTEM HEMOGLOBIN 7.9(AA) 11.8 - 14.8 g/dL INTERFACE SYSTEM Comment: Verified by repeat analysis. Results called to kurtis at 10/15/2004 7:33 PM and read back verified. HEMATOCRIT 23.8(AA) 35.5 - 44.0 % INTERFACE SYSTEM MCV 87.5 82.0 - 99.0 fL INTERFACE SYSTEM MCH 29.0 27.2 - 32.6 pg INTERFACE SYSTEM MCHC 33.2 31.5 - 35.5 % INTERFACE SYSTEM RDW 13.0 11.5 - 14.5 % INTERFACE SYSTEM RDW-STDEV 41.5 37.1 - 48.7 fL INTERFACE SYSTEM PLATELETS 340 140 - 350 K/uL INTERFACE SYSTEM MPV 10.0 9.3 - 12.4 fL INTERFACE SYSTEM 10/15/2004 7:00 PM LICENSED MORTGAGE LOAN OFFICER Ishmael Salazar MD HEMATOLOGY ORDERABLES Final R esult Performing Organization Address [facility] Phone Number INTERFACE SYSTEM Refer to clinic/hospital department * GLUCOSE TOLERANCE, 3 HR (10/09/2004 7:27 AM LICENSED MORTGAGE LOAN OFFICER) GLUCOSE, 3HR 175 mg/dL INTERFA CE SYSTEM 10/09/2004 7:27 AM LICENSED MORTGAGE LOAN OFFICER Kt Eason MD CHEMISTRY ORDERABLES F inal Result Performing Organization Address [facility] Phone Number INTERFACE SYSTEM Refer to clinic/hospital department * GLUCOSE TOLERANCE, 2 HR (10/09/2004 6:24 AM LICENSED MORTGAGE LOAN OFFICER) GLUCOSE, 2HR 253 mg/dL INTERFA CE SYSTEM 10/09/2004 6:24 AM LICENSED MORTGAGE LOAN OFFICER Kt Eason MD CHEMISTRY ORDERABLES F inal Result Performing Organization Address [facility] Phone Number INTERFACE SYSTEM Refer to clinic/hospital department * GLUCOSE TOLERANCE, 1 HR (10/09/2004 5:19 AM LICENSED MORTGAGE LOAN OFFICER) GLUCOSE, 1HR 211 mg/dL INTERFA CE SYSTEM 10/09/2004 5:19 AM LICENSED MORTGAGE LOAN OFFICER Kt Eason MD CHEMISTRY ORDERABLES F inal Result Performing Organization Address [facility] Phone Number INTERFACE SYSTEM Refer to clinic/hospital department * GLUCOSE TOLERANCE, FASTING (10/09/2004 4:12 AM LICENSED MORTGAGE LOAN OFFICER) GLUCOSE FASTING 109 mg/dL [employer]CE SYSTEM GLUCOSE TOLERANCE INTERP INTERFACE SYSTEM Comment: Based on 100 g. dose, GDM criteria: 2 or more specimens must meet or exceed the following: Fastin mg/dL 1 hour: 180 mg/dL 2 hour: 155 mg/dL 3 hour: 140 mg/dL 10/09/2004 4:12 AM LICENSED MORTGAGE LOAN OFFICER Kt Eason MD CHEMISTRY ORDERABLES F inal Result INTERFACE SYSTEM Refer to clinic/hospital department documented in this encounter Visit Diagnoses Diagnosis Delayed delivery after spontaneous or unspecified rupture of membranes, delivered- Primary documented in this encounter Care Teams Hand Molder And Caster Relationship Specialty Start Date End Date Augusto Hanna MD PCP - General 06/07/08 01/23/22 documented as of this encounter
--- OUTSIDE RECORDS SUMMARY | 2025-04-05 14:58 | XMS_ITS | Encounter Summary ---
Author Organization [facility] Address [address] [place] [address] Care Team Providers Care Wallpaperer Name Role Phone Augusto Hanna MD Primary Care Provider [phone] Encounter Details Date Type Department Care Team (Late st Contact Info) Description 10/16/2004 Outpatient Historical [facility] Maternal and Ground Floor [address] [facility] [address] [place] [address] Zeyad Sharif MD [address] [facility] [address] [place] [address] Social History Tobacco Use Types Packs/Day Years Used Date Smoking Tobacco: Never Assessed Comments Unknown Sex and Gender Information Value Date Recorded Sex Assigned at Not on file Legal Sex Female 3:39 AM APPLICATION SYSTEMS ARCHITECT Gender Identity Not on file Sexual Orientation Not on file documented as of this encounter Plan of Treatment Not on file documented as of this encounter Visit Diagnoses Not on filedocumented in this encounter Care Teams Wallpaperer Relationship Specialty Start Date End Date Augusto Hanna MD PCP - General 06/07/08 01/23/22 documented as of this encounter
--- OUTSIDE RECORDS SUMMARY | 2025-04-05 14:58 | XMS_ITS | Encounter Summary ---
Author Organization [facility] Address [address] [place] [address] Care Team Providers Care Retail Customer Service Representative Name Role Phone Augusto Hanna MD Primary Care Provider Encounter Details Date Type Department Care Team (Late st Contact Info) Description 10/21/2004 Outpatient Historical [facility] Maternal and Ground Floor [address] [facility] [address] [place] [address] Kamar Ayoub MD NO ADDRESS ON FILE Social History Tobacco Use Types Packs/Day Years Used Date Smoking Tobacco: Never Assessed Comments Unknown Sex and Gender Information Value Date Recorded Sex Assigned at Not on file Legal Sex Female 3:39 AM 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
--- OUTSIDE RECORDS SUMMARY | 2025-04-05 14:58 | XMS_ITS | Encounter Summary ---
Author Organization [employer] Address [address] [place] [address] Care Team Providers Care Entry Writer Name Role Phone Augusto Hanna MD Primary Care Provider [phone] Encounter Details Date Type Department Care Team (Latest Contact Info) Description 01/11/2001 Inpatient Historical HIS PATIENT IN A BED YumiKt MD [address] [facility] [address] [place] [address] Transient hypertension of , with delivery (Primary Dx) Social History Tobacco Use Types Packs/Day Years Used Date Smoking Tobacco: Never Assessed Comments Unknown Sex and Gender Information Value Date Recorded Sex Assigned at Not on file Legal Sex Female 3:39 AM CRYPTOGRAPHIC CLERK Gender Identity Not on file Sexual Orientation Not on file documented as of this encounter Plan of Treatment Not on file documented as of this encounter Visit Diagnoses Diagnosis Transient hypertension of , with delivery- Primary documented in this encounter Care Teams Entry Writer Relationship Specialty Start Date End Date Augusto Hanna MD PCP - General 06/07/08 01/23/22 documented as of this encounter
--- OUTSIDE RECORDS SUMMARY | 2025-04-05 14:58 | XMS_ITS | Encounter Summary ---
Author Organization [facility] Address [address] [place] [address] Care Team Providers Care Credit Processor Name Role Phone Augusto Hanna MD Primary Care Provider [phone] Encounter Details Date Type Department Care Team (Late st Contact Info) Description 10/17/2003 Outpatient Historical [facility] Internal Medicine [address] [address] Ramon Villagomez MD [address] [place] [address] Social History Tobacco Use Types Packs/Day Years Used Date Smoking Tobacco: Never Assessed Comments Unknown Sex and Gender Information Value Date Recorded Sex Assigned at Not on file Legal Sex Female 3:39 AM COBBLER MCKAY Gender Identity Not on file Sexual Orientation Not on file documented as of this encounter Last Filed Vital Signs Vital Sign Reading Time Taken Comments Blood Pressure 150/88 10/17/2003 3:45 PM COBBLER MCKAY Pulse - - Temperature 36.8 C (98.3 F) 10/17/2003 3:45 PM COBBLER MCKAY Respiratory Rate - - Oxygen Saturation - - Inhaled Oxygen Concentration - - Weight 117 kg (258 lb) 10/17/2003 3:45 PM COBBLER MCKAY Height 163.8 cm (5' 4.5) 10/17/2003 3:45 PM COBBLER MCKAY Body Mass Index 43.6 10/17/2003 3:45 PM COBBLER MCKAY documented in this encounter Plan of Treatment Not on file documented as of this encounter Visit Diagnoses Not on filedocumented in this encounter Care Teams Credit Processor Relationship Specialty Start Date End Date Augusto Hanna MD PCP - General 06/07/08 01/23/22 documented as of this encounter
--- OUTSIDE RECORDS SUMMARY | 2025-04-05 14:58 | XMS_ITS | Encounter Summary ---
Author Organization [facility] Address [address] [place] [address] Care Team Providers Care Clinical Evaluator Name Role Phone Augusto Hanna MD Primary Care Provider Encounter Details Date Type Department Care Team (Late st Contact Info) Description 10/14/[address] 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
--- OUTSIDE RECORDS SUMMARY | 2025-04-05 14:58 | XMS_ITS | Encounter Summary ---
Author Organization [facility] Address [address] [place] [address] Care Team Providers Care Taker Off Name Role Phone Augusto Hanna MD Primary Care Provider [phone] Encounter Details Date Type Department Care Team (Late st Contact Info) Description 04/30/2005 Outpatient Historical [facility] Internal Medicine [address] [address] Augusto Hanna MD [address] [place] [address] Social History Tobacco Use Types Packs/Day Years Used Date Smoking Tobacco: Never Assessed Comments Unknown Sex and Gender Information Value Date Recorded Sex Assigned at Not on file Legal Sex Female 3:39 AM FUSE CUTTER Gender Identity Not on file Sexual Orientation Not on file documented as of this encounter Last Filed Vital Signs Vital Sign Reading Time Taken Comments Blood Pressure 132/68 04/30/2005 3:15 PM CDT Pulse - - Temperature 37.1 C (98.8 F) 04/30/2005 3:15 PM CDT Respiratory Rate - - Oxygen Saturation - - Inhaled Oxygen Concentration - - Weight 108.4 kg (239 lb) 04/30/2005 3:15 PM CDT Height - - Body Mass Index 40.39 10/17/2003 3:45 PM FUSE CUTTER documented in this encounter Plan of Treatment Not on file documented as of this encounter Visit Diagnoses Not on filedocumented in this encounter Care Teams Taker Off Relationship Specialty Start Date End Date Augusto Hanna MD PCP - General 06/07/08 01/23/22 documented as of this encounter
--- OUTSIDE RECORDS SUMMARY | 2025-04-05 14:58 | XMS_ITS | Encounter Summary ---
Author Organization [facility] Address [address] [place] [address] Care Team Providers Care Director Of Alumni Relations Name Role Phone Augusto Hanna MD Primary Care Provider [phone] Encounter Details Date Type Department Care Team (Late st Contact Info) Description 10/11/2004 Outpatient Historical [facility] Maternal and Ground Floor [address] [place] [address] Kamar Ayoub MD NO ADDRESS ON FILE Social History Tobacco Use Types Packs/Day Years Used Date Smoking Tobacco: Never Assessed Comments Unknown Sex and Gender Information Value Date Recorded Sex Assigned at Not on file 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
--- OUTSIDE RECORDS SUMMARY | 2025-04-05 14:58 | XMS_ITS | Encounter Summary ---
Author Organization [facility] Address [address] [place] [address] Care Team Providers Care Burring Machine Operator Name Role Phone Augusto Hanna MD Primary Care Provider [phone] Encounter Details Date Type Department Care Team (Late st Contact Info) Description 10/07/2004 Outpatient Historical [facility] Maternal and Ground Floor S Counts Include [address] At [facility] [address] [place] [address] Randy Douglas MD [facility] [place] [address] Social History Tobacco Use Types Packs/Day Years Used Date Smoking Tobacco: Never Assessed Comments Unknown Sex and Gender Information Value Date Recorded Sex Assigned at Not on file Legal Sex Female 3:39 AM PRINT FINISHER Gender Identity Not on file Sexual Orientation Not on file documented as of this encounter Plan of Treatment Not on file documented as of this encounter Visit Diagnoses Not on filedocumented in this encounter Care Teams Burring Machine Operator Relationship Specialty Start Date End Date Augusto Hanna MD PCP - General 06/07/08 01/23/22 documented as of this encounter
--- OUTSIDE RECORDS SUMMARY | 2025-04-05 14:58 | XMS_ITS | Encounter Summary ---
Author Organization [facility] Address [address] [place] [address] Care Team Providers Care Multiple Wire Sawyer Name Role Phone Augusto Hanna MD Primary Care Provider [phone] Encounter Details Date Type Department Care Team (Late st Contact Info) Description 10/15/2004 Outpatient Historical [facility] Maternal and Ground Floor S [facility] [address] [place] [address] Zeyad Sharif MD [address] [facility] [address] [place] [address] Social History Tobacco Use Types Packs/Day Years Used Date Smoking Tobacco: Never Assessed Comments Unknown Sex and Gender Information Value Date Recorded Sex Assigned at Not on file Legal Sex Female 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
--- OUTSIDE RECORDS SUMMARY | 2025-04-05 14:58 | XMS_ITS | Encounter Summary ---
Author Organization [facility] Address [address] [place] [address] Care Team Providers Care Customer Experience Consultant Name Role Phone Augusto Hanna MD Primary Care Provider [phone] Encounter Details Date Type Department Care Team (Late st Contact Info) Description 10/02/2004 Outpatient Historical [facility] Maternal and Ground Floor S [facility] [address] [place] [address] Zeyad Sharif MD [address] [facility] [address] [place] [address] Social History Tobacco Use Types Packs/Day Years Used Date Smoking Tobacco: Never Assessed Comments Unknown Sex and Gender Information Value Date Recorded Sex Assigned at Not on file Legal Sex Female 3:39 AM JOB CAPTAIN Gender Identity Not on file Sexual Orientation Not on file documented as of this encounter Plan of Treatment Not on file documented as of this encounter Visit Diagnoses Not on filedocumented in this encounter Care Teams Customer Experience Consultant Relationship Specialty Start Date End Date Augusto Hanna MD PCP - General 06/07/08 01/23/22 documented as of this encounter
--- OUTSIDE RECORDS SUMMARY | 2025-04-05 14:58 | XMS_ITS | Encounter Summary ---
Author Organization [facility] Address 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
--- OUTSIDE RECORDS SUMMARY | 2025-04-05 14:58 | XMS_ITS | Clinical Summary ---
Author Organization [facility] Address [address] [place] [address] Phone Care Team Providers Care Fashion Photographer Name Role Phone Augusto Hanna MD Primary Care Provider [phone] Social History Tobacco Use Types Packs/Day Years Used Date Smoking Tobacco: Never Assessed Comments Unknown Sex and Gender Information Value Date Recorded Sex Assigned at Not on file Legal Sex Female 12:20 AM CDT Gender Identity Not on file Sexual Orientation Not on file Plan of Treatment Health Maintenance Due Date Last Done Comments Hepatitis C Virus (HCV) Screening 1965 TdaP Immunization 1965 Colonoscopy 2008 Colorectal Cancer Screening 2008 Cologuard 2013 Immunochemical Fecal Occult Blood 2013 Pneumococcal Immunization (5 0+ years) (1 of 1 - PCV) 2013 Zoster Immunization (1 of 2) 2013 SARS-COV-2 Immunization (1 - season) 2024 Influenza Immunization (Seas on Ended) 2025 Respiratory Syncytial Virus (RSV) Immunization (Adult) (1 - 1-dose 75+ series) 2038 Mammogram Discontinued 10/09/2016 Hepatitis B Immunization Aged Out No longer eligible based on patient's age to complete this topic Human Papillomavirus (HPV) Immunization Aged Out No longer eligible b ased on patient's age to complete this topic Meningococcal Immunization (ACWY) Aged Out No longer eligible based on patient's age to complete this topic Rotavirus Immunization Aged Out No lo nger eligible based on patient's age to complete this topic Procedures Procedure Name Priority Date/Time Associated Diagnosis Comments KIN SCREENING BILATERAL DIGITAL W CAD Routine 10/09/2016 1:42 PM BICYCLE RACER Encounter for screening mammogram for malignant neoplasm of breast from Last 3 Months or Most Recently Relevant to Health Maintenance Results * KIN SCREENING BILATERAL DIGITAL W CAD (10/09/2016 1:42 PM BICYCLE RACER) Anatomical Region Laterality Modality breast Bilateral Mammography 10/09/2016 1:14 PM BICYCLE RACER Narrative 10/10/2016 7:34 AM BICYCLE RACER - KIN SCREENING BILATERAL DIGITAL W CAD BILATERAL DIGITAL SCREENING MAMMOGRAM WITH CAD WITH MEDIOLATERAL OBLIQUE CRANIOCAUDAL: 10/09/2016 The study was acquired using digital technology and interpreted from soft copy. Current study was also evaluated with ICAD version 7.2. CLINICAL: Routine screening. Patient has no complaints. No personal history of cancer. No family history of breast cancer. COMPARISONS: Comparison is made to exams dated: 06/29/2014 [facility] BREAST TISSUE:There are scattered fibroglandular densities in both breasts. FINDINGS: No significant masses, calcifications, or other findings are seen in either breast. There has been no significant interval change. IMPRESSION: BI-RAD 1 NEGATIVE There is no mammographic evidence of malignancy. A 1 year screening mammogram is recommended. The patient has been or will be contacted. The patient will be entered into a reminder system with a target due date of 1 year for her next screening exam. Electronically signed by: Ivan kearns/silvio:10/09/2016 13:47:52 Elevators Inspector: Angeli STILES)(M), [facility] letter sent: Normal Exam Reading location: [facility] BI-RADS: 1 Negative Procedure Note Ivan Vásquez MD - 10/10/2016 - KIN SCREENING BILATERAL DIGITAL W CAD BILATERAL DIGITAL SCREENING MAMMOGRAM WITH CAD WITH MEDIOLATERAL OBLIQUE CRANIOCAUDAL: 10/09/2016 The study was acquired using digital technology and interpreted from soft copy. Current study was also evaluated with ICAD version 7.2. CLINICAL: Routine screening. Patient has no complaints. No personal history of cancer. No family history of breast cancer. COMPARISONS: Comparison is made to exams dated: 06/29/2014 and 10/29/2009 [facility]. BREAST TISSUE:There are scattered fibroglandular densities in both breasts. FINDINGS: No significant masses, calcifications, or other findings are seen in either breast. There has been no significant interval change. IMPRESSION: BI-RAD 1 NEGATIVE There is no mammographic evidence of malignancy. A 1 year screening mammogram is recommended. The patient has been or will be contacted. The patient will be entered into a reminder system with a target due date of 1 year for her next screening exam. Electronically signed by: Ivan kearns/silvio:10/09/2016 13:47:52 Elevators Inspector: Angeli KENNEDY(Darin)(Tru), [facility] letter sent: Normal Exam Reading location: [facility] BI-RADS: 1 Negative us Augusto Hanna MD IMG MAMMO ORDERABLES Final Re sult from Last 3 Months or Most Recently Relevant to Health Maintenance Care Teams Fashion Photographer Relationship Specialty Start Date End Date Augusto Hanna MD [address] [place] [id number] PCP - General 10/03/16
--- OUTSIDE RECORDS SUMMARY | 2025-04-05 14:58 | XMS_ITS | Encounter Summary ---
Author Organization [facility] Address [address] [place] [address] Care Team Providers Care Agricultural And Forestry Supervisor Name Role Phone Augusto Hanna MD Primary Care Provider [phone] Encounter Details Date Type Department Care Team (Late st Contact Info) Description 10/15/2004 Outpatient Historical [facility] Maternal and Ground Floor S [facility] [address] [place] [address] Zeyad Sharif MD [address] [facility] [address] [place] [address] Social History Tobacco Use Types Packs/Day Years Used Date Smoking Tobacco: Never Assessed Comments Unknown Sex and Gender Information Value Date Recorded Sex Assigned at Not on file Legal 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
--- OUTSIDE RECORDS SUMMARY | 2025-04-05 14:58 | XMS_ITS | Clinical Summary ---
Author Organization [facility] Address [address] [place] [address] Care Team Providers Care Chemistry Specialist Name Role Phone Unavailable Primary Care Provider Unavailabl e Allergies Active Allergy Reactions Criticality Noted Date Comments Canagliflozin Rash Low 03/29/2014 Dulaglutide Diarrhea,Nausea and Vomiting Low 2015 Metformin Diarrhea,Nausea and Vomiting Low 013 Sitagliptin Diarrhea,Nausea and Vomiting Low 2012 Medications aspirin (LISBETH CHEWABLE) 81 mg Tablet, Chewable Take 81 mg by mouth daily. Active nitroglycerin (NITROSTAT) 0.4 mg Tablet, Sublingual Place 1 Tablet (0.4 mg) under tongue every 5 minutes as needed for Chest Pain. 25 Tablet 11 6 Active glimepiride (AMARYL) 4 mg tablet Take 2 Tablets (8 mg) by mouth daily with breakfast. 180 Tablet 3 8 Active furosemide (LASIX) 40 mg tablet Take 1 Tablet (40 mg) by mouth daily. 90 Tablet 3 8 Active mometasone-formoter ol (DULERA) 200-5 mcg/actuation inhaler LOT:[id number] EX:08/14/18 QTY:2. 1 Gram 8 Active gabapentin (NEURONTIN) 300 mg capsule Take 1 Capsule (300 mg) by mouth daily at bedtime. 90 Capsule 3 9 Active traMADol (ULTRAM) 50 mg tabletIndications:O ther osteoarthritis of spine, lumbar region Take 1 Tablet (50 mg) by mouth every 6 hours as needed for Pain. 60 Tablet 9 Active metoprolol succinate (TOPROL XL) 25 mg Extended Release 24 hour tablet TAKE 1 & 1/2 (ONE & ONE-HALF) TABLETS BY MOUTH ONCE DAILY 135 Tablet 3 9 Active losartan (COZAAR) 25 mg tablet TAKE 1 TABLET BY MOUTH TWICE DAILY 180 Tablet 3 9 Active empagliflozin (JARDIANCE) 25 mg tablet Take 1 Tablet (25 mg) by mouth daily junior paralegal. 30 Tablet 5 9 Active atorvastatin (LIPITOR) 80 mg tablet TAKE 1 TABLET BY MOUTH ONCE DAILY LATE IN THE DAY 30 Tablet 11 9 Active Active Problems Patient Care Coordination No te Formatting of this note migh t be different from the original. Prev 10/13/18 Problem Noted Date Diagnosed Date Gastroesophageal reflux disease without esophagi tis 10/02/2016 Chronic systolic (congestive) heart failure 10/2015 Severe obesity (BMI 35.0-39.9) with comorbidity 03/05/2016 Non-ischemic cardiomyopathy 02/07/2016 Type 2 diabetes mellitus wit hout complication, without long-term current use of insulin 03/30/2012 Hyperplastic colonic polyp 03/17/2012 Overview (03/17/2012): 02/2010 Family hx of colon cancer 03/17/2012 Overview (03/17/2012): Brother, dx age 52 Anal fissure 03/17/2012 Constipation 03/17/2012 Moderate persistent asthma with acute exacerbati on 12/03/2007 Other nonspecific abnormal serum enzyme levels 1 Mixed hyperlipidemia 07/16/2006 Allergic rhinitis 01/08/2006 Backache, unspecified 08/25/2005 Osteoarthrosis, unspecified whether generalized or localized, unspecified site 08/25/2005 Essential hypertension 10/17/2003 Sleep apnea Resolved Problems Problem Noted Date Diagnosed Date Resolved Date Obesity (BMI 35.0-39.9) without comorbidity 03/05/2016 12/02/2016 Acute on chronic systolic he art failure due to valvular disease 02/07/2016 03/05/2016 Impaired fasting glucose 12/03/2007 Obesity, unspecified 07/16/2006 017 Dysphagia 07/16/2006 06/09/2008 Overview (10/30/2010): Updating IMO/ICD9 Code and Description Ingrowing nail 07/16/2006 06/09/2008 Unspecified sleep apnea 04/16/200604/2010 Other forms of migraine, wit h intractable migraine, so stated, without mention of status migrainosus 01/08/2006 09/10/2010 Chest pain, unspecified 10/15/200504/2010 Routine general medical exam ination at a health care facility 10/09/2005 06/09/2008 Screening for thyroid disorder 10/09/2005 06/09/2008 Screening for lipoid disorders 10/09/2005 06/09/2008 Edema 10/09/2005 06/09/2008 Benign neoplasm of skin, site unspecified 08/25/2005 06/09/2008 Cough 04/30/2005 06/09/2008 Abdominal pain, generalized 03/26/2005 06/09/2008 Acute bronchitis 10/17/2003 06/09/2008 Immunizations Immunization Administration Dates Next Due (ADACEL/BOOSTRIX)(10 YR UP) TDAP VACCINE, 0.5ML, IM 10/16/2009 (PNEUMOVAX 23)(50 YRS UP) PN EUMOCOCCAL POLYSACCHARIDE (PPV23) 0.5 ML, IM 02/10/2018,10/16/2009 Influenza Seasonal Unspecified Formulation IM ,10/24/2013 Family History Medical History Relation Name Comments Diabetes Brother 1 Heart Disease Brother 1 Cancer Brother 2 colon Diabetes Father Relation Name Status Comments Brother 1 Brother 2 Father Social History Tobacco Use Types Packs/Day Years Used Date Smoking Tobacco: Never Smokeless Tobacco: Never Alcohol Use Standard Drinks/Week Comments No 0 (1 standard drink = 0.6 oz pur e alcohol) Comments No Sex and Gender Information Value Date Recorded Sex Assigned at Not on file Legal Sex Female 3:39 AM CHARGE NURSE Gender Identity Not on file Sexual Orientation Not on file Last Filed Vital Signs Vital Sign Reading Time Taken Comments Blood Pressure 124/80 10/13/2018 9:38 AM CHARGE NURSE Pulse 62 08/31/2018 3:05 PM CHARGE NURSE Temperature 36.9 C (98.4 F) 10/13/2018 9:38 AM CHARGE NURSE Respiratory Rate 16 12/02/2016 3:20 PM CHARGE NURSE Oxygen Saturation 97% 08/31/2018 3:05 PM CHARGE NURSE Inhaled Oxygen Concentration - - Weight 95.3 kg (210 lb) 10/13/2018 9:38 AM CHARGE NURSE Height 162.6 cm (5' 4) 10/13/2018 9:38 AM CHARGE NURSE Body Mass Index 36.05 10/13/2018 9:38 AM CHARGE NURSE Plan of Treatment Health Maintenance Due Date Last Done Comments HPV/Cotest (-) 1984 CERVICAL CANCER SCREENING 1993 HPV/Cotest (-) 1993 PAP SMEAR 1993 FIT-DNA Q 3 years 2008 FIT/FOBT Q 1 year 2008 Flex Sig/CT Colonography Q 5 years 2008 ZOSTER VACCINE (1 of 2) 2013 DIABETES ANNUAL RETINAL EXAM 08/09/201402/2013, 10/04/2012, 10/04/1913 BREAST CANCER SCREENING 10/09/2017 10/09/19 17, 06/29/2014, 06/29/2014, Additional history exists DIABETES MICROALBUMIN ANNUAL SCREEN 02/10/2019 02/10/2018, 01/23/2016, 06/22/2014, Additional history exists LDL CHOLESTEROL ANNUAL 02/10/2019 8, 08/12/2016, 01/23/2016, Additional history exists DTAP/TDAP/TD VACCINES (2 - T d or Tdap) 10/16/2019 10/16/2009 COLORECTAL SCREENING 02/06/2020 02/05/2010 Colorectal Cancer Screening 02/06/2020 DIABETES HBA1C Q 6 MONTHS 06/29/20222021, 10/13/2018, 05/26/2018, Additional history exists DIABETES ANNUAL FOOT EXAM 12/26/20222021, 02/10/2018, 02/10/2018, Additional history exists RSV VACCINE (60+ or ) (1 - Risk 60-74 years 1-dose series) 2023 INFLUENZA VACCINE (#1) 2024 9, 07/03/2019, 10/24/2013 Procedures Procedure Name Priority Date/Time Associated Diagnosis Comments POC HEMOGLOBIN A1C Routine 10/13/2018 10 :17 AM CHARGE NURSE Type 2 diabetes mellitus without complication, without long-term current use of insulin ([facility]) MICROALBUMIN/CREATI NINE RATIO, RANDOM UR Routine 02/10/2018 10:57 AM CDT Routine general medical examination at health care facility LIPID PANEL Routine 02/10/2018 10:57 AM CDT Routine general medical examination at health care facility MAMMO SCREEN BILAT W OR WO CAD Routine 10/09/2016 ENDOSCOPY, COLON, DIAGNOSTIC Routine 02/05/2010 from Last 3 Months or Most Recently Relevant to Health Maintenance Results * (ABNORMAL) POC HEMOGLOBIN A1C (10/13/2018 10:17 AM CHARGE NURSE) HGB A1C POC 7.3(A) 4.0 - 6.0 % [facility] Blood, capillary 10/13/2018 10:17 AM CHARGE NURSE us Natalia Maurer TRAFFIC DIVISION COMMANDING OFFICER POINT OF CARE TESTING Final Resu lt Performing Organization Address City/State/[facility] Co de Phone Number [facility] [id number] [address] [place] [address] * (ABNORMAL) MICROALBUMIN/CREATININE RATIO, RANDOM UR (02/10/2018 10:57 AM CDT) MICROALBUMIN, URINE 4.5 No Reference Range mg/dL 02/10/2018 5:17 PM CDT [facility] CREATININE, URINE 254.2(H) 29.0 - 226.0 mg/dL 02/10/2018 5:17 PM CDT [facility] Comment: Reference Range varies with fluid intake and diet. MICROALBUMIN/ CREAT RATIO, UR 17.7 <25.0 mg/g 02/10/2018 5:17 PM CDT [facility] Urine URINE SPECIMEN OBTAINED BY CLEAN CATCH PROCEDURE / Unknown Collection / Unknown 02/10/2018 10:57 AM CDT 02/10/2018 10:57 AM CDT [facility] - 02/10/2018 5:17 PM CDT Condition Microalbumin/Creat ratio Normal Males <17 Normal Females <25 Microalbuminuria Males 17-299 Microalbuminuria Females 25-299 Overt proteinuria >=300 us Augusto Hanna MD URINE ORDERABLES Final Result [facility] garbs [facility]# [id number] [address] [place], [place] [address] * (ABNORMAL) LIPID PANEL (02/10/2018 10:57 AM CDT) [facility] CHOLESTEROL 180 <200 mg/dL 02/10/2018 4:31 PM [facility] garbs [facility] TRIGLYCERIDE 200(H) <150 mg/dL 02/10/2018 4:31 PM [facility] garbs [facility] HDL 36(L) 40 - 59 mg/dL 02/10/2018 4:31 PM [facility] garbs [facility] LDL CALCULATED 104(H) <100 mg/dL 02/10/2018 4:31 PM [facility] garbs [facility] NON-HDL CHOLESTEROL 144(H) <130 mg/dL 02/10/2018 4:31 PM [facility] garbs [facility] Blood Venipuncture / Unknown 02/10/2018 10:57 AM CDT 02/10/2018 10:57 AM T [facility] - 02/10/2018 4:31 PM CDT TOTAL CHOLESTEROL mg/dL Desirable <200 Borderline high 200-239 High >=240 TRIGLYCERIDES mg/dL Normal <150 Borderline high 150-199 High 200-499 Very high >=500 HDL CHOLESTEROL mg/dL Low <40 Normal 40-59 Desirable >=60 NON HDL CHOLESTEROL mg/dL Optimal <130 Near Optimal 130-159 Borderline High 160-189 Very High >=190 Calculated LDL mg/dL Optimal <100 Near Optimal 100-129 Borderline High 130-159 High 160-189 Very High >=190 ATPIII Guidelines Reference Ranges for Lipid Panels (NCEP/AMA) Augusto Hanna MD CHEMISTRY ORDERABLES Final Re sult [facility]# [id number] [address] [place] [address] * MAMMO SCREEN BILAT W OR WO CAD (10/09/2016) Anatomical Region Laterality Modality Breast Bilateral Other Abstract Provider MAMMO ORDERABLES Edited Result - Final * ENDOSCOPY, COLON, DIAGNOSTIC (02/05/2010) Augusto Hanna MD GI PROCEDURE ORDERABLES Final Result Performing Organization Address City/[facility]/ZIP Co de Phone Number [facility] from Last 3 Months or Most Recently Relevant to Health Maintenance Insurance BLUE ACCESS CHOICE Advance Directives For more information, please contact: [phone] * Full Code (Latest Code Status on File) Date Activated Date Inactivated Comments 10/08/2016 9:15 AM 10/08/2016 11:53 AM
--- OUTSIDE RECORDS SUMMARY | 2025-04-05 14:58 | XMS_ITS | Encounter Summary ---
Author Organization [facility] Address [address] [place] [address] Care Team Providers Care Making Machine Operator Name Role Phone Augusto Hanna MD Primary Care Provider Encounter Details Date Type Department Care Team (Late st Contact Info) Description 10/18/2004 Outpatient Historical [facility] Maternal and Ground Floor [address] [facility] [place] [address] Kamar Ayoub MD NO ADDRESS ON FILE Social History Tobacco Use Types Packs/Day Years Used Date Smoking Tobacco: Never Assessed Comments Unknown Sex and Gender Information Value Date Recorded Sex Assigned at Not on file 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
--- OUTSIDE RECORDS SUMMARY | 2025-04-05 14:58 | XMS_ITS | Encounter Summary ---
Author Organization [employer] Address [address] [place] [address] Care Team Providers Care Fire Extinguisher Technician Name Role Phone Augusto Hanna MD Primary Care Provider [phone] Encounter Details Date Type Department Care Team (Latest Contact Info) Description 07/16/2004 Inpatient Historical HIS PATIENT IN A BED YumiKt MD [address] 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
--- OUTSIDE RECORDS SUMMARY | 2025-04-05 14:58 | XMS_ITS | Encounter Summary ---
Author Organization [facility] Address [address] [place] [address] Care Team Providers Care Medical Officer Name Role Phone Augusto Hanna MD Primary Care Provider [phone] Encounter Details Date Type Department Care Team (Late st Contact Info) Description 10/17/2004 Outpatient Historical [facility] Maternal and Ground Floor S [facility] [address] [place] [address] Mansi Chavez MD [address] [place] [address] Social History Tobacco Use Types Packs/Day Years Used Date Smoking Tobacco: Never Assessed Comments Unknown Sex and Gender Information Value Date Recorded Sex Assigned at Not on file 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
--- OUTSIDE RECORDS SUMMARY | 2025-04-05 14:58 | XMS_ITS | Encounter Summary ---
Author Organization [facility] Address [address] [place] [address] Care Team Providers Care Case Finishing Machine Adjuster Name Role Phone Augusto Hanna MD Primary Care Provider [phone] Encounter Details Date Type Department Care Team (Late st Contact Info) Description 03/26/2005 Outpatient Historical [facility] Internal Medicine [address] [address] Augusto Hanna MD [address] [place] [id number] Social History Tobacco Use Types Packs/Day Years Used Date Smoking Tobacco: Never Assessed Comments Unknown Sex and Gender Information Value Date Recorded Sex Assigned at Not on file 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 Gender Identity Not on file Sexual Orientation Not on file documented as of this encounter Last Filed Vital Signs Vital Sign Reading Time Taken Comments Blood Pressure 132/70 03/26/2005 3:15 PM CDT Pulse - - Temperature - - Respiratory Rate - - Oxygen Saturation - - Inhaled Oxygen Concentration - - Weight 108.4 kg (239 lb) 03/26/2005 3:15 PM CDT Height - - Body Mass Index 40.39 10/17/2003 3:45 PM CUSTOMER SERVICE CORRESPONDENCE CLERK documented in this encounter Plan of Treatment Not on file documented as of this encounter Visit Diagnoses Not on filedocumented in this encounter Care Teams Case Finishing Machine Adjuster Relationship Specialty Start Date End Date Augusto Hanna MD PCP - General 06/07/08 01/23/22 documented as of this encounter
[2025-04-05 15:34] LABS: Estimated Glomerular Filt Rate > 60
== END 2025-04-05 14:54 | disposition home or self-care (01) ==
PROVIDERS: PCP Nurse Practitioner Family; Visit Provider Internal Medicine Cardiovascular Disease
DX: I71.40 Abdominal aortic aneurysm, without rupture, unspecified (principal)
CPT/HCPCS: 71275; Q9967